=== PATIENT | male | born 1995 | race Caucasian/White ===

== ENCOUNTER 2024-11-11 08:30 | Outpatient (CLI) | payer BC, SELFPAY | END 2024-11-11 08:31 | disposition home or self-care (01) | LOC: AMB 11-12 09:43 | PROVIDERS: PCP Family Medicine; Visit Provider Emergency Medicine | DX: M54.9 Dorsalgia, unspecified (principal); M54.2 Cervicalgia | CPT/HCPCS: A0425; A0429 ==

== ENCOUNTER 2024-11-11 09:15 | Emergency (ER) | payer BC, SELFPAY ==
--- OUTSIDE RECORDS SUMMARY | 2024-11-11 09:08 | XMS_ITS | Encounter Summary ---
Author Organization [facility] Address [address] [place] [address] Care Team Providers Care Network Systems Analyst Name Role Phone AugustineLucy APRN, C.N.P. Primary Care Provide r Reason for Visit * Reason Onset Date Comments Appt Request 09/17/2024 Encounter Details Date Type Department Care Team (Late st Contact Info) Description 09/17/2024 Clinical Communication Department of Family Medicine in [place], [place] [address] [place] [address] Karen Alvarez APRN, C.N.P., M.S.N. [address] [place] [id number] Appt Request Social History Tobacco Use Types Packs/Day Years Used Date Smoking Tobacco: Former Cigarettes Q uit: 06/24/2020 Passive Smoke Exposure: Past Smokeless Tobacco: Never Alcohol Use Standard Drinks/Week Comments Not Currently 0 (1 standard drink = 0.6 oz pur e alcohol) last used 03/08 [facility] Utilities Answer Date Recorded In the past 12 months has e electric, gas, oil, or water company threatened to shut off services in your home? No 06/08/2024 Humiliation, Afraid, Rape, and Kick questionnair e Answer Date Recorded Within the last year, have y ou been afraid of your partner or ex-partner? No 03/03/2023 Within the last year, have y ou been humiliated or emotionally abused in other ways by your partner or ex-partner? No Within the last year, have y ou been kicked, hit, slapped, or otherwise physically hurt by your partner or ex-partner? No 03/03/2023 Within the last year, have y ou been raped or forced to have any kind of sexual activity by your partner or ex-partner? No 03/03/2023 Social Connection and Isolat ion Panel [NHANES] Answer Date Recorded In a typical week, how many times do you talk on the phone with family, friends, or neighbors? More than three times a week 12/05/2022 How often do you get togethe r with friends or relatives? Once a week 12/05/2022 How often do you attend chur or latter day services? Never 12/05/2022 Do you belong to any clubs o r organizations such as restoration groups, unions, fraternal or athletic groups, or school groups? No 12/05/2022 How often do you attend meet ings of the clubs or organizations you belong to? Never 12/05/2022 Are you , , di vorced, , never , or living with a partner? Never 12/05/2022 AUDIT-C Answer Date Recorded Q1: How often do you have a drink containing alc ohol? 2-3 times a week 12/05/2022 Q2: How many drinks containi ng alcohol do you have on a typical day when you are drinking? 1 or 2 12/05/2022 Q3: How often do you have si x or more drinks on one occasion? Monthly 12/05/2022 Overall Financial Resource Strain (CARDIA) Answe r Date Recorded How hard is it for you to pa y for the very basics like food, housing, medical care, and heating? Very hard 03/03/2023 PHQ-2 Answer Date Recorded PHQ-2 Score 6 09/20/2024 [facility] - Occupational Stress Questionnaire Answer Date Recorded Do you feel stress - tense, restless, nervous, or anxious, or unable to sleep at night because your mind is troubled all the time - these days? Very much 12/05/2022 Exercise Vital Sign Answer Date Recorde d On average, how many days pe r week do you engage in moderate to strenuous exercise (like a brisk walk)? 1 day 06/08/2024 On average, how many minutes do you engage in exercise at this level? 30 min 06/08/2024 Hunger Vital Sign Answer Date Recorded Within the past 12 months, y ou worried that your food would run out before you got the money to buy more. Never true 06/08/20 24 Within the past 12 months, t he food you bought just didn't last and you didn't have money to get more. Never true 06/08/2024 PRAPARE - Transportation Answer Date Re corded In the past 12 months, has l ack of transportation kept you from medical appointments or from getting medications? Yes 05/23 In the past 12 months, has l ack of transportation kept you from meetings, work, or from getting things needed for daily living? Yes 06/08/2024 Depression Answer Date Recor ded PHQ-9 Total Score (max 27) 27 09/20 Nutrition Answer Date Recorded On average, how many serving s of fruits and vegetables do you eat per day (serving size is equal to 1 cup or approximately the size of a tennis ball)? 0-2 06/08/2024 Dental Answer Date Recorded Dental: Regular Dentist No 11/10/19 21 Employment Answer Date Recorded Employment status Unemployed/not in th e paid workforce and NOT seeking employment 06/08/2024 Housing Stability Answer Date Recorded What is your living situation today? I have a [facility] place to live 06/08/2024 Education Answer Date Recorded What is the highest level of school you have completed or the highest degree you have received? 12th grade 03/30/2020 Sex and Gender Information Value Date Recorded Sex Assigned at Male 07/01/2021 9:57 AM CDT Legal Sex Male 10:06 PM NIGHT SHIFT Gender Identity Male 06/03/2020 8:27 AM CDT Sexual Orientation Lesbian or Singh 06/03/2020 8: 27 AM CDT documented as of this encounter Plan of Treatment Upcoming Encounters Date Type Department Care Team (Late st Contact Info) Description 11/19/2024 8:00 AM NIGHT SHIFT Telemedicine Department of Neurology in [place], [place] [address] [place] [address] Albino Vargas M.B., Ch.B. [address] [place] [address] Discharge Disposition: Home or Self Care documented as of this encounter Visit Diagnoses Not on filedocumented in this encounter Additional Health Concerns Assessment Noted Time PHQ-9 Depression Total Score: 27 024 7:17 PM NIGHT SHIFT documented as of this encounter Care Teams Network Systems Analyst Relationship Specialty Start Date End Date Lucy Augustine APRN, C.N.P. [address] [place] [phone] PCP - General Family Medicine 03/14/22 documented as of this encounter
--- OUTSIDE RECORDS SUMMARY | 2024-11-11 09:08 | XMS_ITS | Clinical Summary ---
Author Organization [facility] Address [facility] [place] [address] Care Team Providers Care Wafer Polishing Worker Name Role Phone Vannessa Alas DO Primary Care Provider [phone] Remedios Thomas MD Unavail able Allergies Active Allergy Reactions Criticality Noted Date Comments Baclofen Rash 07/02/2021 Medications divalproex (DEPAKOTE ER) 500 mg Extended-Releas e tablet Take 1,000 mg by mouth at bedtime. 4 Active lamoTRIgine (LAMICTAL XR) 200 mg extended release tablet Take 400 mg by mouth once daily. 3 Active hydrOXYzine HCL (ATARAX) 50 mg tabletIndicatio ns:Severe major depressive disorder (HC),Generalize d anxiety disorder Take 1 Tablet (50 mg) by mouth 3 times daily if needed (anxiety). 90 Tablet 5 Active desvenlafaxine succinate (PRISTIQ) 50 mg Extended-Releas e tabletIndicatio ns:Severe major depressive disorder (HC) Take 1 Tablet (50 mg) by mouth once daily. 30 Tablet 5 Active naltrexone (REVIA) 50 mg tabletIndicatio ns:Alcohol use disorder 25 mg (1/2 pill) twice a day 30 Tablet 5 Active FLUoxetine (PROZAC) 40 mg capsuleIndicati ons:Severe major depressive disorder (HC),Panic disorder,Genera lized anxiety disorder Take 1 Capsule (40 mg) by mouth once daily. 30 Capsule 5 Active diazePAM (VALIUM) 10 mg tabletIndicatio ns:Severe major depressive disorder (HC),Panic disorder,Recurr ent insomnia,Genera lized anxiety disorder Take 1 Tablet (10 mg) by mouth two times daily. 60 Tablet 5 Active citalopram (CELEXA) 40 mg tablet Take 40 mg by mouth. 3 10/19/19 25 Discontinu ed(*Medica tion adjustment ) hydrOXYzine HCL (ATARAX) 50 mg tablet Take 50 mg by mouth every 6 hours if needed. 3 10/19/19 25 Discontinu ed(Reorder (E-cancel not sent)) diazePAM (VALIUM) 5 mg tablet Take 5 mg by mouth once daily if needed. 4 10/19/19 25 Discontinu ed(Reorder (E-cancel not sent)) desvenlafaxine succinate (PRISTIQ) 100 mg extended release tablet Take 100 mg by mouth once daily in the morning. 4 10/19/19 25 Discontinu ed(*Medica tion adjustment ) valACYclovir (VALTREX) 1 gram tablet Take 1 g by mouth one time if needed (genital herpes). 4 10/19/19 25 Discontinu ed(*Patien t states no longer taking) propranoloL (INDERAL) 20 mg tablet Take 20 mg by mouth two times daily. BID PRN anxiety 4 10/19/19 25 Discontinu ed(*Patien t states no longer taking) diazePAM (VALIUM) 5 mg tabletIndicatio ns:Severe major depressive disorder (HC),Generalize d anxiety disorder,Panic attacks Take 1 Tablet (5 mg) by mouth once daily if needed (acute anxiety). 30 Tablet 5 10/29/19 25 Discontinu ed(Reorder (E-cancel not sent)) desvenlafaxine succinate (PRISTIQ) 25 mg extended release tabletIndicatio ns:Severe major depressive disorder (HC) Take 1 Tablet (25 mg) by mouth once daily. 30 Tablet 5 11/02/19 25 Discontinu ed(*Medica tion adjustment ) citalopram (CeleXA) 20 mg tabletIndicatio ns:Severe major depressive disorder (HC) Take 1 Tablet (20 mg) by mouth once daily. 30 Tablet 5 11/02/19 25 Discontinu ed(*Med complete/R egimen complete/L evel of care change) citalopram (CeleXA) 10 mg tabletIndicatio ns:Severe major depressive disorder (HC) Take 1 Tablet (10 mg) by mouth once daily. 30 Tablet 5 11/02/19 25 Discontinu ed(*Med complete/R egimen complete/L evel of care change) diazePAM (VALIUM) 5 mg tabletIndicatio ns:Severe major depressive disorder (HC),Generalize d anxiety disorder,Panic attacks Take 1 Tablet (5 mg) by mouth two times daily. As needed for acute anxiety, panic attacks 60 Tablet 1 5 11/02/19 25 Discontinu ed(*Medica tion adjustment ) Active Problems Problem Noted Date Diagnosed Date Alcohol use disorder, moderate, in early remissi on 10/29/2024 Panic attacks 10/29/2024 Recurrent insomnia 10/19/2024 Seizure 10/04/2024 Severe episode of recurrent major depressive disorder, without psychotic features 10/04/2024 Inability to cope 02/06/2023 Nicotine dependence 12/02/2022 Alcohol use disorder 07/18/2022 Primary hypertension 07/18/2022 Problem related to unspecified psychosocial circ umstances 09/12/2021 Hypertrophy of bone 08/03/2021 Opioid dependence in remission 08/03/2021 Panic disorder 02/26/2021 Dyssomnia 10/02/2020 Muscle spasm of back 06/15/2020 Limbic encephalitis 05/18/2020 Generalized anxiety disorder 01/02/2016 Severe major depressive disorder 01/02/2016 Resolved Problems Problem Noted Date Diagnosed Date Resolved Date Alcohol dependence in remission 01/17/2023 10/04/2024 Nondependent opioid abuse 08/03/2021 Encephalitis, myelitis, and encephalomyelitis 05/18/2010/04/2024 Encounters Date Type Department Care Team Description 11/10/2024 12:55 PM GUITAR MAKER HAND Telemedicine [facility] [place] [address] Nataliya Tineo NP Telehealth (Back and teeth pain/No vitals taken -virtual visit./) 11/10/2024 Travel 11/10/2024 Nurse Triage [facility] [address] [place] [address] Vannessa Alas, DO Back Injury 11/09/2024 Travel 11/09/2024 Telephone [facility] [address] [place] [address] Heather Moura, RN [facility] 11/08/2024 12:40 PM [employer]AR MA[employer] HAND Telemedicine [facility] [address] [place] [address] Avery Tuttle NP Back Pain 11/08/2024 Nurse Triage [facility] [address] [place] [address] Vannessa Alas, DO Back Injury 11/08/2024 Travel 11/08/2024 Telephone [facility] [address] [place] [address] Elvira Hernandez [facility] Care Coordination 11/08/2024 Telephone [facility] [address] [place] [address] Remedios Thomas MD Medication Management 11/07/2024 Travel 11/02/2024 1:15 PM GUITAR MAKER HAND Telemedicine [facility] [address] [place] [address] Remedios Thomas MD Telehealth ([place]); Medication Management 11/01/2024 Travel 10/29/2024 10:30 AM GUITAR MAKER HAND Telemedicine [facility] [address] [place] [address] Remedios Thomas MD Telehealth ([place]); Medication Management 10/28/2024 Travel 10/21/2024 Telephone [facility] [address] [place] [address] Remedios Thomas MD Referral (Mental Health ) 10/19/2024 8:30 AM GUITAR MAKER HAND Telemedicine [facility] [address] [place] [address] Remedios Thomas MD Mental Health Intake; Telehealth 10/04/2024 1:10 PM GUITAR MAKER HAND Office Visit [facility] [address] [place] [address] Vannessa Alas, Establish Care (recently moved here, would like referral for new psychiatrist) 10/04/2024 Travel 10/01/2024 Travel 09/25/2024 Travel from Last 3 Months Immunizations Name Administration Dates Next Due DTP 01/20/2002, 8,06/18/1997,05/03,03/01/1997 DTP-HIB 06/18/1997 HIB PRP-T (ActHIB,Hiberix) 01/26/1998,,05/03/1997,03/01 HPV 9 (Gardasil 9) 08/02/2022 Hep B, Adolescent/high Risk Infant 05/03/1997,,1996 Hepatitis A (Peds) 07/04/2001,04/09/2000 Hepatitis A (Peds),Unspecified 07/04/2001,1999 Hepatitis B (Adult) 04/09/2000,05/03/1997,1996 Hepatitis B (Peds) 04/09/2000,05/03/1997, 997 Hepatitis B, Unspecified 05/03/1997,03/01/1997 Hib Conjugate, Unspecified 01/26/1998,,05/03/1997,03/01 Inactivated Polio Vaccine 07/04/2001,01/26/1998 Influenza Virus, Unspecified 08/02/2022,08/29/20 20,07/16/2012 Influenza, IIV4 12/02/2022,,06/02/2019,07/16 MMR 07/04/2001,01/26/1998 Meningococcal Vaccine (Menactra) 05/15/2009 Oral Polio Vaccine 01/26/1998 Pneumococcal Conj 20-valent (Prevnar 20) 08/02/2022 Polio Virus, Unspecified 07/04/2001,03/1998,05/03/1997,03/01 Smallpox-Monkeypox (Jynneos) Live, PF 05/12/2024 Tdap 03/04/2022,05/15/2009 Tuberculin (PPD) 10/14/2018,10/07/2018 Tuberculin Skin Test, Unspecified 10/14/2018, Varicella Vaccine 05/15/2009,01/26/1998 Social History Tobacco Use Types Packs/Day Years Used Date Smoking Tobacco: Never Smokeless Tobacco: Never Tobacco Cessation:Counseling Given: Not Answered Alcohol Use Standard Drinks/Week Comments Not Currently 2 (1 standard drink = 0.6 oz pur e alcohol) PHQ-2 Answer Date Recorded PHQ-2 TOTAL SCORE 6 11/01/2024 Social Connections Answer Date Recorded Do you often feel lonely or isolated from those around you? 4 09/25/2024 Financial Resource Strain Answer Date R ecorded Difficulty of Paying Living Expenses 1 09/25/2024 Difficulty of Paying Living Expenses 2 09/25/2024 Food Insecurity Answer Date Recorded Do you worry your food will run out before you are able to buy more? 2 09/25/2024 Transportation Needs Answer Date Record ed Does lack of transportation keep you from medica l appointments? 2 09/25/2024 Does lack of transportation keep you from work, meetings or getting things that you need? 2 09/25/2024 Housing Stability Answer Date Recorded What is your housing situation today? 1 09/25/2024 Utilities Answer Date Recorded Do you have trouble paying f or utilities (for example, heat, electricity, water, phone)? 1 09/25/2024 Sex and Gender Information Value Date Recorded Sex Assigned at Not on file Legal Sex Male 12:29 PM GUITAR MAKER HAND Gender Identity Not on file Sexual Orientation Not on file Obstetrics History Last Filed Vital Signs Vital Sign Reading Time Taken Comments Blood Pressure 119/76 10/04/2024 1:19 PM GUITAR MAKER HAND Pulse 93 10/04/2024 1:19 PM GUITAR MAKER HAND Temperature 36.5 C (97.7 F) 06/29/2023 10:38 AM CDT Respiratory Rate 20 05/14/2023 9:38 AM CDT Oxygen Saturation 95% 06/29/2023 10:38 AM CDT Inhaled Oxygen Concentration - - Weight 100.2 kg (221 lb) 10/04/2024 1:19 PM GUITAR MAKER HAND Height 177.8 cm (5' 10) 05/14/2023 9:38 AM CDT Body Mass Index 31.71 05/14/2023 9:38 AM CDT Plan of Treatment Upcoming Encounters Date Type Department Care Team (Late st Contact Info) Description 11/11/2024 2:00 PM GUITAR MAKER HAND Office Visit [facility] [address] [place] [address] Vannessa Alas DO [address] [place] [address] 11/16/2024 9:30 AM GUITAR MAKER HAND Telemedicine [facility] [address] [place], [place] [address] Remedios Thomas MD [address] [address] 11/19/2024 8:00 AM GUITAR MAKER HAND Appointment [facility] [address] [place] [address] Health Maintenance Due Date Last Done Comments BMI (ht and wt on same day) for age 18+ 05/14/2024 05/14/2023, 09/23/2019 COVID-19 vaccine series ( season) 2024 07/26/2021, 10/26/2020, 10/05/2020 Influenza for age 9-49 05/23/2024 , 08/02/2022, 08/02/2022, Additional history exists Depression screening for age 12+ 11/02/2025 11/02/2024, 11/01/2024, 10/29/2024, Additional history exists Tetanus booster 03/04/2032 03/04/2022, 05/15/2009 HIV for age 15-65 Completed 08/31/2015, 08/31/2015 Hepatitis C screening for ag e 18-79 Completed 08/31/2015 Tdap Completed 03/04/2022, 05/15/2009 Pneumococcal series for age 6-49 Completed 08/02/20 22 Procedures Procedure Name Priority Date/Time Associated Diagnosis Comments ANTI HIV 1/2 STAT 08/31/2015 9:25 PM GUITAR MAKER HAND ANTI HCV STAT 08/31/2015 9:25 PM GUITAR MAKER HAND from Last 3 Months or Most Recently Relevant to Health Maintenance Results * ANTI HCV (08/31/2015 9:25 PM GUITAR MAKER HAND) HEPATITIS C ANTIBODY Non-Reacti ve Non-Reacti ve 09/01/2015 12:40 PM GUITAR MAKER HAND [facility] Blood specimen (specimen) BLOOD SPECIMEN / Unknown Venipuncture / Unknown 08/31/2015 9:25 PM GUITAR MAKER HAND 08/31/2015 9:29 PM GUITAR MAKER HAND [facility] - 09/01/2015 12:40 PM GUITAR MAKER HAND Antibodies to HCV not detected; does not exclude the possibility of exposure to HCV. [facility] Final Resu lt [facility] [address] [place] [address], * ANTI HIV 1/2 (08/31/2015 9:25 PM GUITAR MAKER HAND) HIV-1/HIV-2 ANTIBODY Non-Reacti ve Non-Reacti ve 09/01/2015 12:38 PM GUITAR MAKER HAND [facility] Blood specimen (specimen) BLOOD SPECIMEN / Unknown Venipuncture / Unknown 08/31/2015 9:25 PM GUITAR MAKER HAND 08/31/2015 9:29 PM GUITAR MAKER HAND Narrative [facility] - 09/01/2015 12:38 PM GUITAR MAKER HAND HIV-1 p24 and HIV-1/HIV-2 Ab not detected [facility] [employer] Final Resu lt [facility] [address] [place] [address], from Last 3 Months or Most Recently Relevant to Health Maintenance Insurance [employer] [facility] [employer] Care Teams Wafer Polishing Worker Relationship Specialty Start Date End Date Vannessa Alas DO [address] [place] [address] PCP - General Family Practice 10/04/24 Remedios Thomas MD [address] [facility] [address] [place] [address] Psychiatry 10/19/24
--- OUTSIDE RECORDS SUMMARY | 2024-11-11 09:08 | XMS_ITS | Clinical Summary ---
Author Organization [facility] Address [address] [place] [address] Care Team Providers Care Admissions Representative Name Role Phone Lucy Augustine APRN C.N.P. Primary Care Provide r Source Comments Patient records contain information from all sites at [facility]. For routine questions regarding patient records, call [phone] during business hours, M-F 8:00 AM - 5:00 PM Central Time. Record requests for emergency care only can be directed to [phone] at any time.[facility] Allergies Active Allergy Reactions Criticality Noted Date Comments Baclofen Rash 07/02/2021 Medications * This document contains information received from the source organization and may not represent a complete record from that organization. hydrOXYzine (ATARAX) 50 mg tablet Take 1 tablet (50 mg total) by mouth every 6 (six) hours as needed for anxiety. 30 tablet 1 05/21/2023 Active acetaminophen (TYLENOL) 500 mg tablet Take 1 tablet (500 mg total) by mouth every 6 (six) hours as needed for pain. 30 tablet 08/05/2023 Active citalopram (CeleXA) 40 mg tablet Take 1 tablet (40 mg total) by mouth daily with morning meal. 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 30 tablet 09/20/2024 Active divalproex (Depakote) 500 mg EC tablet Take 2 tablets (1,000 mg total) by mouth at bedtime. 60 tablet 09/20/2024 Active gabapentin (Neurontin) 300 mg capsule Take 1 capsule (300 mg total) by mouth 3 (three) times a day. 90 capsule 09/20/2024 Active lamoTRIgine ER (LaMICtaL XR) 200 mg 24 hr tablet Take 2 tablets (400 mg total) by mouth daily. 60 tablet 09/20/2024 Active propranoloL (InderaL) 20 mg tablet Take 1 tablet (20 mg total) by mouth 2 (two) times a day as needed (Anxiety). 60 tablet 2 09/20/2024 Active diazePAM (Valium) 5 mg tablet Take 1 tablet (5 mg total) by mouth daily as needed for anxiety. 30 tablet 09/20/2024 Active Active Problems Problem Noted Date Diagnosed Date Encephalitis And Encephalomyelitis Unspecified 1 Patient's Other Noncomplianc e With Medication Regimen For Other Reason 06/10/2024 Overview (06/10/2024): Extreme concerns related to Depakote compliance Gain Weight 11/12/2023 Opioid Mild Use Disorder (Abuse) Uncomplicated 0 10/16/2023 Depression Major Recurrent Moderate 06/04/2023 Coping Ineffective 02/06/2023 Moderate Or Severe Use Disor palmer (Dependence) Alcohol Remission 01/17/2023 Nicotine Dependence Cigarettes With Withdrawal 0 01/17/2023 Nicotine Dependence Other Tobacco Product With W ithdrawal 12/02/2022 Hypertension Essential Primary 07/18/2022 Opioid Use Unspecified In Remission 08/03/2021 Seizure 03/21/2021 Panic Disorder Episodic Paroxysmal Anxiety 02/26 Disturbance Sleep 10/02/2020 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 Arrhythmia Sinus 05/16/2020 Depression Major Recurrent S evere Without Psychotic Features 01/02/2016 Anxiety Generalized Disorder 01/02/2016 Resolved Problems Problem Noted Date Diagnosed Date Resolved Date Suicide Ideation 04/29/2023 05/07/2023 Suicide Ideation 12/03/2022 12/07/2022 Psychosocial Circumstance 09/12/2021 Spur Bone 08/03/2021 09/21/2024 Other Pulmonary Embolism Wit hout Acute Cor Pulmonale 06/23/2020 04/02/2021 Esophageal Varices Without Bleeding 06/23/2020 04/02/2021 Varices Gastric 06/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 Date Type Department Care Team Description 09/20/2024 3:30 PM [facility] Telemedicine Department of Family Medicine in [place], [place] [address] [place] [address] Meri Burgess APRN, C.N.P. 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 Appt Request 09/10/2024 Refill Department of Neurology in [address] [address] Albino Vargas M.B., Ch.B. Med Refill 08/12/2024 11:30 AM [facility] Office Visit Department of Family Medicine in [place], [place] [address] [place] [phone] Lucy Augustine APRN, C.N.P. Screening For Venereal Disease (Primary Dx); Herpes Simplex Genital Recurrent from Last 3 Months Immunizations Immunization Administration Dates Next Due 9vHPV 08/02/2022 DTP 01/20/2002, 8,06/18/1997,1996,03/01/1997 DTP / Hib 06/18/1997 HepA Pediatric/Adolescent 07/04/2001,04/09/2000 HepB (discontinued) adolesce nt/high risk infant 05/03/1997,03/01/1997,1996 HepB Adult 04/09/2000,05/03/1997,03/01/1997 HepB, Unspecified 04/09/2000,05/03/1997,03/01/19 97 Hib (PRP-T) (ACTHIB, HIBERIX) 01/26/1998 ,06/18/1997,05/03/1997,1996 Hib, Unspecified 01/26/1998, 7,05/03/1997,1996 IPV 07/04/2001,01/26/1998 Influenza, Seasonal, Injectable 07/16/2012,09/10 Influenza, Unspecified 08/02/2022,08/29/2020, MCV4 (Menactra)(Discontinued) 05/15/2009 MMR 07/04/2001,01/26/1998 OPV 01/26/1998 PCV20 08/02/2022 PPD Test 10/14/2018,10/07/2018 Polio, Unspecified 07/04/2001, 8,05/03/1997,1996 SARS-COV-2 (COVID-19) - PFIZ ER (Discontinued)(12 years or older) 07/26/2021,10/26/2020,10/05/2020 Tdap 03/04/2022,05/15/2009 Tuberculin Skin Test, Unspecified 10/14/2018, SHERLY 05/15/2009,01/26/1998 influenza vaccine quad (FLUZONE/FLUARIX) (6 months and older)(PF) 12/02/2022,08/02/2022,06/02/2019 Family History Medical History Relation Name Comments necrotizing fasciitis Maternal Grandmother Hypertension Mother Meaghan foot spur Mother Meaghan Relation Name Status Comments Father Alive Maternal Grandmother Mother Meaghan Alive Social History Tobacco Use Types Packs/Day Years Used Date Smoking Tobacco: Former Cigarettes Q uit: 06/24/2020 Passive Smoke Exposure: Past Smokeless Tobacco: Never Tobacco Cessation:Counseling Given: Not Answered Alcohol Use Standard Drinks/Week Comments Not Currently 0 (1 standard drink = 0.6 oz pur e alcohol) last used 03/08 [facility] Utilities Answer Date Recorded In the [...] How often do you attend chur or church services? Never 12/05/2022 Do you belong to any clubs o r organizations such as lutheran groups, unions, fraternal or athletic groups, or [...] Answer Date Recorded PHQ-2 Score 6 09/20/2024 [facility] Questionnaire Answer Date Recorded [...] your living situation today? I have a [facility] place to live 06/08/2024 Education Answer Date Recorded What is the highest level of school you have completed or the highest degree you have received? 12th grade 03/30/2020 Sex and Gender Information Value Date Recorded Sex Assigned at Male 07/01/2021 9:57 AM CDT Legal Sex Male 10:06 PM [facility] Gender Identity Male 06/03/2020 8:27 AM CDT Sexual Orientation Lesbian or Singh 06/03/2020 8: 27 AM CDT Last Filed Vital Signs Vital Sign Reading Time Taken Comments Blood Pressure 122/76 08/12/2024 11:18 AM [facility] Pulse 75 08/12/2024 11:18 AM [facility] Temperature 36 C (96.8 F) 08/12/2024 11:18 AM [facility] Respiratory Rate 29 04/10/2024 12:15 AM CDT Oxygen Saturation 96% 08/12/2024 11:18 AM [facility] Inhaled Oxygen Concentration - - Weight 110 kg (241 lb 11.2 oz) 08/12/2024 11:18 AM [facility] Height 177.8 cm (5' 10) 04/09/2024 9:18 PM CDT Body Mass Index 34.68 04/09/2024 9:18 PM CDT Plan of Treatment Upcoming Encounters Date Type Department Care Team (Late st Contact Info) Description 11/19/2024 8:00 AM [facility] Telemedicine Department of Neurology in [address] [phone] Albino Vargas M.B., Ch.B. [address] [place] [address] Discharge Disposition: Home or Self Care Health Maintenance Due Date Last Done Comments Visit: Chronic Disease, age 18+ 1996 HPV Vaccines (2 - Male 3-dos e series) 08/30/2022 08/02/2022 COVID-19 Vaccine ( - 2023-2 5 season) 2024 07/26/2021, 10/26/2020, 10/05/2020 Influenza Vaccine (#1) 2024 3, 08/02/2022, 08/02/2022, Additional history exists Depression Monitoring (PHQ-9 for quality tracking) 09/22/2024 Depression Monitoring (PHQ-9) 01/19/2025 09/20/2024 Office Visit for Blood Press ure Check / Re-check 08/12/2025 08/12/2024 Tobacco Cessation counseling 09/20/2025 09/20/2024, 02/06/2023 DTaP,Tdap,and Td Vaccines (8 - Td or Tdap) 03/04/2032 03/04/2022, 05/15/2009, 01/20/2002, Additional history exists Hepatitis B Vaccines Completed 04/09/2000, 04/09/2000, 05/03/1997, Additional history exists Hepatitis A Vaccines Completed 07/04/2001, 04/09/20 IPV Vaccines Completed 07/04/2001, 06/22, 01/26/1998, Additional history exists Varicella Vaccines Completed 05/15/2009, 01/26/1998 Pneumococcal vaccine (0-49 years) Completed 022 Glucose Test for Med Monitoring Discontinued 05/05/2024, 04/09/2024, 07/31/2023, Additional history exists HIV Screening Completed 08/12/2024, 11/20, 05/19/2020 Procedures Procedure Name Priority Date/Time Associated Diagnosis Comments HIV-1/-2 AG AND AB SCREEN, PLASMA Routine 08/12/2024 11:37 AM [facility] Screening For Venereal Disease RPR SCREEN W/ REFLEX TO TITER, S Routine 08/12/2024 11:37 AM [facility] Screening For Venereal Disease HCV AB SCRN W/REFLEX TO HCV PCR, S Routine 08/12/2024 11:37 AM [facility] Screening For Venereal Disease BASIC METABOLIC PANEL, S/P STAT 04/09/2024 10:31 PM CDT from Last 3 Months or Most Recently Relevant to Health Maintenance Results * RPR Screen w/ Reflex to Titer, Serum (08/12/2024 11:37 AM [facility]) RPR Screen w/ Reflex to Titer,S Negative Negative 08/13/2024 9:50 AM [facility] Comment: Lipemic Non-treponemal antibodies not detected. For additional information on interpretation of the syphilis reverse algorithm and results, see: [email or web address] Blood (Blood, Venous) 08/12/2024 11:37 AM [facility] 08/13/2024 7:16 AM [facility] Lucy Augustine APRN C.N.P. LAB MICROBIOLOGY - BL OOD ORDERABLES Final Result [facility] [address] [place] [address] [facility] [address] [place] [address] * HIV-1/-2 Ag and Ab Screen, Plasma (08/12/2024 11:37 AM [facility]) [facility] HIV Ag/Ab Screen, P Negative Negative 08/13/2024 10:38 AM [facility] Comment: Negative result does not rule out HIV infection. If exposure to HIV infection occurred <14 days ago, contact the laboratory to request addition of HIV-1/HIV-2 RNA detection, Plasma (HIP12). HIV-1 p24 Ag Screen, P Negative Negative 08/13/2024 10:38 AM [facility] Comment: Negative result does not rule out HIV infection. If exposure to HIV infection occurred <14 days ago, contact the laboratory to request addition of HIV-1/HIV-2 RNA detection, Plasma (HIP12). HIV-1 Ab Screen, P Negative Negative 08/13/2024 10:38 AM [facility] Comment: Negative result does not rule out HIV infection. If exposure to HIV infection occurred <14 days ago, contact the laboratory to request addition of HIV-1/HIV-2 RNA detection, Plasma (HIP12). HIV-2 Ab Screen, P Negative Negative 08/13/2024 10:38 AM [facility] Comment: Negative result does not rule out HIV infection. If exposure to HIV infection occurred <14 days ago, contact the laboratory to request addition of HIV-1/HIV-2 RNA detection, Plasma (HIP12). Blood (Blood, Venous) 08/12/2024 11:37 AM [facility] 08/12/2024 6:36 PM [facility] us Lucy Augustine APRN, C.N.P. LAB MICROBIOLOGY - BL OOD ORDERABLES Final Result Performing Organization Address [facility]/ZIP Co de Phone Number [facility] [address] [place] [address], [facility] in [address] [address] * HCV Ab Scrn w/Reflex to HCV PCR, Serum (08/12/2024 11:37 AM [facility]) HCV Ab Screen, S Negative Negative 08/12/2024 5:04 PM [facility] Blood (Blood, Venous) 08/12/2024 11:37 AM [facility] 08/12/2024 4:32 PM [facility] Narrative [facility] - 08/12/2024 5:04 PM [facility] Specimen Information: Specimen ID: [id number] Specimen Type: Blood Specimen Collection Start Date: 08/12/2024 11:37 AM Specimen Received Date: 08/12/2024 4:32 PM Specimen ID: [id number] Specimen Type: Blood Specimen Collection Start Date: 08/12/2024 11:37 AM Specimen Received Date: 08/12/2024 4:29 PM us Lucy Augustine APRN, C.N.P. LAB MICROBIOLOGY - BL OOD ORDERABLES Final Result [facility] [address] [place] [address], [place] [facility] in [place] [address] [place] [phone] * Basic Metabolic Panel (04/09/2024 10:31 PM CDT) Potassium, P 4.2 3.6 - 5.2 mmol/L 04/09/2024 11:00 PM CDT [facility] Sodium, P 137 135 - 145 mmol/L 04/09/2024 11:00 PM CDT [facility] Chloride, P 100 98 - 107 mmol/L 04/09/2024 11:00 PM CDT [facility] Bicarbonate, P 25 22 - 29 mmol/L 04/09/2024 11:00 PM CDT [facility] Anion Gap, P 12 7 - 15 04/09/2024 11:00 PM CDT [facility] BUN (Blood Urea Nitrogen), P 9 8 - 24 mg/dL 04/09/2024 11:00 PM CDT [facility] Creatinine 0.84 0.74 - 1.35 mg/dL 04/09/2024 11:00 PM CDT [facility] Estimated GFR (eGFR) >90 >=60 mL/min/BSA 04/09/2024 11:00 PM CDT [facility] Comment: Estimated GFR calculated using the 2020 CKD_EPI creatinine equation. Calcium, Total, P 9.8 8.6 - 10.0 mg/dL 04/09/2024 11:00 PM CDT [facility] Glucose, P 91 70 - 140 mg/dL 04/09/2024 11:00 PM CDT [facility] Blood (Blood, Venous) 04/09/2024 10:31 PM CDT 04/09/2024 10:41 PM CDT Chance Sun M.D. LAB BLOOD ADD-ON Final Res ult [facility] [place] [address], [facility] [place] [address] from Last 3 Months or Most Recently Relevant to Health Maintenance Insurance [facility] [place] [id number] Advance Directives For more information, please contact: [phone] * Full Code (Latest Code Status on File) Date Activated Date Inactivated Comments 04/29/2023 7:03 PM 05/07/2023 11:06 AM Question Answer Comments Full Code: Not Discussed Due to: Not medically appropriate * Full Code Date Activated Date Inactivated Comments 12/02/2022 3:10 PM 12/11/2022 8:32 PM Question Answer Comments Full Code: Not Discussed Due to: Not medically appropriate * Full Code Date Activated Date Inactivated Comments 06/15/2020 7:44 PM 06/16/2020 8:10 PM Question Answer Comments Full Code: Discussed * Full Code Date Activated Date Inactivated Comments 05/15/2020 4:10 PM 05/25/2020 4:01 PM Question Answer Comments Full Code: Not Discussed Due to: Patient does not have the [facility] Care Teams Admissions Representative Relationship Specialty Start Date End Date Lucy Augustine APRN, C.N.P. [address] [facility] [place] [address] PCP - General Family Medicine 03/14/22
--- OUTSIDE RECORDS SUMMARY | 2024-11-11 09:08 | XMS_ITS | Clinical Summary ---
Author Organization [facility] Address [address] [place] [address] Care Team Providers Care Teacher Visually Impaired Name Role Phone Lucy Augustine MEGHAN Primary Care Provider [phone] Allergies No known active allergies Social History Tobacco Use Types Packs/Day Years Used Date Smoking Tobacco: Never Assessed Sex and Gender Information Value Date Recorded Sex Assigned at Not on file Legal Sex Male 1:23 PM CDT Gender Identity Not on file Sexual Orientation Not on file Last Filed Vital Signs Vital Sign Reading Time Taken Comments Blood Pressure 120/76 05/05/2024 4:30 PM CDT Pulse 71 05/05/2024 4:30 PM CDT Temperature 36.7 C (98 F) 05/05/2024 1:54 PM CDT Respiratory Rate 12 05/05/2024 4:24 PM CDT Oxygen Saturation 99% 05/05/2024 4:24 PM CDT Inhaled Oxygen Concentration - - Weight 86.2 kg (190 lb) 05/05/2024 1:54 PM CDT Height 177.8 cm (5' 10) 05/05/2024 1:54 PM CDT Body Mass Index 27.26 05/05/2024 1:54 PM CDT Plan of Treatment Health Maintenance Due Date Last Done Comments ADVANCE CARE PLANNING 1996 ANNUAL REVIEW OF HM ORDERS 1996 YEARLY PREVENTIVE VISIT 12/17/1999 HPV IMMUNIZATION (2 - Male 3-dose series) 08/30/2022 08/02/2022 COVID-19 Vaccine ( season) 2024 07/26/2021, 10/26/2020, 10/05/2020 INFLUENZA VACCINE (#1) 2024 3, 08/02/2022, 08/29/2020, Additional history exists PHQ-2 (once per calendar year) 2024 DTAP/TDAP/TD IMMUNIZATION (8 - Td or Tdap) 03/04/2032 03/04/2022, 05/15/2009, 01/20/2002, Additional history exists ZOSTER IMMUNIZATION (1 of 2) 2046 HEPATITIS B IMMUNIZATION Completed 000, 05/03/1997, 03/01/1997, Additional history exists MENINGITIS IMMUNIZATION Aged Out 05/15/2009 No l onger eligible based on patient's age to complete this topic HEPATITIS C SCREENING Completed 08/31/2015 Pneumococcal Vaccine: Pediatrics (0 to 5 Years) and At-Risk Patients (6 to 49 Years) Aged Out 08/02/2022 No longer eligible based on patient's age to complete this topic HIV SCREENING Completed 12/02/2022, 08/31/2015 [facility] [employer] [facility] [employer] Care Teams Teacher Visually Impaired Relationship Specialty Start Date End Date Lucy Augustine NP [address] [place] [address] PCP - General 05/05/24
[2024-11-11 09:09] VITALS: BP 118/76; PULSE 62; RESP 16; TEMP 37.2; O2SAT 98; BMI 30.1
--- NOTE | 2024-11-11 09:34 | CRLHL7_ITS ---
For Patients: As a result of the Cures Act, medical imaging exams and procedure reports are released immediately into your electronic medical record. You may view this report before your referring provider. If you have questions, please contact your health care provider. INDICATION: PATIENT FELL BACKWARDS DOWN 8 STAIRS 2 DAYS AGO COMPARISON: None TECHNIQUE: CT of the cervical spine without contrast FINDINGS: No acute fracture or malalignment. Mild straightening of the normal cervical lordosis, likely positional. No listhesis. Vertebral body heights and intervertebral disc spaces are maintained. No spondylitic changes of the cervical spine. No spinal canal or neuroforaminal stenosis. No suspicious osseous lesions. The soft tissues are unremarkable. IMPRESSION: Unremarkable cervical spine CT with no fracture or malalignment. Please note that all CT scans at this facility use dose modulation, iterative reconstruction, and/or weight-based dosing when appropriate to reduce radiation dose to as low as reasonably achievable. Dictated by Zander Jon MD @ 11/11/2024 10:23:59 AM (Electronically Signed)
--- NOTE | 2024-11-11 09:34 | CRLHL7_ITS ---
For Patients: As a result of the Cures Act, medical imaging exams and procedure reports are released immediately into your electronic medical record. You may view this report before your referring provider. If you have questions, please contact your health care provider. INDICATION: PATIENT FELL BACKWARDS DOWN 8 STAIRS 2 DAYS AGO COMPARISON: None TECHNIQUE: CT of the cervical spine without contrast FINDINGS: There are 5 lumbar vertebral bodies. No acute fracture or malalignment. Normal lumbar lordosis is maintained. No listhesis. Vertebral body heights and intervertebral disc spaces are maintained. No spondylitic changes of the lumbar spine. No spinal canal or neuroforaminal stenosis. No suspicious osseous lesions. The soft tissues are unremarkable. IMPRESSION: Unremarkable lumbar spine CT with no fracture or malalignment. Please note that all CT scans at this facility use dose modulation, iterative reconstruction, and/or weight-based dosing when appropriate to reduce radiation dose to as low as reasonably achievable. Dictated by Zander Jon MD @ 11/11/2024 10:28:20 AM (Electronically Signed)
[2024-11-11] MEDS: KETOROLAC 30 MG/ML inj IM (09:40)
[2024-11-11] MEDS: OXYCODONE 5 MG TABLET PO (10:54)
--- OUTSIDE RECORDS SUMMARY | 2024-11-11 11:05 | XMS_ITS | Data Portability ---
Author Organization [place] - Lupe méndez, autoContract Address [address] [place] [address] Assessment Encounter Date Assessment Date Assessment LastModified by Organization Details LastModified Time 05/12/2024 05/12/2024 Rapid HIV negative in clinic today. No signs or symptoms of acute HIV infection in clinic today. No signs or symptoms of acute STI infection in clinic today. No signs or symptoms of acute MPX infection in clinic today. PrEP was discussed in detail today including potential SE's, importance of adherence. We discussed how 2:1:1 PrEP works and the differences between TVD and F/TAF and CAB-LA. We discussed that PrEP does not protect against any STI's. It takes about 7 days to be protective with rectal exposure and 21 days with vaginal/front exposure. Follow up visits will be every 3 months. Not available 05/12/2024 12:02:03 Plan of Treatment Reminders Order Date Submit Date Provider Last Modified By Organization Details Last Modified Time Details Appointments None recorded. Lab HIV (1+2) Ab, rapid, unspecified specimen 2023 024 CONSTANTINO Wan, [address], [place], [address], 4 13:35:50 HIV 1+2 Ab + HIV1 p24 Ag, quantitativ e immunoassay , serum 2023 024 [facility], [address] [facility], [place], [address], 4 07:27:58 CMP, serum or plasma 2023 024 [facility], [address], [place], [address], 4 07:27:57 lipid panel, serum 2023 [employer] [facility], [address], [place], [address], 4 07:27:57 hepatitis (A+B+C) panel, serum 2023 [facility] [facility], [address], [place], [address], 4 07:27:58 HIV-1 RNA genotype, PCR, serum or plasma 2023 [employer] [facility], [address], [place], [address], 4 17:14:38 valproic acid, total, serum 2023 [employer] [facility], [address], [place], [address], 4 07:27:58 CT + NG RNA, PCR, unspecified specimen 2023 024 [employer] [facility], [address], [place], [address], 4 07:27:59 CT + NG RNA, PCR, unspecified specimen 2023 024 [facility] [facility], [address], [place], [address], 4 07:28:00 CT + NG RNA, rectal 2023 024 [employer] [facility], [address], [place], [address], 4 07:27:59 unlisted lab - prep RPR(DX) w/refl titer and T.pallidum Ab, ia 2023 JUNCTION [facility], [address] [facility] [place], [address], 4 07:28:00 Referral None recorded. Procedures None recorded. Surgeries None recorded. Imaging None recorded. Medication Orders Descovy 200 mg-25 mg tablet 2023 [facility]) #[id number], [address] [facility] [address], [place], [id number], 11:54:50 Patient TargetsNo targets recorded. Patient Instructions Encounter Date Encounter Id Patient Instructions Last Modified By Organization Details Last Modified Time 05/12/2024 [id number] Pt offered condoms and educated on the importance of safe sex practices. Pt declined HIV 1 RNA Quant, no concerns of HIV with recent sexual partner. Not available 05/12/2024 12:01:50 Reason for Referral None Reported. Results Created Date Observation Date Name Description Value Unit Range Abnormal Flag Note LastModifiedBy Organization Detail LastModifiedTime 05/12/2005/13/2024 LIPID PANEL , STAND ANIKET cholesterol, total 156 mg/dL <200 normal Not Available [facility] [place] [facility] [address] [place], [address], 05/13/2024 07:27:56 05/12/2005/13/2024 LIPID PANEL , STAND ANIKET HDL cholesterol 44 mg/dL > or = 40 normal Not Available [facility] [place] [facility] [address] [facility] [place], [address], 05/13/2024 07:27:56 05/12/2005/13/2024 LIPID PANEL , STAND ANKIET triglyceride s 79 mg/dL <150 normal Not Available [facility] [place] [facility] [address] [facility] [place], [address], 05/13/2024 07:27:56 05/12/20 24 05/13/2024 LIPID PANEL , STAND ANIKET LDL-choleste rol 95 mg/dL _(giovanni c) normal Refer ence range : <100 Azam able range <100 mg/dL for prima ry preve ntion ; <70 mg/dL for patie nts with CHD or diabe tic patie nts with > or = 2 CHD risk facto rs. LDL-C is now calcu lated using the Gricelda n-Hop kins calcu latio n, which is a valid ated novel metho d provi ding janes r accur acy than the Fried corrine equat ion in the estim ation of LDL-C . Gricelda madrigal SS et al. BOBBY. 2013; 310(1 9): 2061- 2068 (http ://ed ucati on.Qu estUpheaval Arts. com/f aq/FA Q164) Not Available [facility] [place] [facility] [address] [facility], [place], [address], 05/13/2024 07:27:56 05/12/20 24 05/13/2024 LIPID PANEL , STAND ANIKET chol/HDLC ratio 3.5 (calc ) <5.0 normal Not Available [facility] [place] [facility] [address] [facility] [place], [address], 05/13/2024 07:27:56 05/12/20 24 05/13/2024 LIPID PANEL , STAND ANIKET non HDL cholesterol 112 mg/dL _(giovanni c) <130 normal For patie nts with diabe martha plus 1 major ASCVD risk facto r, treat ing to a non-H DL-C goal of <100 mg/dL (LDL- C of <70 mg/dL ) is araseli calleo n. Not Available [facility] [place] [facility] [address] [facility] [place], [address], 05/13/2024 07:27:56 05/12/20 24 05/13/2024 COMPR EHENS RUBY METAB OLIC PANEL glucose 82 mg/dL 65-99 normal Fasti ng refer ence inter larry Not Available [facility] [address] [place], [address], 05/13/2024 07:27:57 05/12/20 24 05/13/2024 COMPR EHENS RUBY METAB OLIC PANEL urea nitrogen (BUN) 4 mg/dL 7-25 low Not Available [facility] [address] [place], [address], 05/13/2024 07:27:57 05/12/20 24 05/13/2024 COMPR EHENS RUBY METAB OLIC PANEL creatinine 0.99 mg/dL 0.60-1 .24 normal Not Available [facility] [address] [place], [address], 05/13/2024 07:27:57 05/12/20 24 05/13/2024 COMPR EHENS RUBY METAB OLIC PANEL eGFR 107 mL/mi n/1.7 3m2 > or = 60 normal Not Available [facility] [address] [place], [address], 05/13/2024 07:27:57 05/12/20 24 05/13/2024 COMPR EHENS RUBY METAB OLIC PANEL BUN/creatini ne ratio 4 (calc ) 6-22 low Not Available [facility] [address] [place], [address], 05/13/2024 07:27:57 05/12/20 24 05/13/2024 COMPR EHENS RUBY METAB OLIC PANEL sodium 144 mmol/ L 135-14 6 normal Not Available [facility] [address] [place], [address], 05/13/2024 07:27:57 05/12/20 24 05/13/2024 COMPR EHENS RUBY METAB OLIC PANEL potassium 4.1 mmol/ L 3.5-5. 3 normal Not Available [facility] [address] [facility] [place], [address], 05/13/2024 07:27:57 05/12/20 24 05/13/2024 COMPR EHENS RUBY METAB OLIC PANEL chloride 105 mmol/ L 98-110 normal Not Available [facility] [address] [place], [address], 05/13/2024 07:27:57 05/12/20 24 05/13/2024 COMPR EHENS RUBY METAB OLIC PANEL carbon dioxide 24 mmol/ L 20-32 normal Not Available [facility] [address] [place], [address], 05/13/2024 07:27:57 05/12/20 24 05/13/2024 COMPR EHENS RUBY METAB OLIC PANEL calcium 9.7 mg/dL 8.6-10 .3 normal Not Available [facility] [address] [place], [address], 05/13/2024 07:27:57 05/12/20 24 05/13/2024 COMPR EHENS RUBY METAB OLIC PANEL protein, total 6.7 g/dL 6.1-8. 1 normal Not Available [facility] [address] [place] [address], [address], 05/13/2024 07:27:57 05/12/20 24 05/13/2024 COMPR EHENS RUBY METAB OLIC PANEL albumin 4.4 g/dL 3.6-5. 1 normal Not Available [facility] [address] [place], [address], 05/13/2024 07:27:57 05/12/20 24 05/13/2024 COMPR EHENS RUBY METAB OLIC PANEL globulin 2.3 g/dL_ (calc ) 1.9-3. 7 normal Not Available [facility] [address] [facility] [place], [address], 05/13/2024 07:27:57 05/12/2005/13/2024 COMPR EHENS RUBY METAB OLIC PANEL albumin/glob ulin ratio 1.9 (calc ) 1.0-2. 5 normal Not Available [facility] [address] [place], [address], 05/13/2024 07:27:57 05/12/20 24 05/13/2024 COMPR EHENS RUBY METAB OLIC PANEL bilirubin, total 0.5 mg/dL 0.2-1. 2 normal Not Available [facility] [address] [place], [address], 05/13/2024 07:27:57 05/12/20 24 05/13/2024 COMPR EHENS RUBY METAB OLIC PANEL alkaline phosphatase 70 U/L 36-130 normal Not Available [facility] [address] [place], [address], 05/13/2024 07:27:57 05/12/20 24 05/13/2024 COMPR EHENS RUBY METAB OLIC PANEL AST 22 U/L 10-40 normal Not Available [facility] [address] [place], [address], 05/13/2024 07:27:57 05/12/20 24 05/13/2024 COMPR EHENS RUBY METAB OLIC PANEL ALT 16 U/L 9-46 normal Not Available [facility] [address] [place], [address], 05/13/2024 07:27:57 05/12/20 24 05/13/2024 HEPAT ITIS PANEL , GENER AL hepatitis A Ab, total REACTI VE non-re active abnormal For addit ional infor bobbi andrews e refer to http: //sofia madrigal.que stdia gnost ics.c om/fa q/FAQ 202 (This link is being provi ded for infor matio nal/ educa magaly l purpo ses only. ) Not Available [facility] [address] [place], [address], 05/13/2024 16:06:27 05/12/20 24 05/13/2024 HEPAT ITIS PANEL , GENER AL hepatitis B surface antibody ql NON-RE ACTIVE non-re active normal Not Available [facility] [place] [facility] [address] [place], [address], 05/13/2024 16:06:27 05/12/20 24 05/13/2024 HEPAT ITIS PANEL , GENER AL hepatitis B surface antigen NON-RE ACTIVE non-re active normal For addit ional infor bobbi andrews e refer to http: //edu catjennifer n.que stdia gnost ics.c om/fa q/FAQ (This link is being provi ded for infor matio nal/ educa magaly l purpo ses only. ) Not Available [facility] [place] [facility] [address] [place], [address], 05/13/2024 16:06:27 05/12/20 24 05/13/2024 HEPAT ITIS PANEL , GENER AL hepatitis B core Ab total NON-RE ACTIVE non-re active normal For addit ional infor bobbi andrews e refer to http: //edu catio n.que stdia gnost ics.c om/fa q/FAQ 202 (This link is being provi ded for infor matio nal/ educa magaly l purpo ses only. ) Not Available [facility] [place] [facility] [address] [place], [address], 05/13/2024 16:06:27 05/12/20 24 05/13/2024 HEPAT ITIS PANEL , GENER AL hepatitis C antibody NON-RE ACTIVE non-re active normal HCV antib jeffrey was non-r eacti ve. There is no labor atory evide nce of HCV infec tion. In most cases , no furth er actio n is requi red. Howev er, if recen t HCV expos ure is suspe cted, a test for HCV RNA (test code 78848 ) is sugge sted. For addit ional infor matio n pleas e refer to http: //[facility] nSabraque stdia gnost ics.c om/fa q/FAQ 22v1 (This link is being provi ded for infor matio nal/ educa magaly l purpo ses only. ) Not Available [facility] [place] [facility] [address] [facility], [place], [address], 05/13/2024 16:06:27 05/12/20 24 05/13/2024 HIV 1/2 ANTIG EN/AN TIBOD Y,FOU RTH GENER ATION W/RFL HIV Ag/Ab, 4TH gen NON-RE ACTIVE non-re active normal HIV-1 antig en and HIV-1 /HIV- 2 antib odies were not detec tami. There is no labor atory evide nce of HIV infec tion. PLEAS E NOTE: This infor matio n has been discl osed to you from recor ds whose confi denti ality may be prote cted by state law. If your state requi res such prote ction , then the state law prohi bits you from makin g any furth er discl osure of the infor matio n witho ut the speci fic writt en conse nt of the perso n to whom it perta ins, or as other monge permi tted by law. A gener al autho rizat ion for the relea se of medic al or other infor matio n is NOT suffi cient for this purpo se. For addit ional infor matio n pleas e refer to http: //[facility] nbekah stdia gnost ics.c om/fa q/FAQ 106 (This link is being provi ded for infor matio nal/ educa magaly l purpo ses only. ) The perfo rmanc e of this assay has not been clini shawn valid ated in patie nts less than 2 years old. Not Available [facility] [place] [facility] [address] [facility] [place], [address], 05/13/2024 16:06:27 05/12/2005/13/2024 VALPR OIC ACID valproic acid 63.7 mg/L 50.0-1 00.0 normal Not Available [facility] [place] [facility] [address] [place], [address], 05/13/2024 13:51:00 05/12/20 24 05/16/2024 CHLAM YDIA/ N. GONOR RHOEA E RNA, TMA, RECTA L chlamydia trachomatis RNA, tma, rectal NOT DETECT ED normal Not Available [facility] [place] [facility] [address] [facility], [place], [address], 05/16/2024 01:17:26 05/12/20 24 05/16/2024 CHLAM YDIA/ N. GONOR RHOEA E RNA, TMA, RECTA L neisseria gonorrhoeae RNA, tma, rectal NOT DETECT ED normal REFER ENCE RANGE : NOT DETEC TAMI Metho dolog y: Trans cript ion Media tami Ampli ficat ion (TMA) to detec t RNA. The ramana tical perfo rmanc e tr cteri stics of this assay have been deter mined by [facility]. The modif icati ons have not been clear ed or appro isreal by the FDA. This assay has been valid ated pursu ant to the CLIA regul ation s and is used for clini giovanni purpo ses. Not Available [facility] [place] [facility] [address] [facility] [place], [address], 05/16/2024 01:17:26 05/12/20 24 05/16/2024 CHLAM YDIA/ N. GONOR RHOEA E RNA, TMA, THROA T chlamydia trachomatis RNA, tma, throat NOT DETECT ED normal Not Available [facility] [place] [facility] [address] [facility] [place], [address], 05/16/2024 01:31:54 05/12/20 24 05/16/2024 CHLAM YDIA/ N. GONOR RHOEA E RNA, TMA, THROA T neisseria gonorrhoeae RNA, tma, throat NOT DETECT ED normal REFER ENCE RANGE : NOT DETEC TAMI Metho dolog y: Trans cript ion Media tami Ampli ficat ion (TMA) to detec t RNA. The ramana tical perfo rmanc e tr cteri stics of this assay have been deter mined by [employer] [facility]. The modif icati ons have not been clear ed or appro isreal by the FDA. This assay has been valid ated pursu ant to the CLIA regul ation s and is used for clini giovanni purpo ses. For addit ional infor bobbi andrews e refer to https ://ed ucati on.qu estMWHSs. com/f aq/FA Q154 (This link is being provi ded for infor sherwin nal/e ducat ional purpo ses only. ) Not Available [facility] [place] [facility] [address] [place], [address], 05/16/2024 01:31:54 05/12/20 24 05/13/2024 CHLAM YDIA/ N. GONOR RHOEA E RNA, TMA, UROGE NITAL chlamydia trachomatis RNA, tma, urogenital NOT DETECT ED not detect ed normal Not Available [facility] [place] [facility] [address] [place], [address], 05/13/2024 22:30:34 05/12/20 24 05/13/2024 CHLAM YDIA/ N. GONOR RHOEA E RNA, TMA, UROGE NITAL neisseria gonorrhoeae RNA, tma, urogenital NOT DETECT ED not detect ed normal Not Available [facility] [place] [facility] [address] [place], [address], 05/13/2024 22:30:34 05/12/20 24 05/13/2024 CHLAM YDIA/ N. GONOR RHOEA E RNA, TMA, UROGE NITAL comment The ramana tical perfo rmanc e tr cteri stics of this assay , when used to test SureP ath(T M) speci mens have been deter mined by [facility]. The modif icati ons have not been clear ed or appro isreal by the FDA. This assay has been valid ated pursu ant to the CLIA regul ation s and is used for clini giovanni purpo ses. For addit ional infor bobbi andrews e refer to https ://ed ucati on.qu estdi LIFEmees. com/f aq/FA Q154 (This link is being provi ded for infor sherwin madrigal/ educa magaly l purpo ses only. ) Not Available [facility] [place] [facility] [address] [place], [address], 05/13/2024 22:30:34 05/12/20 24 05/13/2024 PREP RPR(D X) W/REF L TITER AND T.PAL LIDUM AB, IA prep RPR (DX) w/rfl titer and confirmatory test NON-RE ACTIVE non-re active normal No labor atory evide nce of syphi lis. If recen t expos ure is suspe cted, submi t a new sampl e in 2-4 weeks . Not Available [facility] [place] [facility] [address] [facility], [place], [address], 05/13/2024 13:51:03 05/12/20 24 05/15/2024 HIV 1 RNA, QL REAL TIME PCR HIV 1 RNA, ql real time PCR Not Detect ed not detect ed HIV-1 RNA is not detec tami. No labor atory evide nce of HIV infec tion. The HIV-1 RNA, Quali tativ e Real- Time PCR assay is recom carlie d for use as part of a multi -test HIV-1 /HIV- 2 scree lety and diagn ostic algor ithm. This assay can also be used to resol ve indet ermin ate HIV-1 antib jeffrey assay resul ts, and to test for HIV-1 infec tion in patie nts less than 2 years old. When a 4th gener ation HIV multi -test scree lety and diagn ostic algor ithm is used: If the test resul ts inclu de a repea tedly react ruby HIV-1 /2 Antig en/An tibod y (4th gener ation ) scree n, follo wed by negat ruby confi rmato ry tests for HIV-1 and 2 antib odies and HIV-1 RNA by PCR, the most likel y inter preta tion is a non-s pecif ic (bio logic al false posit ruby) react ion in the 4th gener ation scree lety assay . There is no curre nt labor atory evide nce of HIV infec tion. Repea t testi ng on a secon d speci men is not gener ally indic ated, but may be appro priat e if there are known risk facto rs for recen t HIV expos ure. Not Available [facility] [place] [facility] [address] [facility], [place], [address], 05/15/2024 17:14:38 05/12/20 24 05/12/2024 HIV (1+2) Ab, rapid , unspe cifie d speci men Rapid HIV negati ve Not Available [facility] [address], [place], [address], 05/12/2024 11:52:11 Result Notes None recorded. Problems Name Problem SNOMED Code Status Onset Date Resolution Date Notes Provider Name and Address Organization Details Recorded Time Seizure disorder 653690607 Active 024 Wale Dumas CNP [address] [place], [address], [place] [facility] 4 11:49:12 Depressive disorder 24044646 Active 024 Wale Dumas CNP [address], [place], [address], [place] [facility] 11:49:22 Anxiety disorder 997334451 Active 024 Wale Dumas CNP [address], [place], [address] [place] [address] - [facility] 4 11:49:30 Problem Notes None recorded. Medical Equipment None Reported. Allergies Allergen ID Allergen Name Allergen Category Reaction Reaction Severity Criticality Documentation Date Start Date Code Code System Note Provider Name and Address Organization Details Recorded Time 2243 baclofen medicatio n rash Not available Not available 05/12/2024 1292 RxNorm Not Available Not Available Not Available Medications Name Sig Start Date Stop Date Status Note LastModified by Organization Details LastModified Time lamotrigine 200 mg tablet Take 1 tablet every day by oral route. active Not Available Not Available No t Available hydroxyzine HCl 50 mg tablet Take 1 tablet every 6 hours by oral route as needed. active Not Available Not Available No t Available divalproex 500 mg tablet,delaye d release active Not Available Not Available No t Available propranolol 10 mg tablet Take 2 tablets twice a day by oral route. active Not Available Not Available No t Available propranolol 20 mg tablet active Not Available Not Available Not Available Celexa 40 mg tablet Take 1 tablet every day by oral route. active Not Available Not Available No t Available Depakote 250 mg tablet,delaye d release Take 4 tablets every day by oral route. active Not Available Not Available No t Available hydroxyzine pamoate 25 mg capsule active Not Available Not Available Not Available Descovy 200 mg-25 mg tablet Take 1 tablet every day by oral route. active Not Available Not Available No t Available Vitals Date Recorded Body weight Body mass index (BMI) Body height Body temperature Oxygen saturation Oxygen saturation in Arterial blood by Pulse oximetry Respiratory rate Heart rate Systolic blood pressure Diastolic blood pressure Provider Name and Address Organization Details Last Updated DateTime 4 [address]12.2 7 g 27.3 kg/m2 177.8 cm 98 [degF] 97 % 97 % 16 /min 90 /min 115 mm[Hg] 84 mm[Hg] Wale Dumas CNP [address], [place], [address] [place], [place] - [facility] 4 11:46:05 Social History Question Answer Notes LastModified by Organizat ion Details LastModified Time Tobacco Smoking Status Current Every Day Smoker Wale Dumas CNP [address], [place], [address], [place] - [facility] 05/12/2024 11:51:31 What Is Your Level Of Alcohol Consumption? Heavy Information not available 05/12/2024 What Is Your Level Of Caffeine Consumption? Moderate Information not available 05/12/2024 Have You Been To An Area Known To Be High Risk For COVID-19? No Information not available 05/12/2024 Are You Currently Employed? No Information not available 05/12/2024 What Type Of Diet Are You Following? REGULAR Information not available 05/12/2024 Which Illicit Or Recreational Drugs Have You Used? THC Information not available 05/12/2024 Are There Any Guns Present In Your Home? No Information not available 05/12/2024 Have You Had Direct Contact, Or Contact During Intimacy, With Monkeypox Rash, Scabs, Or Body Fluids From A Person With Monkeypox? No Information not available 05/12/2024 Have You Had Contact With Respiratory Secretions From A Person With Monkeypox? No Information not available 05/12/2024 Do You Use Protection During Sex? Usually Information not available 05/12/2024 What Is Your Relationship Status? Single Information not available 05/12/2024 Are You Sexually Active? Yes Information not available 05/12/2024 Do You Participate In Social Media? Yes Information not available 05/12/2024 Do You Feel Stressed (tense, Restless, Nervous, Or Anxious, Or Unable To Sleep At Night)? [id number] Information not available 05/12/2024 Do You Use Any Illicit Or Recreational Drugs? Yes Information not available 05/12/2024 Do You Have Any Dietary Restrictions? No Information not available 05/12/2024 Do You Or Have You Ever Used Any Other Forms Of Tobacco Or Nicotine? No Information not available 05/12/2024 Sex: Male Functional Status Question Answer Note LastModified by Organizat ion Details LastModified Time Do you have transportation difficulties? No Information not available 05/12/2024 Are you able to care for yourself? Yes Information n ot available 05/12/2024 What is your exercise level? Occasional Information not available 05/12/2024 Mental Status None recorded. Family History Nothing Reported. Medical History Condition Response Any Previous STIs Y Immunizations Vaccine Type Date Status Note Provider Nam e and Address Organization Details Recorded Time Vaccinia, smallpox Mpox vaccine live, PF, SQ or ID injection 05/12/2024 completed Wale Dumas CNP [address] [place], [address], [facility] 05/12/2024 12:12:43 Past Encounters Encounter ID Performer Location Encounter Start Date Encounter Closed Date Diagnosis/Indication Diagnosis SNOMED-CT Code Diagnosis ICD10 Code Diagnosis Note [id number] [address]ON[address] [place] [address] 05/12/2024 11:37:11 05/12/2024 16:52:53 Pre-exposure prophylaxis 3794557550 Z29.81 High risk homosexual behavior 1563361185 17710 Z72.52 Therapeuti c drug monitoring assay 07384329 Z51.81 Health Concerns Section Related Observation LastModified by Organization Detai ls LastModified Time None Recorded Concern Status LastModified by Organization Details LastModified Time None Recorded Advance Directives Directive None Recorded Payers Encounter Date Sequence Insurance Name Policy Number Policy Lovett Covered Member ID Lovett Member ID Guarantor Name 05/12/2024 1 [id number]-AL [id number] Raheem Villela [id number] Raheem Villela Notes Date Note Type Note Provider Name and Address Organization Details Recorded Time 05/12/2024 text/html 28 year old male comes to [facility] from [place] to intiate PrEP treatment. Risk factors include: alcohol and THC use, insertive sexual encounters with MSM without a condom, anonymous sexual partners, sex under the influence, oral sex without a condom. Pt reports 5 sexual partners in the last six months. Last unprotected sexual encounter was: one month ago Pt denies any current STI symptoms. Wale Dumas CNP [address] [place], [address], [facility] 05/12/2024 12:12:58
--- OUTSIDE RECORDS SUMMARY | 2024-11-11 11:05 | XMS_ITS | Clinical Summary ---
Author Organization [place] Address [address] [place] [address] Care Team Providers Care Glazing Superintendent Name Role Phone Lucy Augustine MEGHAN Primary Care Provider [phone] Allergies No known active allergies Social History [...] topic HIV SCREENING Completed 12/02/2022, 08/31/2015 [facility] [employer] Care Teams Glazing Superintendent Relationship Specialty Start Date End Date Lucy Augustine NP [address] [place] [address] PCP - General 05/05/24
--- OUTSIDE RECORDS SUMMARY | 2024-11-11 11:05 | XMS_ITS | Referral Summary ---
Author Organization [facility] Address [address] [place] [address] Care Team Providers Care Maple Products Maker Name Role Phone Rodney Pearson MD Primary Care Provider [phone] Allergies Active Allergy Reactions Criticality Noted Date Comments Baclofen Rash 07/02/2021 Medications hydroCHLOROthia zide (HYDRODIURIL) 25 mg oral tablet Take 1 tablet (25 mg) by mouth once daily. 30 tablet 1 07/12/2022 Active hydrOXYzine HCl (ATARAX) 25 mg oral tablet Take 2 tablets (50 mg) by mouth three times a day as needed for sleep (anxiety). 30 tablet 07/24/2022 Active busPIRone (BUSPAR) 5 mg oral tabletIndicatio ns:FOREIGN (generalized anxiety disorder) Take 1 tablet (5 mg) by mouth twice a day. 60 tablet 1 07/25/2022 Active ibuprofen (ADVIL;MOTRIN) 200 mg oral tablet Take 200 mg by mouth. Active guaiFENesin (MUCINEX) 600 mg oral extended release tablet 12 HR Take 1 tablet (600 mg) by mouth twice a day. 30 tablet 08/02/2022 Active fluticasone (FLONASE) 50 mcg/actuation nasal spray Instill 2 sprays into EACH nare ONCE DAILY. 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 01/02/2016 Immunizations Name Administration Dates Next Due DTP 01/20/2002,,06/18/1997,05/03,03/01/1997 DTaP (Infanrix) 01/20/2002, 8,06/18/1997,05/03,03/01/1997 HIB 01/26/1998, 7,05/03/1997,03/01 HPV9 08/02/2022 Hep A Pediatric 07/04/2001,04/09/2000 Hep B Pediatric 04/09/2000,05/03/1997,03/01/1997 Influenza recombinant (FluBl ok Quadrivalent PF) 08/02/2022,06/02/2019,07/16/2012 MMR 07/04/2001,01/26/1998 Meningococcal MCV4P 05/15/2009 Pfizer 12+ Yrs Monovalent CO VID Vaccine (purple cap) 07/26/2021,10/26/2020,10/05/2020 Pneumococcal PCV20 08/02/2022 Polio IPV 05/03/1997,03/01/1997 Tdap 03/04/2022,05/15/2009 Varicella 05/15/2009 Social History Tobacco Use Types Packs/Day Years Used Date Smoking Tobacco: Every Day Cigarettes Smokeless Tobacco: Never Tobacco Cessation:Ready to Q uit: Not Asked; Counseling Given: Not Answered Sex and Gender Information Value Date Recorded Sex Assigned at Not on file Legal Sex Male 10:53 AM CDT Gender Identity Not on file Sexual Orientation Not on file Last Filed Vital Signs Vital Sign Reading Time Taken Comments Blood Pressure 132/88 08/02/2022 9:52 AM SALESPERSON PARTS Pulse 88 08/02/2022 9:40 AM SALESPERSON PARTS Temperature 36.4 C (97.5 F) 08/02/2022 9:40 AM SALESPERSON PARTS Respiratory Rate - - Oxygen Saturation 99% 08/02/2022 9:40 AM SALESPERSON PARTS Inhaled Oxygen Concentration - - Weight 88.5 kg (195 lb) 08/02/2022 9:40 AM SALESPERSON PARTS Height 177.8 cm (5' 10) 08/02/2022 9:40 AM SALESPERSON PARTS Body Mass Index 27.98 08/02/2022 9:40 AM SALESPERSON PARTS Plan of Treatment Not on file Care Teams Maple Products Maker Relationship Specialty Start Date End Date Rodney Pearson MD [address] [facility] [address] [place] [address] PCP - General Family Medicine - 07/25/22
--- OUTSIDE RECORDS SUMMARY | 2024-11-11 11:05 | XMS_ITS | Clinical Summary ---
Author Organization [facility] Address [facility] [place] [address] Care Team Providers Care Gizzard Peeler Name Role Phone Vannessa Alas DO Primary Care Provider [phone] Remedios Thomas MD Unavail able Allergies Active [...] Department Care Team Description 11/10/2024 12:55 PM COMMUNICATIONS CONSULTANT Telemedicine [facility] [place] [address] Nataliya Tineo NP Telehealth (Back and teeth pain/No vitals taken -virtual visit./) 11/10/2024 Travel 11/10/2024 Nurse Triage [facility] [address] [place] [address] Vannessa Alas, DO Back Injury 11/09/2024 Travel 11/09/2024 Telephone [facility] [address] [place] [address] Heather Moura, RN [facility] 11/08/2024 12:40 PM COMMUNICATIONS CONSULTANT Telemedicine [facility] [address] [place] [address] Avery Tuttle NP Back Pain 11/08/2024 Nurse Triage [facility] [address] [place] [address] Vannessa Alas, DO Back Injury 11/08/2024 Travel 11/08/2024 Telephone Formerly Named [facility] [address] [place] [address] [facility] Care Coordination 11/08/2024 Telephone Formerly Named [facility] [address] [place] [address] Remedios Thomas MD Medication Management 11/07/2024 Travel 11/02/2024 1:15 PM COMMUNICATIONS CONSULTANT Telemedicine Formerly Named [facility] [address] [place] [address] Remedios Thomas MD Telehealth (SD); Medication Management 11/01/2024 Travel 10/29/2024 10:30 AM COMMUNICATIONS CONSULTANT Telemedicine Formerly Named [facility] [address] [place] [address] Remedios Thomas MD Telehealth (SD); Medication Management 10/28/2024 Travel 10/21/2024 Telephone Former[facility] [address] [place] [address] Remedios Thomas MD Referral (Mental Health ) 10/19/2024 8:30 AM COMMUNICATIONS CONSULTANT Telemedicine [facility] [address] [place] [address] Remedios Thomas MD Mental Health Intake; Telehealth 10/04/2024 1:10 PM COMMUNICATIONS CONSULTANT Office Visit [facility] [address] [place] [address] Vannessa Alas, Establish Care (recently moved here, [...] on file Legal Sex Male 12:29 PM COMMUNICATIONS CONSULTANT Gender Identity Not on file Sexual Orientation Not on file Obstetrics History Last Filed Vital Signs Vital Sign Reading Time Taken Comments Blood Pressure 119/76 10/04/2024 1:19 PM COMMUNICATIONS CONSULTANT Pulse 93 10/04/2024 1:19 PM COMMUNICATIONS CONSULTANT Temperature 36.5 C (97.7 F) 06/29/2023 10:38 AM CDT Respiratory Rate 20 05/14/2023 9:38 AM CDT Oxygen Saturation 95% 06/29/2023 10:38 AM CDT Inhaled Oxygen Concentration - - Weight 100.2 kg (221 lb) 10/04/2024 1:19 PM COMMUNICATIONS CONSULTANT Height 177.8 cm (5' 10) 05/14/2023 9:38 AM CDT Body Mass Index 31.71 05/14/2023 9:38 AM CDT Plan of Treatment Upcoming Encounters Date Type Department Care Team (Late st Contact Info) Description 11/11/2024 2:00 PM COMMUNICATIONS CONSULTANT Office Visit [facility] [address] [place] [address] Vannessa Alsa DO [address] [place] [address] 11/16/2024 9:30 AM COMMUNICATIONS CONSULTANT Telemedicine [facility] [address] [place], [place] [address] Remedios Thomas MD [address] [address] 11/19/2024 8:00 AM COMMUNICATIONS CONSULTANT Appointment [facility] [address] [place] [address] Health Maintenance Due Date Last Done Comments [...] ANTI HIV 1/2 STAT 08/31/2015 9:25 PM COMMUNICATIONS CONSULTANT ANTI HCV STAT 08/31/2015 9:25 PM COMMUNICATIONS CONSULTANT from Last 3 Months or Most Recently Relevant to Health Maintenance Results * ANTI HCV (08/31/2015 9:25 PM COMMUNICATIONS CONSULTANT) HEPATITIS C ANTIBODY Non-Reacti ve Non-Reacti ve 09/01/2015 12:40 PM COMMUNICATIONS CONSULTANT [facility] Blood specimen (specimen) BLOOD SPECIMEN / Unknown Venipuncture / Unknown 08/31/2015 9:25 PM COMMUNICATIONS CONSULTANT 08/31/2015 9:[address] [facility] - 09/01/2015 12:40 PM COMMUNICATIONS CONSULTANT Antibodies to HCV not detected; does not exclude the possibility of exposure to HCV. us Stanley GRIGGS SEND OUTS Final Resu lt [facility] [address] [place] [address], * ANTI HIV 1/2 (08/31/2015 9:25 PM COMMUNICATIONS CONSULTANT) HIV-1/HIV-2 ANTIBODY Non-Reacti ve Non-Reacti ve 09/01/2015 12:38 PM COMMUNICATIONS CONSULTANT [facility] Blood specimen (specimen) BLOOD SPECIMEN / Unknown Venipuncture / Unknown 08/31/2015 9:25 PM COMMUNICATIONS CONSULTANT 08/31/2015 9:29 PM COMMUNICATIONS CONSULTANT Narrative [facility] - 09/01/2015 12:38 PM COMMUNICATIONS CONSULTANT HIV-1 p24 and HIV-1/HIV-2 Ab not detected us Stanley GRIGGS SEND OUTS Final Resu lt [facility] [address] [place] [address], from Last 3 Months or Most Recently Relevant to Health Maintenance [facility] [employer] Care Teams Gizzard Peeler Relationship Specialty Start Date End Date Vannessa Alas DO [address] [place] [address] PCP - General Family Practice 10/04/24 Remedios Thomas MD [address] [facility] [address] [place] [address] Psychiatry 10/19/24
--- OUTSIDE RECORDS SUMMARY | 2024-11-11 11:05 | XMS_ITS | Clinical Summary ---
Author Organization [facility] Address [address] [place] [address] Care Team Providers Care Msws Name Role Phone Lucy Augustine APRN C.N.P. Primary Care Provide r Source Comments Patient records contain information from all sites at [facility]. For routine questions regarding patient records, call [phone] during business hours, M-F 8:00 AM - 5:00 PM Central Time. Record requests for emergency care only can be directed to [phone] at any time.[facility] Allergies Active Allergy Reactions Criticality Noted Date [...] (06/23/2020): Added automatically from request for surgery [id number] Encephalitis And Encephalomy elitis Unspecified 05/18/2020 10/20/2023 Rhabdomyolysis 05/16/2020 06/01/2020 Encephalopathy Toxic 05/15/2020 020 Encounters * This document contains information received from the source organization and may not represent a complete record from that organization. Date Type Department Care Team Description 09/20/2024 3:30 PM COUNSELING CENTER MANAGER Telemedicine Department of Family Medicine in [place], [place] [address] [place] [address] Meri Burgess APRN, C.N.P. 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 Appt Request 09/10/2024 Refill Department of Neurology in [address] [address] Albnio Vargas M.B., Ch.B. Med Refill 08/12/2024 11:30 AM COUNSELING CENTER MANAGER Office Visit Department of Family Medicine in [place], [place] [address] [place] [phone] Lucy Augustine APRN, C.N.P. Screening For Venereal [...] Grandmother Hypertension Mother Meaghan foot spur Mother Emaghan Relation Name Status Comments Father Alive Maternal Grandmother Mother Meaghan Alive Social History Tobacco Use Types Packs/Day Years Used Date Smoking Tobacco: Former Cigarettes Q uit: 06/24/2020 Passive Smoke Exposure: Past Smokeless Tobacco: Never Tobacco Cessation:Counseling Given: Not Answered Alcohol Use Standard Drinks/Week Comments Not Currently 0 (1 standard drink = 0.6 oz pur e alcohol) last used 03/08 [facility] Utilities Answer Date Recorded In the past [...] How often do you attend chur or tenriism services? Never 12/05/2022 Do you belong to any clubs o r organizations such as episcopalian groups, unions, fraternal or athletic groups, or [...] Answer Date Recorded PHQ-2 Score 6 09/20/2024 [facility] - Occupational Stress Questionnaire Answer Date Recorded [...] AM CDT Legal Sex Male 10:06 PM COUNSELING CENTER MANAGER Gender Identity Male 06/03/2020 8:27 AM CDT Sexual Orientation Lesbian or Singh 06/03/2020 8: 27 AM CDT Last Filed Vital Signs Vital Sign Reading Time Taken Comments Blood Pressure 122/76 08/12/2024 11:18 AM COUNSELING CENTER MANAGER Pulse 75 08/12/2024 11:18 AM COUNSELING CENTER MANAGER Temperature 36 C (96.8 F) 08/12/2024 11:18 AM COUNSELING CENTER MANAGER Respiratory Rate 29 04/10/2024 12:15 AM CDT Oxygen Saturation 96% 08/12/2024 11:18 AM COUNSELING CENTER MANAGER Inhaled Oxygen Concentration - - Weight 110 kg (241 lb 11.2 oz) 08/12/2024 11:18 AM COUNSELING CENTER MANAGER Height 177.8 cm (5' 10) 04/09/2024 9:18 PM CDT Body Mass Index 34.68 04/09/2024 9:18 PM CDT Plan of Treatment Upcoming Encounters Date Type Department Care Team (Late st Contact Info) Description 11/19/2024 8:00 AM COUNSELING CENTER MANAGER Telemedicine Department of Neurology in [address] [address] Albino Vargas M.B., Ch.B. [address] [place] [address] Discharge Disposition: Home or Self [...] AB SCREEN, PLASMA Routine 08/12/2024 11:37 AM COUNSELING CENTER MANAGER Screening For Venereal Disease RPR SCREEN W/ REFLEX TO TITER, S Routine 08/12/2024 11:37 AM COUNSELING CENTER MANAGER Screening For Venereal Disease HCV AB SCRN W/REFLEX TO HCV PCR, S Routine 08/12/2024 11:37 AM COUNSELING CENTER MANAGER Screening For Venereal Disease BASIC METABOLIC PANEL, S/P STAT 04/09/2024 10:31 PM CDT from Last 3 Months or Most Recently Relevant to Health Maintenance Results * RPR Screen w/ Reflex to Titer, Serum (08/12/2024 11:37 AM COUNSELING CENTER MANAGER) RPR Screen w/ Reflex to Titer,S Negative Negative 08/13/2024 9:50 AM COUNSELING CENTER MANAGER [facility] Comment: Lipemic Non-treponemal antibodies not detected. For additional information on interpretation of the syphilis reverse algorithm and results, see: [email or web address] Blood (Blood, Venous) 08/12/2024 11:37 AM COUNSELING CENTER MANAGER 08/13/2024 7:16 AM COUNSELING CENTER MANAGER Lucy Augustine APRN C.N.P. LAB MICROBIOLOGY - BL OOD ORDERABLES Final Result [facility] [address] [place] [address] [facility] [address] [place] [address] * HIV-1/-2 Ag and Ab Screen, Plasma (08/12/2024 11:37 AM COUNSELING CENTER MANAGER) [facility] HIV Ag/Ab Screen, P Negative Negative 08/13/2024 10:38 AM COUNSELING CENTER MANAGER [facility] Comment: Negative result does not rule out HIV infection. If exposure to HIV infection occurred <14 days ago, contact the laboratory to request addition of HIV-1/HIV-2 RNA detection, Plasma (HIP12). HIV-1 p24 Ag Screen, P Negative Negative 08/13/2024 10:38 AM COUNSELING CENTER MANAGER [facility] Comment: Negative result does not rule out HIV infection. If exposure to HIV infection occurred <14 days ago, contact the laboratory to request addition of HIV-1/HIV-2 RNA detection, Plasma (HIP12). HIV-1 Ab Screen, P Negative Negative 08/13/2024 10:38 AM COUNSELING CENTER MANAGER [facility] Comment: Negative result does not rule out HIV infection. If exposure to HIV infection occurred <14 days ago, contact the laboratory to request addition of HIV-1/HIV-2 RNA detection, Plasma (HIP12). HIV-2 Ab Screen, P Negative Negative 08/13/2024 10:38 AM COUNSELING CENTER MANAGER [facility] Comment: Negative result does not rule out HIV infection. If exposure to HIV infection occurred <14 days ago, contact the laboratory to request addition of HIV-1/HIV-2 RNA detection, Plasma (HIP12). Blood (Blood, Venous) 08/12/2024 11:37 AM COUNSELING CENTER MANAGER 08/12/2024 6:36 PM COUNSELING CENTER MANAGER us Lucy Augustine APRN, C.N.P. LAB MICROBIOLOGY - BL OOD ORDERABLES Final Result Performing Organization Address [facility] [address]/ZIP Co de Phone Number [facility] [address] [place] [address], [facility] in [address] [address] * HCV Ab Scrn w/Reflex to HCV PCR, Serum (08/12/2024 11:37 AM COUNSELING CENTER MANAGER) HCV Ab Screen, S Negative Negative 08/12/2024 5:04 PM COUNSELING CENTER MANAGER [facility] Blood (Blood, Venous) 08/12/2024 11:37 AM COUNSELING CENTER MANAGER 08/12/2024 4:32 PM COUNSELING CENTER MANAGER Narrative [facility] - 08/12/2024 5:04 PM COUNSELING CENTER MANAGER Specimen Information: Specimen ID: [id number] Specimen Type: Blood Specimen Collection Start Date: 08/12/2024 11:37 AM Specimen Received Date: 08/12/2024 4:32 PM Specimen ID: [id number] Specimen Type: Blood Specimen Collection Start Date: 08/12/2024 11:37 AM Specimen Received Date: 08/12/2024 4:29 PM us Lucy Augustine APRN, C.N.P. LAB MICROBIOLOGY - BL OOD ORDERABLES Final Result [facility] [address] [place] [address], [place] [facility] in [place] [address] [place] [address] * Basic Metabolic Panel (04/09/2024 10:31 PM [...] M.D. LAB BLOOD ADD-ON Final Res ult [facility] [place] [address], [facility] [place] [address] from Last 3 Months or Most Recently Relevant to Health Maintenance Insurance [facility] [place] [id number] Advance Directives For more information, please contact: [phone] * Full Code (Latest Code Status on [...] Due to: Patient does not have the [facility] Care Teams Msws Relationship Specialty Start Date End Date Lucy Augustine APRN, C.N.P. [address] [facility] [place] [address] PCP - General Family Medicine 03/14/22
--- OUTSIDE RECORDS SUMMARY | 2024-11-11 11:05 | XMS_ITS | Clinical Summary ---
Author Organization [facility] Replaced By [facility] Address [address] [address] Phone Care Team Providers Care Health Advisor Name Role Phone Choice, No Pcp-Patient Primary Care Provider Sharonda vailable Allergies Active Allergy Reactions Criticality Noted Date Comments Baclofen RASH Medium 07/02/2021 Medications VENLAFAXINE HCL OR Take 300 mg by mouth one time a day. Active lamoTRIgine (LaMICtal XR) 200 MG XR tablet Take 400 mg by mouth one time a day. 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 Generalized anxiety disorder 01/02/2016 Moderate episode of recurrent major depressive d isorder 01/02/2016 Social History Tobacco Use Types Packs/Day Years Used Date Smoking Tobacco: Never Assessed Sex and Gender Information Value Date Recorded Sex Assigned at Not on file Legal Sex Male 4:39 PM CDT Gender Identity Not on file Sexual Orientation Not on file Last Filed Vital Signs Vital Sign Reading Time Taken Comments Blood Pressure 140/85 11/28/2022 8:45 PM CURATOR HERBARIUM Pulse 89 11/28/2022 8:45 PM CURATOR HERBARIUM Temperature 37.1 C (98.8 F) 11/28/2022 6:56 PM CURATOR HERBARIUM Respiratory Rate 11 11/28/2022 8:45 PM CURATOR HERBARIUM Oxygen Saturation 97% 11/28/2022 8:45 PM CURATOR HERBARIUM Inhaled Oxygen Concentration - - Weight 81.6 kg (180 lb) 11/25/2022 10:35 PM CURATOR HERBARIUM Height 177.8 cm (5' 10) 11/25/2022 10:35 PM CURATOR HERBARIUM Body Mass Index 25.83 11/25/2022 10:35 PM CURATOR HERBARIUM Plan of Treatment Health Maintenance Due Date Last Done Comments Hepatitis B Vaccine (Standin g Order) (1 of 3 - 19+ 3-dose series) 12/17/2015 PERTUSSIS (Standing Order) 12/17/2015 TETANUS (Standing Order) 12/17/2015 COVID-19 Vaccine ( - 2023-2 5 season) 2024 Influenza Vaccine Seasonal (Standing Order) (#1) 2024 HPV Vaccine (Standing Order) Aged Out No longer eligible based on patient's age to complete this topic Pneumococcal/PCV20 Vaccine: Pediatrics (2-5 yrs) and At-Risk Patients (6-49 yrs) (Standing Order) Aged Out No longer eligible b ased on patient's age to complete this topic Insurance Care Teams Health Advisor Relationship Specialty Start Date End Date Choice, No Pcp-Patient PCP - General 11/25/22
--- OUTSIDE RECORDS SUMMARY | 2024-11-11 11:05 | XMS_ITS | Clinical Summary ---
Author Organization [facility] Address [address] [place] [address] Care Team Providers Care Elevator Runner Name Role Phone Rodney Pearson MD Primary Care Provider [phone] Allergies Active Allergy Reactions Criticality Noted Date [...] Comments Blood Pressure 132/88 08/02/2022 9:52 AM MARKETING SENIOR RECRUITER Pulse 88 08/02/2022 9:40 AM MARKETING SENIOR RECRUITER Temperature 36.4 C (97.5 F) 08/02/2022 9:40 AM MARKETING SENIOR RECRUITER Respiratory Rate - - Oxygen Saturation 99% 08/02/2022 9:40 AM MARKETING SENIOR RECRUITER Inhaled Oxygen Concentration - - Weight 88.5 kg (195 lb) 08/02/2022 9:40 AM MARKETING SENIOR RECRUITER Height 177.8 cm (5' 10) 08/02/2022 9:40 AM MARKETING SENIOR RECRUITER Body Mass Index 27.98 08/02/2022 9:40 AM MARKETING SENIOR RECRUITER Plan of Treatment Health Maintenance Due Date Last Done Comments Hepatitis C Screening 1996 Anxiety Follow-Up (FOREIGN-7) 1997 Depression Follow-Up (PHQ-9) 1997 HPV Vaccine (2 - Male 3-dose series) 08/30/202207/23 COVID-19 Vaccine (4 - 2023- season) 2024 07/26/2021, 10/26/2020, 10/05/2020 Influenza Vaccine (#1) 2024 , 06/02/2019, 07/16/2012 Adult Tetanus Booster 03/04/2032 03/04/2022, 009 RSV Vaccines (1 - 1-dose 75+ series) 12/17/2071 Pneumococcal Vaccine Completed 08/02/2022 Care Teams Elevator Runner Relationship Specialty Start Date End Date Rodney Pearson MD [address] [facility] [address] [place] [address] PCP - General Family Medicine - 07/25/22
--- OUTSIDE RECORDS SUMMARY | 2024-11-11 11:06 | XMS_ITS | Encounter Summary ---
Author Organization [facility] Address [address] [place] [address] Care Team Providers Care Bindery Machine Operator Name Role Phone AugustineLucy APRN, C.N.P. Primary Care Provide r Reason for Visit * Reason Onset Date Comments Appt Request 09/17/2024 Encounter Details Date Type Department Care Team (Late st Contact Info) Description 09/17/2024 Clinical Communication Department of Family Medicine in [place], [place] [address] [place] [address] Karen Alvarez APRN, C.N.P., M.S.N. [address] [place] [id number] Appt Request Social History Tobacco Use Types Packs/Day Years Used Date Smoking Tobacco: Former Cigarettes Q uit: 06/24/2020 Passive Smoke Exposure: Past Smokeless Tobacco: Never Alcohol Use Standard Drinks/Week Comments Not Currently 0 (1 standard drink = 0.6 oz pur e alcohol) last used 03/08 [facility] Utilities Answer Date Recorded In the [...] How often do you attend chur or catholic services? Never 12/05/2022 Do you belong to any clubs o r organizations such as hindu groups, unions, fraternal or athletic groups, or [...] Answer Date Recorded PHQ-2 Score 6 09/20/2024 [facility] [place] of Occupat ional Health - Occupational Stress [...] your living situation today? I have a [facility] place to live 06/08/2024 Education Answer Date Recorded What is the highest level of school you have completed or the highest degree you have received? 12th grade 03/30/2020 Sex and Gender Information Value Date Recorded Sex Assigned at Male 07/01/2021 9:57 AM CDT Legal Sex Male 10:06 PM VACATION PLANNER Gender Identity Male 06/03/2020 8:27 AM CDT Sexual Orientation Lesbian or Singh 06/03/2020 8: 27 AM CDT documented as of this encounter Plan of Treatment Upcoming Encounters Date Type Department Care Team (Late st Contact Info) Description 11/19/2024 8:00 AM VACATION PLANNER Telemedicine Department of Neurology in [place], [place] [address] [place] [address] Albino Vargas M.B., Ch.B. [address] [place] [address] Discharge Disposition: Home or Self Care documented as of this encounter Visit Diagnoses Not on filedocumented in this encounter Additional Health Concerns Assessment Noted Time PHQ-9 Depression Total Score: 27 024 7:17 PM VACATION PLANNER documented as of this encounter Care Teams Bindery Machine Operator Relationship Specialty Start Date End Date Lucy Augustine APRN, C.N.P. [address] [place] [id number] PCP - General Family Medicine 03/14/22 documented as of this encounter
--- NOTE | 2024-11-11 11:44 | ED.GENADULT ---
HPI - General Adult General Date Seen: 11/11/24 Chief complaint: Fall/Minor Trauma Stated complaint: fall History of Present Illness HPI narrative: Patient is a 28-year-old male with a history of autoimmune encephalitis who presents by ambulance for evaluation of neck and back pain after a fall several days ago. He says he was moving some things up the stairs and fell backward down the stairs. Since that time he has developed episodic pain in his neck and low back. He has been taking ibuprofen but says it does not help very much. He went to urgent care yesterday, he says they told him they could not do anything for him and they recommended that he come to the ER. He waited until this morning and then decided to come in by ambulance. He does not have any neurologic complaints, no fevers or unexpected weight loss, no radiating pain. He says that he has been sleeping restlessly because sometimes his neck hurts and sometimes his low back hurts. Pain is worse with movement. No head trauma no loss of consciousness. Related Data Home Medications ?Medication ?Instructions ?Recorded ?Confirmed desvenlafaxine PO 11/10/24 11/10/24 fluoxetine 40 mg capsule 40 mg PO QAM 11/10/24 11/11/24 hydroxyzine HCl PO 11/10/24 11/10/24 lamotrigine 200 mg tablet 400 mg PO QDAY 11/10/24 11/11/24 Depakote 11/11/24 Valium 11/11/24 Allergies Allergy/AdvReac Type Severity Reaction Status Date / Time baclofen Allergy Mild itchy Verified 11/11/24 09:13 Review of Systems Status of ROS: Reports: 6 or more systems reviewed and unremarkable except as noted in History and below [facility] Social History Smoking Status: Never smoker Do you use any of these nicotine containing products: None How often do you have a drink containing alcohol: never How often do you have six or more drinks on one occasion: Never AUDIT-C Alcohol total score: 0 Non-prescribed substance use: denies use Exam Narrative: Exam Narrative: Vital signs reviewed In general, alert, nontoxic young man. Head: Normocephalic, atraumatic. Eyes: Sclera clear. Pupils equal and reactive. ENT: Mucous membranes moist. Neck: Supple without adenopathy. Diffuse tenderness of the cervical musculature, no significant midline tenderness. Heart: Regular rate and rhythm without murmur. Lungs: Clear. No increased work of breathing, crackles or wheezes. Abdomen: Soft, nontender to palpation. Back: He has diffuse primarily muscular tenderness of lumbar region. There is no visible deformity, bruising, step-offs. Extremities: Well perfused, pulses intact. No significant edema. Neurologic: Alert, conversant. Speech fluent, face symmetric. Moves all extremities equally. Skin: Warm, dry well perfused. Affect: Normal. Const: Vital Signs, click to edit/add: Vital Signs - 24 hr 11/11/24 09:09 Temperature 98.9 F Pulse Rate [Pulse Oximeter] 62 Respiratory Rate 16 Blood Pressure [Ri ght Upper Arm] 118/76 Pulse Oximetry 98 Oxygen Delivery Me thod Room Air Course Course ED Course: I ordered CT scans of the cervical spine and lumbar spine. I gave him IM Toradol, he said that did not help at all, he says he has had Toradol before and it never works for him. CT scans are read by Radiology, reports reviewed by myself as negative for any acute bony pathology or other findings. I gave him an oxycodone here, recommended use of ibuprofen and muscle relaxers at home but he requested additional oxycodone instead. Review of [employer] [employer] shows no prescriptions in the past year, so I did agree to give him a small number. With injuries being several days ago and no evidence of any bony injury or neurologic complaints, would expect this will improve over the next few days. Ice or heat recommended, he may find physical therapy, chiropractic and or massage helpful as well. Primary care follow-up in the next week if not gradually improving. Return any time for acute worsening symptoms. Given oxycodone, 8 tablets from [facility]. Vital Signs Vital signs: Initial Vital Signs Temperature 98.9 F 11/11/24 09:09 Temperature Source Temporal Artery Scan 11/11/24 09:09 Pulse Rate 62 11/11/24 09:09 Respiratory Rate 16 11/11/24 09:09 Blood Pressure 118/76 11/11/24 09:09 Blood Pressure Mean 90 11/11/24 09:09 Blood Pressure Position Supine 11/11/24 09:09 Pulse Oximetry 98 11/11/24 09:09 Oxygen Delivery Method Room Air 11/11/24 09:09 Vital Signs Temperature 98.9 F 11/11/24 09:09 Pulse Rate 62 11/11/24 09:09 Respiratory Rate 16 11/11/24 09:09 Blood Pressure 118/76 11/11/24 09:09 Pulse Oximetry 98 11/11/24 09:09 Oxygen Delivery Method Room Air 11/11/24 09:09 Temperature 98.9 F 11/11/24 09:09 Pulse Rate 62 11/11/24 09:09 Respiratory Rate 16 11/11/24 09:09 Blood Pressure 118/76 11/11/24 09:09 Pulse Oximetry 98 11/11/24 09:09 Oxygen Delivery Method Room Air 11/11/24 09:09 Medications Administered Medications: Discontinued Medications Generic Name Dose Route Start Last Admin Trade Name Freq PRN Reason Stop Dose Admin Ketorolac Tromethamine 30 mg 11/11/24 09:32 11/11/24 09:40 Ketorolac 30 Mg/Ml Inj IM 11/11/24 09:33 30 mg ONCE ONE Administration Oxycodone HCl 5 mg 11/11/24 10:35 11/11/24 10:54 Oxycodone 5 Mg Tablet PO 11/11/24 10:36 5 mg ONCE ONE Administration Medical Decision Making Imaging Data Lumbar CT: Attestation: I have reviewed the pertinent imaging results. Radiologist's impression: Patient: Raheem Nunes MR#: [id number] : 1995 Acct:[id number] Loc: ED Service Date: 11/11/[address]: Ordering Physician: Silva Serrano M.D. Date of Service: 11/11/24 Procedure(s): CT lumbar spine wo con Accession Number(s): [id number] cc: Silva Serrano M.D.; Provider,Not a Local~ For Patients: As a result of the Cures Act, medical imaging exams and procedure reports are released immediately into your electronic medical record. You may view this report before your referring provider. If you have questions, please contact your health care provider. INDICATION: PATIENT FELL BACKWARDS DOWN 8 STAIRS 2 DAYS AGO COMPARISON: None TECHNIQUE: CT of the cervical spine without contrast FINDINGS: There are 5 lumbar vertebral bodies. No acute fracture or malalignment. Normal lumbar lordosis is maintained. No listhesis. Vertebral body heights and intervertebral disc spaces are maintained. No spondylitic changes of the lumbar spine. No spinal canal or neuroforaminal stenosis. No suspicious osseous lesions. The soft tissues are unremarkable. IMPRESSION: Unremarkable lumbar spine CT with no fracture or malalignment. Please note that all CT scans at this facility use dose modulation, iterative reconstruction, and/or weight-based dosing when appropriate to reduce radiation dose to as low as reasonably achievable. Dictated by Zander Jon MD @ 11/11/2024 10:28:[address]: Attestation: I have reviewed the pertinent imaging results. Radiologist's impression: Patient: Raheem Nunes MR#: [id number] : 1995 Acct:[id number] Loc: ED Service Date: 11/11/[address]: Ordering Physician: Silva Serrano M.D. Date of Service: 11/11/24 Procedure(s): CT cervical spine wo con Accession Number(s): [id number] cc: Silva Serrano M.D.; Provider,Not a Local~ For Patients: As a result of the Cures Act, medical imaging exams and procedure reports are released immediately into your electronic medical record. You may view this report before your referring provider. If you have questions, please contact your health care provider. INDICATION: PATIENT FELL BACKWARDS DOWN 8 STAIRS 2 DAYS AGO COMPARISON: None TECHNIQUE: CT of the cervical spine without contrast FINDINGS: No acute fracture or malalignment. Mild straightening of the normal cervical lordosis, likely positional. No listhesis. Vertebral body heights and intervertebral disc spaces are maintained. No spondylitic changes of the cervical spine. No spinal canal or neuroforaminal stenosis. No suspicious osseous lesions. The soft tissues are unremarkable. IMPRESSION: Unremarkable cervical spine CT with no fracture or malalignment. Please note that all CT scans at this facility use dose modulation, iterative reconstruction, and/or weight-based dosing when appropriate to reduce radiation dose to as low as reasonably achievable. Dictated by Zander Jon MD @ 11/11/2024 10:23:59 AM Discharge Plan Discharge Clinical Impression: Neck pain, Low back pain Instructions: Acute Low Back Pain (ED), Acute Neck Pain (ED) Additional Instructions: Continue to use ibuprofen and/or Tylenol as needed. I have given you a small number of oxycodone to use over the next day or 2. You can use ice and/or heat. Some people find chiropractic, massage and/or physical therapy helpful if her symptoms are not improving. See primary care as needed if not making improvement over the next week. Prescriptions: No Action desvenlafaxine PO fluoxetine 40 mg capsule 40 mg PO QAM lamotrigine 200 mg tablet 400 mg PO QDAY hydroxyzine HCl PO Valium Depakote Follow Up/Referrals: Provider,Not a Local [Non-Staff] -
== END 2024-11-11 11:05 | disposition home or self-care (01) ==
PROVIDERS: Emergency Provider Emergency Medicine; PCP Family Medicine
DX: M54.50 Low back pain, unspecified (principal); M54.2 Cervicalgia
CPT/HCPCS: 72125; 72131; 96372; 99284; A9270; J1885

== ENCOUNTER 2024-11-22 12:03 | Emergency (ER) | payer MEDICARE, MEDICAID, SELFPAY ==
[2024-11-22 12:35] VITALS: BP 115/73; PULSE 93; RESP 18; TEMP 38; O2SAT 94; BMI 31.6
--- NOTE | 2024-11-22 13:32 | ED.GENADULT ---
HPI - General Adult General Time Seen by Provider: 13:33 Date Seen: 11/22/24 Chief complaint: Back Injury/Pain Stated complaint: Fall, coccyx and back pain Time Seen by Provider: 11/22/24 13:32 Source: patient and RN notes reviewed Mode of arrival: ambulatory Limitations: no limitations History of Present Illness HPI narrative: This 28-year-old male is ambulatory into the ED of his own accord with complaint of coccyx pain. He slipped on wet floor that he was mopping. He fell onto his buttocks. He hurts in his buttocks/coccyx. He denies any pain going down his legs. It hurts in the coccyx area and feels the pain going up in his back. He was in the ER just a few weeks ago, had cervical spine and lumbar CT imaging from a fall. Patient has underlying seizure disorder from history of autoimmune encephalitis in his 20s. He states there was no seizure today, slipped on a wet floor. Patient states he has not been sick, his temperature on arrival was mildly elevated but he states he is just in pain. He has not been sick with anything, does not feel achy, no cough or cold symptoms. Related Data Home Medications ?Medication ?Instructions ?Recorded ?Confirmed desvenlafaxine 25 mg PO DAILY 11/10/24 11/22/24 fluoxetine 40 mg capsule 60 mg PO QAM 11/10/24 11/22/24 hydroxyzine HCl PO PRN 11/10/24 11/10/24 lamotrigine 200 mg tablet 400 mg PO QDAY 11/10/24 11/22/24 Depakote 1,000 mg PO BID 11/11/24 11/22/24 Valium 10 mg PO BID PRN 11/11/24 11/22/24 diazepam 5 mg tablet mg DAILY 11/22/24 divalproex 500 mg tablet,extended 1,000 mg PO QPM seizures 11/22/24 11/22/24 release 24 hr Previous Rx's ?Medication ?Instructions ?Recorded ibuprofen 600 mg tablet 600 mg PO Q6H PRN #30 tabs 11/22/24 Allergies Allergy/AdvReac Type Severity Reaction Status Date / Time baclofen Allergy Mild itchy Verified 11/22/24 12:40 Review of Systems Narrative: As per HPI. PFSH PFSH Social History Smoking Status: Never smoker Do you use any of these nicotine containing products: Vaping Products How often do you have a drink containing alcohol: never How often do you have six or more drinks on one occasion: Never AUDIT-C Alcohol total score: 0 Non-prescribed substance use: marijuana (any form) Exam Const: Vital Signs, click to edit/add: Vital Signs - 24 hr 11/22/24 12:35 11/22/24 13:41 11/22/24 15:02 Temperature 100.4 F H 99.2 F 98.7 F Pulse Rate [Pulse Oximeter] 93 81 Respiratory Rate 18 18 Blood Pressure [Le ft Upper Arm] 115/73 105/73 Pulse Oximetry 94 98 Oxygen Delivery Me thod Room Air Room Air This 28-year-old male is sitting in exam room for, has ice pack underneath his gluteal area. He is soft-spoken but alert, interactive, no apparent distress. He ambulated into the ED of his own accord. There is no midline tenderness over his lumbar spine, no traumatic change noted. He is tender when I palpate lower along the lower sacrum / coccyx area. he has no pain on palpation of the greater trochanter areas on either side. Again, ambulated into the ED of his own accord. Documenting provider has reviewed patient's vital signs: yes Course Course ED Course: Patient feels he is fine to await for imaging. Discussed plain imaging with this mechanism. Certainly would not want to do CTs unless absolutely indicated. He just had 2 CTs a couple of weeks ago, cannot believe that he would not have had CT imaging at some point with his history. He is quite young and do not want to maximize radiation in this patient. Thus, given his mechanism, do feel that Reevaluation(s) Time of Reevaluation #1: 15:32 Reevaluation #1: Provided patient copy of his x-ray reports. Thankfully there are no fractures seen. He had requested pain management, in lieu of negative imaging for fractures did discuss with him that I do not do narcotics. When he was here last time, did tell the physician Toradol did not help him. I did offer him injectable Toradol but he declined. He states he does not have Tylenol or ibuprofen at home. Did discuss with him that I could send in prescription strength ibuprofen which she would appreciate. Will give a dose of Tylenol here prior to discharge. Nursing staff did have social service technician come down to see him, patient is new to area and did discuss that he was having difficulty getting laundry done and problems with some of his ADLs. Monika from social service technician came down, patient is feeling safe to go home per her report. He does have a psychiatrist. Nursing staff alluded to the patient getting prescription narcotics that initially went to [facility] last time, this was canceled because he wanted them to go to the pharmacy. He did shrimp picker the pharmacy prescription and then proceeded to call and come back the next day trying to get the [facility] prescription as well. In any event, I did review with the patient that given there is no fracture and this is likely just musculoskeletal in nature, I do not use narcotics in this situation. Vital Signs Vital signs: Initial Vital Signs Temperature 100.4 F H 11/22/24 12:35 Temperature Source Temporal Artery Scan 11/22/24 12:35 Pulse Rate 93 11/22/24 12:35 Respiratory Rate 18 11/22/24 12:35 Blood Pressure 115/73 11/22/24 12:35 Blood Pressure Mean 87 11/22/24 12:35 Blood Pressure Position Sitting 11/22/24 12:35 Pulse Oximetry 94 11/22/24 12:35 Oxygen Delivery Method Room Air 11/22/24 12:35 Vital Signs Temperature 100.4 F H 11/22/24 12:35 Pulse Rate 93 11/22/24 12:35 Respiratory Rate 18 11/22/24 12:35 Blood Pressure 115/73 11/22/24 12:35 Pulse Oximetry 94 11/22/24 12:35 Oxygen Delivery Method Room Air 11/22/24 12:35 Temperature 98.7 F 11/22/24 15:02 Pulse Rate 81 11/22/24 15:02 Respiratory Rate 18 11/22/24 15:02 Blood Pressure 105/73 11/22/24 15:02 Pulse Oximetry 98 11/22/24 15:02 Oxygen Delivery Method Room Air 11/22/24 15:02 Medical Decision Making Imaging Data XR pelvis: Attestation: I have reviewed the pertinent imaging results. My impression: Pelvic imaging looks negative to me. Radiologist's impression: Patient: KAVYA HERNANDEZ Facility:[facility] Patient ID:?[id number] Site Patient ID:?[id number]. Site :?1995 Study:?XRay-Pelvis 1view-11/22/2024 2:38:47 PM Ordering Physician:Cameron Salmeron Final Report: INDICATION: Fall, injury TECHNIQUE: Single view pelvis COMPARISONS: None available. FINDINGS: Femoral heads are well-seated in the acetabula. There is no displaced fracture, dislocation or acute osseous abnormality. There is no significant degenerative change. The soft tissues are unremarkable. IMPRESSION: No acute osseous abnormality. Dictated by Sonny George MD @ 11/22/2024 2:59:00 PM (Electronic Signature) XR coccyx: Attestation: I have reviewed the pertinent imaging results. Radiologist's impression: Patient: KAVYA HERNANDEZ Facility:?[facility] Patient ID:?[id number] Site Patient ID:?[id number]. Site :?1995 Study:?XRay-Pelvis (Bony) sacrum/coccyx-11/22/2024 2:40:22 PM Ordering Physician:?René Salmeron Final Report: Indication: Fall and inconvenience Comparison: None available. Technique: AP and lateral views sacrum and coccyx were obtained. Findings: There is no displaced fracture or dislocation. The joint spaces are grossly preserved. The soft tissues are unremarkable. Impression: No acute osseus abnormality. Dictated by Sonny George MD @ 11/22/2024 3:01:52 PM (Electronic Signature) Discharge Plan Discharge Clinical Impression: Contusion, buttock Qualifiers: Encounter type: initial encounter Qualified Code(s): S30.0XXA - Contusion of lower back and pelvis, initial encounter Patient Disposition: Home, Self-Care Condition: Stable Instructions: Contusion in Adults (ED) Additional Instructions: Can use pillows or obtain question from the drugstore to sit on. May take a few weeks to feel better. Can use Tylenol 1000 mg 3 times a day, use supplemental ibuprofen as needed. Can continue with ice. Activity Level: Activity as Tolerated Prescriptions: New ibuprofen 600 mg tablet 600 mg PO Q6H PRNQty: 30 0RF No Action desvenlafaxine 25 mg PO DAILY Patient Comments: tapering off fluoxetine 40 mg capsule 60 mg PO QAM lamotrigine 200 mg tablet 400 mg PO QDAY hydroxyzine HCl PO PRN Valium 10 mg PO BID PRN Depakote 1,000 mg PO BID divalproex 500 mg tablet extended release 24 hr 1,000 mg PO QPM diazepam 5 mg tablet DAILY Follow Up/Referrals: Vannessa Alas DO [Primary Care Provider] - Stand Alone Forms: [facility] Info Instructions
[2024-11-22 13:41] VITALS: TEMP 37.3
--- OUTSIDE RECORDS SUMMARY | 2024-11-22 13:51 | XMS_ITS | Referral Summary ---
Author Organization [facility] Address [address] [place] [address] Care Team Providers Care Recruiter Coordinator Name Role Phone Rodney Pearson MD Primary Care Provider Allergies Active Allergy Reactions Criticality Noted Date [...] Comments Blood Pressure 132/88 08/02/2022 9:52 AM BANK NOTE DESIGNER Pulse 88 08/02/2022 9:40 AM BANK NOTE DESIGNER Temperature 36.4 C (97.5 F) 08/02/2022 9:40 AM BANK NOTE DESIGNER Respiratory Rate - - Oxygen Saturation 99% 08/02/2022 9:40 AM BANK NOTE DESIGNER Inhaled Oxygen Concentration - - Weight 88.5 kg (195 lb) 08/02/2022 9:40 AM BANK NOTE DESIGNER Height 177.8 cm (5' 10) 08/02/2022 9:40 AM BANK NOTE DESIGNER Body Mass Index 27.98 08/02/2022 9:40 AM BANK NOTE DESIGNER Plan of Treatment Not on file Care Teams Recruiter Coordinator Relationship Specialty Start Date End Date Rodney Pearson MD [address] [facility] [address] [place] [address] PCP - General Family Medicine - 07/25/22
--- OUTSIDE RECORDS SUMMARY | 2024-11-22 13:51 | XMS_ITS | Clinical Summary ---
Author Organization [facility] Address [address] [place] [address] Care Team Providers Care Drop Forger Helper Name Role Phone Rodney Pearson MD Primary Care Provider [phone] Allergies Active Allergy Reactions Criticality Noted Date [...] Comments Blood Pressure 132/88 08/02/2022 9:52 AM ASSISTANT MEN'S SOCCER COACH Pulse 88 08/02/2022 9:40 AM ASSISTANT MEN'S SOCCER COACH Temperature 36.4 C (97.5 F) 08/02/2022 9:40 AM ASSISTANT MEN'S SOCCER COACH Respiratory Rate - - Oxygen Saturation 99% 08/02/2022 9:40 AM ASSISTANT MEN'S SOCCER COACH Inhaled Oxygen Concentration - - Weight 88.5 kg (195 lb) 08/02/2022 9:40 AM ASSISTANT MEN'S SOCCER COACH Height 177.8 cm (5' 10) 08/02/2022 9:40 AM ASSISTANT MEN'S SOCCER COACH Body Mass Index 27.98 08/02/2022 9:40 AM ASSISTANT MEN'S SOCCER COACH Plan of Treatment Health Maintenance Due Date [...] 12/17/2071 Pneumococcal Vaccine Completed 08/02/2022 Care Teams Drop Forger Helper Relationship Specialty Start Date End Date Rodney Pearson MD [address] [facility] [address] [place] [address] PCP - General Family Medicine - 07/25/22
--- OUTSIDE RECORDS SUMMARY | 2024-11-22 13:51 | XMS_ITS | Clinical Summary ---
Author Organization [facility] Address [address] [place] [address] Care Team Providers Care Slat Basket Top Maker Name Role Phone Lucy Augustine MEGHAN Primary Care Provider [phone] Allergies No known active allergies Social History [...] topic HIV SCREENING Completed 12/02/2022, 08/31/2015 Insurance [employer] Care Teams Slat Basket Top Maker Relationship Specialty Start Date End Date Lucy Augustine NP [address] [place] [address] PCP - General 05/05/24
--- OUTSIDE RECORDS SUMMARY | 2024-11-22 13:52 | XMS_ITS | Clinical Summary ---
Author Organization [facility] Address [address] [place] [address] Care Team Providers Care Logistics Administrator Name Role Phone Lucy Augustine APRN C.N.P. Primary Care Provide r Source Comments Patient records contain information from all sites at [facility]. For routine questions regarding patient records, call [phone] during business hours, M-F 8:00 AM - 5:00 PM Central Time. Record requests for emergency care only can be directed to [phone] at any time.[facility] Allergies Active Allergy Reactions Criticality Noted Date Comments Baclofen Rash 07/02/2021 Medications * This document contains information received from the source organization and may not represent a complete record from that organization. hydrOXYzine (ATARAX) 50 mg tablet Take 1 tablet (50 mg total) by mouth every 6 (six) hours as needed for anxiety. 30 tablet 1 3 Active acetaminophen (TYLENOL) 500 mg tablet Take 1 tablet (500 mg total) by mouth every 6 (six) hours as needed for pain. 30 tablet 3 Active citalopram (CeleXA) 40 mg tablet Take 1 tablet (40 mg total) by mouth daily with morning meal. 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 30 tablet 4 Active gabapentin (Neurontin) 300 mg capsule Take 1 capsule (300 mg total) by mouth 3 (three) times a day. 90 capsule 4 Active propranoloL (InderaL) 20 mg tablet Take 1 tablet (20 mg total) by mouth 2 (two) times a day as needed (Anxiety). 60 tablet 2 4 Active diazePAM (Valium) 5 mg tablet Take 1 tablet (5 mg total) by mouth daily as needed for anxiety. 30 tablet 4 Active lamoTRIgine ER (LaMICtaL XR) 200 mg 24 hr tablet TAKE 2 TABLETS(400 MG) BY MOUTH DAILY 60 tablet 5 Active divalproex (Depakote) 500 mg EC tablet TAKE 2 TABLETS(100 0 MG) BY MOUTH AT BEDTIME 60 tablet 5 Active divalproex (Depakote) 500 mg EC tablet Take 2 tablets (1,000 mg total) by mouth at bedtime. 60 tablet 4 11/12/19 25 Discontinued lamoTRIgine ER (LaMICtaL XR) 200 mg 24 hr tablet Take 2 tablets (400 mg total) by mouth daily. 60 tablet 4 11/12/19 25 Discontinued Active Problems Problem Noted Date Diagnosed Date [...] (06/23/2020): Added automatically from request for surgery [id number] Encephalitis And Encephalomy elitis Unspecified 05/18/2020 10/20/2023 Rhabdomyolysis 05/16/2020 06/01/2020 Encephalopathy Toxic 05/15/2020 020 Encounters * This document contains information received from the source organization and may not represent a complete record from that organization. Date Type Department Care Team Description 11/12/2024 Refill Department of Family Medicine in [place], [place] [address] [place] [address] Lucy Augustine APRN, C.N.P. Med Refill 11/11/2024 Refill Department of Family Medicine in [place], [place] [address] [place] [address] Meri Burgess APRN, C.N.P. Med Refill 09/20/2024 3:30 PM SECTION LEADER AND MACHINE SETTER Telemedicine Department of Family Medicine in [place], [place] [address] [place] [address] Meri Burgess APRN, C.N.P. 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 Appt Request 09/10/2024 Refill Department of Neurology in [address] [address] Albino Vargas M.B., Ch.B. Med Refill from Last 3 Months Immunizations Immunization Administration [...] Used Date Smoking Tobacco: Every Day Cigarettes 1 9.5 Started: 01/09/2011; Last attempted to quit: 06/24/2020 Hookah Passive Smoke Exposure: Past Smokeless Tobacco: Never Tobacco Cessation:Counseling Given: Not Answered Alcohol Use Standard Drinks/Week Comments Not Currently 0 (1 standard drink = 0.6 oz pur e alcohol) last used 03/08 [facility] Utilities Answer Date Recorded In the past 12 months has [employer], [employer], oil, or water [employer] threatened to shut off services in your [...] week 12/05/2022 How often do you attend [facility] or oriental orthodox services? Never 12/05/2022 Do you belong to any clubs o r organizations such as holiness groups, unions, fraternal or athletic groups, or [...] Answer Date Recorded PHQ-2 Score 6 09/20/2024 [facility] [place] [facility]at [facility] - Occupational Stress Questionnaire Answer Date [...] Answer Date Recorded Employment status Unemployed/not in [employer] paid workforce and NOT seeking employment 06/08/2024 Housing Stability Answer Date Recorded What is your living situation today? I have a [facility] place to live 06/08/2024 Education Answer Date Recorded What is the highest level of school you have completed or the highest degree you have received? 12th grade 03/30/2020 Sex and Gender Information Value Date Recorded Sex Assigned at Male 07/01/2021 9:57 AM CDT Legal Sex Male 10:06 PM SECTION LEADER AND MACHINE SETTER Gender Identity Male 06/03/2020 8:27 AM CDT Sexual Orientation Lesbian or Singh 06/03/2020 8: 27 AM CDT Last Filed Vital Signs Vital Sign Reading Time Taken Comments Blood Pressure 122/76 08/12/2024 11:18 AM SECTION LEADER AND MACHINE SETTER Pulse 75 08/12/2024 11:18 AM SECTION LEADER AND MACHINE SETTER Temperature 36 C (96.8 F) 08/12/2024 11:18 AM SECTION LEADER AND MACHINE SETTER Respiratory Rate 29 04/10/2024 12:15 AM CDT Oxygen Saturation 96% 08/12/2024 11:18 AM SECTION LEADER AND MACHINE SETTER Inhaled Oxygen Concentration - - Weight 110 kg (241 lb 11.2 oz) 08/12/2024 11:18 AM SECTION LEADER AND MACHINE SETTER Height 177.8 cm (5' 10) 04/09/2024 9:18 PM CDT Body Mass Index 34.68 04/09/2024 9:18 PM CDT Plan of Treatment Upcoming Encounters Date Type Department Care Team (Late st Contact Info) Description 11/25/2024 11:00 AM SECTION LEADER AND MACHINE SETTER Comprehensive Visit Department of Family Medicine in [place], [place] [address] [place] [address] Meri Burgess APRN, C.N.P. [address] [place] [phone] 12/24/2024 8:00 AM CDT Telemedicine Department of Neurology in [place], [place] [address] [place] [address] Albino Vargas M.B., Ch.B. [address] [place] [phone] Health Maintenance Due Date Last Done Comments Visit: Chronic Disease, age 18+ 1996 HPV Vaccines (2 - Male 3-dos e series) 08/30/2022 08/02/2022 COVID-19 Vaccine (4 - 2023-2 5 season) 2024 07/26/2021, 10/26/2020, 10/05/2020 Influenza Vaccine (#1) 2024 , 08/02/2022, 08/02/2022, Additional history exists Depression Monitoring (PHQ-9 for quality tracking) 09/22/2024 Depression Monitoring (PHQ-9) 01/19/2025 09/20/2024 Office Visit for Blood Press ure Check / Re-check 08/12/2025 08/12/2024 Tobacco Cessation counseling 11/18/2025 11/18/2024, 02/06/2023 DTaP,Tdap,and Td Vaccines (8 - Td or Tdap) 03/04/2032 03/04/2022, 05/15/2009, 01/20/2002, Additional history exists Hepatitis B Vaccines Completed 04/09/2000, 04/09/2000, 05/03/1997, Additional history exists Hepatitis A Vaccines Completed 07/04/2001, 04/09/20 00 IPV Vaccines Completed 07/04/2001, 06/22, 01/26/1998, Additional history exists Varicella Vaccines Completed 05/15/2009, 01/26/1998 Pneumococcal vaccine (0-49 years) Completed 022 Hepatitis B Screening Completed 12/02/2022, 020 Glucose Test for Med Monitoring Discontinued 05/05/2024, 04/09/2024, 07/31/2023, Additional history exists Procedures Procedure Name Priority Date/Time Associated Diagnosis Comments BASIC METABOLIC PANEL, S/P STAT 04/09/2024 10:31 PM CDT HEPATITIS B SURFACE ANTIGEN Routine 12/02/2022 8:10 PM CDT from Last 3 Months or Most Recently Relevant to Health Maintenance Results * Basic Metabolic Panel (04/09/2024 10:31 PM [...] 10:31 PM CDT 04/09/2024 10:41 PM CDT us Chance Sun M.D. LAB BLOOD ADD-ON Final Res ult [facility] [address] [place] [address], [facility] in [place] [address] [place] [address] * Hepatitis B Surface Antigen (12/02/2022 8:10 PM CDT) HBs Antigen, S Negative Negative 12/03/2022 7:59 AM CDT [facility] Blood (Blood, Venous) 12/02/2022 8:10 PM CDT 12/03/2022 6:57 AM CDT Yvette Carrera M.D., M.S. LAB MICROBIOLOGY - BLOOD ORDERABLES Final Result [facility] [address] [place] [address] [facility] [address] [place] [address] from Last 3 Months or Most Recently Relevant to Health Maintenance Insurance [place] [employer] [facility] MEDIC[facility] Advance Directives For more information, please contact: [phone] * Full Code (Latest Code Status on [...] Due to: Patient does not have the [facility] Care Teams Logistics Administrator Relationship Specialty Start Date End Date Lucy Augustine, JAMES, [place] [address] PCP - General Family Medicine 03/14/22
--- OUTSIDE RECORDS SUMMARY | 2024-11-22 13:52 | XMS_ITS | Encounter Summary ---
Author Organization [facility] Address [address] [place] [address] Care Team Providers Care Admissions Clerk Name Role Phone AugustineLucy APRN, C.N.P. Primary Care Provide r Reason for Visit * Reason Onset Date Comments Appt Request 09/17/2024 Encounter Details Date Type Department Care Team (Late st Contact Info) Description 09/17/2024 Clinical Communication Department of Family Medicine in [place], [place] [address] [place] [address] Karen Alvarez APRN, C.N.P., M.S.N. [address] [place] [phone] Appt Request Social History Tobacco Use Types Packs/Day Years Used Date Smoking Tobacco: Former Cigarettes Q uit: 06/24/2020 Passive Smoke Exposure: Past Smokeless Tobacco: Never Alcohol Use Standard Drinks/Week Comments Not Currently 0 (1 standard drink = 0.6 oz pur e alcohol) last used 03/08 [facility] Utilities Answer Date Recorded In the [...] How often do you attend chur or bahai services? Never 12/05/2022 Do you belong to any clubs o r organizations such as jew groups, unions, fraternal or athletic groups, or [...] Answer Date Recorded PHQ-2 Score 6 09/20/2024 [facility] [place] of Occupat ional Health - Occupational Stress [...] your living situation today? I have a [facility] place to live 06/08/2024 Education Answer Date Recorded What is the highest level of school you have completed or the highest degree you have received? 12th grade 03/30/2020 Sex and Gender Information Value Date Recorded Sex Assigned at Male 07/01/2021 9:57 AM CDT Legal Sex Male 10:06 PM DESIGN PROJECT MANAGER Gender Identity Male 06/03/2020 8:27 AM CDT Sexual Orientation Lesbian or Singh 06/03/2020 8: 27 AM CDT documented as of this encounter Plan of Treatment Upcoming Encounters Date Type Department Care Team (Late st Contact Info) Description 11/25/2024 11:00 AM DESIGN PROJECT MANAGER Comprehensive Visit Department of Family Medicine in [place], [place] [address] [place] [address] Meri Burgess APRN, C.N.P. [address] [place] [phone] 12/24/2024 8:00 AM CDT Telemedicine Department of Neurology in [place], [place] [address] [place] [address] Albino Vargas M.B., Ch.B. [address] [place] [address] documented as of this encounter Visit Diagnoses Not on filedocumented in this encounter Additional Health Concerns Assessment Noted Time PHQ-9 Depression Total Score: 27 024 7:17 PM DESIGN PROJECT MANAGER documented as of this encounter Care Teams Admissions Clerk Relationship Specialty Start Date End Date Lucy Augustine APRN, C.N.P. [address] [place] [phone] PCP - General Family Medicine 03/14/22 documented as of this encounter
--- OUTSIDE RECORDS SUMMARY | 2024-11-22 13:52 | XMS_ITS | Encounter Summary ---
Author Organization [facility] Address [address] [place] [address] Care Team Providers Care Wedding Transportation Driver Name Role Phone Lucy Augustine APRN, C.N.P. Primary Care Provide r Reason for Visit * Reason Comments Med Refill Encounter Details Date Type Department Care Team (Late st Contact Info) Description 11/12/2024 Refill Department of Family Medicine in [place], [place] [address] [place] [phone] Lucy Augustine APRN, C.N.P. [address] [place] [phone] Med Refill Social History Tobacco Use Types Packs/Day Years Used Date Smoking Tobacco: Former Cigarettes Q uit: 06/24/2020 Passive Smoke Exposure: Past Smokeless Tobacco: Never Alcohol Use Standard Drinks/Week Comments Not Currently 0 (1 standard drink = 0.6 oz pur e alcohol) last used 03/08 [facility] Utilities Answer Date Recorded In the [...] How often do you attend chur or synagogue services? Never 12/05/2022 Do you belong to any clubs o r organizations such as rastafarian groups, unions, fraternal or athletic groups, or [...] Answer Date Recorded PHQ-2 Score 6 09/20/2024 [facility] [place] of Occupat ional Health - Occupational Stress [...] Date Recorded Dental: Regular Dentist No 11/10/19 Employment Answer Date Recorded Employment status Unemployed/not [...] AM CDT Legal Sex Male 10:06 PM STORE RECEIVER Gender Identity Male 06/03/2020 8:27 AM CDT Sexual Orientation Lesbian or Singh 06/03/2020 8: 27 AM CDT documented as of this encounter Miscellaneous Notes * Telephone Encounter - Silva Fuentes - 11/15/2024 9:21 AM CST Duplicate E RECEIVER documented in this encounter Plan of Treatment Upcoming Encounters Date Type Department Care Team (Late st Contact Info) Description 11/25/2024 11:00 AM STORE RECEIVER Comprehensive Visit Department of Family Medicine in [place], [place] [address] [place] [address] Meri Burgess APRN, C.N.P. [address] [place] [phone] 12/24/2024 8:00 AM CDT Telemedicine Department of Neurology in [place], [place] [address] [place] [phone] Albino Vargas M.B., Ch.B. [address] [place] [address] documented as of this encounter Visit Diagnoses Not on filedocumented in this encounter Additional Health Concerns Assessment Noted Time PHQ-9 Depression Total Score: 27 024 12:07 PM STORE RECEIVER documented as of this encounter Care Teams Wedding Transportation Driver Relationship Specialty Start Date End Date Lucy Augustnie APRN, C.N.P. [address] [place] [phone] PCP - General Family Medicine 03/14/22 documented as of this encounter
--- OUTSIDE RECORDS SUMMARY | 2024-11-22 13:52 | XMS_ITS | Encounter Summary ---
Author Organization [facility] Address [address] [place] [address] Care Team Providers Care Public Speaking Coach Name Role Phone Lucy Augustine APRN, C.N.P. Primary Care Provide r Reason for Visit * Reason Comments Med Refill Encounter Details Date Type Department Care Team (Late st Contact Info) Description 11/11/2024 Refill Department of Family Medicine in [place], [place] [address] [place] [phone] Meri Burgess APRN, C.N.P. [address] [place] [phone] Med Refill Social History Tobacco Use Types Packs/Day Years Used Date Smoking Tobacco: Former Cigarettes Q uit: 06/24/2020 Passive Smoke Exposure: Past Smokeless Tobacco: Never Alcohol Use Standard Drinks/Week Comments Not Currently 0 (1 standard drink = 0.6 oz pur e alcohol) last used 03/08 [facility] Utilities Answer Date Recorded In the [...] How often do you attend chur or oriental orthodox services? Never 12/05/2022 Do you belong to any clubs o r organizations such as nondenominational groups, unions, fraternal or athletic groups, or [...] Answer Date Recorded PHQ-2 Score 6 09/20/2024 [facility] [place] of Occupat ional Health - Occupational Stress [...] your living situation today? I have a [facility] place to live 06/08/2024 Education Answer Date Recorded What is the highest level of school you have completed or the highest degree you have received? 12th grade 03/30/2020 Sex and Gender Information Value Date Recorded Sex Assigned at Male 07/01/2021 9:57 AM CDT Legal Sex Male 10:06 PM TRANSFORMATION ANALYST Gender Identity Male 06/03/2020 8:27 AM CDT Sexual Orientation Lesbian or Singh 06/03/2020 8: 27 AM CDT documented as of this encounter Miscellaneous Notes * Telephone Encounter - Madison Wolff - 11/12/2024 10:00 AM CST Recent Visits Date Type Provider Dept 09/20/24 Telemedicine Meri Burgess APRN, C.N.P. [facility] 08/12/24 [facility] Showing recent visits within past 365 days with a meds authorizing provider and meeting all other requirements Future Appointments No visits were found meeting these conditions. Showing future appointments within next 90 days with a meds authorizing provider and meeting all other requirements SFORMATION ANALYST documented in this encounter Plan of Treatment Upcoming Encounters Date Type Department Care Team (Late st Contact Info) Description 11/25/2024 11:00 AM TRANSFORMATION ANALYST Comprehensive Visit Department of Family Medicine in [place], [place] [address] [place] [address] Meri Burgess APRN, C.N.P. [address] [place] [phone] 12/24/2024 8:00 AM CDT Telemedicine Department of Neurology in [place], [place] [address] [place] [address] Albino Vargas M.B., Ch.B. [address] [place] [phone] documented as of this encounter Visit Diagnoses Not on filedocumented in this encounter Additional Health Concerns Assessment Noted Time PHQ-9 Depression Total Score: 27 024 12:07 PM TRANSFORMATION ANALYST documented as of this encounter Care Teams Public Speaking Coach Relationship Specialty Start Date End Date Lucy Augustine APRN, C.N.P. [address] [place] [phone] PCP - General Family Medicine 03/14/22 documented as of this encounter
--- OUTSIDE RECORDS SUMMARY | 2024-11-22 13:52 | XMS_ITS | Clinical Summary ---
Author Organization [employer] Address [facility] [place] [address] Care Team Providers Care Trim Machine Operator Name Role Phone Vannessa Alas DO Primary Care Provider [phone] Remedios Thomas MD Unavail able Allergies Active Allergy Reactions Criticality Noted Date Comments Baclofen Rash 07/02/2021 Medications divalproex (DEPAKOTE ER) 500 mg Extended-Releas e tablet Take 1,000 mg by mouth at bedtime. 4 Active lamoTRIgine (LAMICTAL XR) 200 mg extended release tablet Take 400 mg by mouth once daily. 3 Active celecoxib (CELEBREX) 200 mg capsule Take 200 mg by mouth 2 times daily if needed for Pain. 5 Active gabapentin (NEURONTIN) 300 mg capsuleIndicati ons:Generalized anxiety disorder Take 1 Capsule (300 mg) by mouth three times daily. 90 Capsule 5 Active desvenlafaxine succinate (PRISTIQ) 25 mg extended release tabletIndicatio ns:Severe major depressive disorder (HC),Generalize d anxiety disorder,Panic disorder Take 1 Tablet (25 mg) by mouth once daily. Do not crush or chew. 30 Tablet 5 12/17/19 25 Active FLUoxetine (PROZAC) 40 mg capsuleIndicati ons:Severe major depressive disorder (HC),Recurrent insomnia,Genera lized anxiety disorder,Alcoho l use disorder, moderate, in early remission (HC),Panic disorder Take 1 Capsule (40 mg) by mouth once daily. (Total of 60 mg) 90 Capsule 5 Active FLUoxetine (PROZAC) 20 mg capsuleIndicati ons:Severe major depressive disorder (HC),Recurrent insomnia,Genera lized anxiety disorder,Alcoho l use disorder, moderate, in early remission (HC),Panic disorder Take 1 Capsule (20 mg) by mouth once daily. (Total of 60 mg daily) 90 Capsule 5 Active naltrexone (REVIA) 50 mg tabletIndicatio ns:Alcohol use disorder, moderate, in early remission (HC) 25 mg (1/2 pill) twice a day 90 Tablet 5 Active hydrOXYzine HCL (ATARAX) 50 mg tabletIndicatio ns:Severe major depressive disorder (HC),Generalize d anxiety disorder Take 1 Tablet (50 mg) by mouth 3 times daily if needed (anxiety). 90 Tablet 5 Active diazePAM (VALIUM) 10 mg tabletIndicatio ns:Severe major depressive disorder (HC),Recurrent insomnia,Genera lized anxiety disorder,Panic disorder Take 1 Tablet (10 mg) by mouth two times daily. 60 Tablet 5 Active naproxen (NAPROSYN) 500 mg tabletIndicatio ns:Pain in sacrum Take 1 Tablet (500 mg) by mouth two times daily with meals. 60 Tablet 5 Active tiZANidine (ZANAFLEX) 2 mg tabletIndicatio ns:Pain in sacrum Take 1 Tablet (2 mg) by mouth every 8 hours if needed for Muscle Spasm. 30 Tablet 5 Active hydrOXYzine HCL (ATARAX) 50 mg tabletIndicatio ns:Severe major depressive disorder (HC),Generalize d anxiety disorder Take 1 Tablet (50 mg) by mouth 3 times daily if needed (anxiety). 90 Tablet 5 11/16/19 25 Discontinue d(Reorder (E-cancel not sent)) diazePAM (VALIUM) 5 mg tabletIndicatio ns:Severe major depressive disorder (HC),Generalize d anxiety disorder,Panic attacks Take 1 Tablet (5 mg) by mouth once daily if needed (acute anxiety). 30 Tablet 5 10/29/19 25 Discontinue d(Reorder (E-cancel not sent)) desvenlafaxine succinate (PRISTIQ) 50 mg Extended-Releas e tabletIndicatio ns:Severe major depressive disorder (HC) Take 1 Tablet (50 mg) by mouth once daily. 30 Tablet 5 11/16/19 25 Discontinue d(*Med complete/Re gimen complete/[place] allison of care change) desvenlafaxine succinate (PRISTIQ) 25 mg extended release tabletIndicatio ns:Severe major depressive disorder (HC) Take 1 Tablet (25 mg) by mouth once daily. 30 Tablet 5 11/02/19 25 Discontinue d(*Medicati on adjustment) citalopram (CeleXA) 20 mg tabletIndicatio ns:Severe major depressive disorder (HC) Take 1 Tablet (20 mg) by mouth once daily. 30 Tablet 5 11/02/19 25 Discontinue d(*Med complete/Re gimen complete/[place] of care change) citalopram (CeleXA) 10 mg tabletIndicatio ns:Severe major depressive disorder (HC) Take 1 Tablet (10 mg) by mouth once daily. 30 Tablet 5 11/02/19 25 Discontinue d(*Med complete/Re gimen complete/[place] of care change) naltrexone (REVIA) 50 mg tabletIndicatio ns:Alcohol use disorder 25 mg (1/2 pill) twice a day 30 Tablet 5 11/16/19 25 Discontinue d(Reorder (E-cancel not sent)) diazePAM (VALIUM) 5 mg tabletIndicatio ns:Severe major depressive disorder (HC),Generalize d anxiety disorder,Panic attacks Take 1 Tablet (5 mg) by mouth two times daily. As needed for acute anxiety, panic attacks 60 Tablet 1 5 11/02/19 25 Discontinue d(*Medicati on adjustment) FLUoxetine (PROZAC) 40 mg capsuleIndicati ons:Severe major depressive disorder (HC),Panic disorder,Genera lized anxiety disorder Take 1 Capsule (40 mg) by mouth once daily. 30 Capsule 5 11/16/19 25 Discontinue d(*Medicati on adjustment) diazePAM (VALIUM) 10 mg tabletIndicatio ns:Severe major depressive disorder (HC),Panic disorder,Recurr ent insomnia,Genera lized anxiety disorder Take 1 Tablet (10 mg) by mouth two times daily. 60 Tablet 5 11/16/19 25 Discontinue d(Reorder (E-cancel not sent)) oxyCODONE (ROXICODONE) 5 mg immediate release tablet Take 1 Tablet by mouth every 6 hours if needed for Pain. 5 11/12/19 25 Discontinue d(Reorder (E-cancel not sent)) gabapentin (NEURONTIN) 300 mg capsule Take 300 mg by mouth two times daily. 5 11/12/19 25 Discontinue d(*Medicati on adjustment) oxyCODONE (ROXICODONE) 5 mg immediate release tabletIndicatio ns:Pain in thoracic spine at multiple sites,Acute pain of both shoulders Take 1 Tablet (5 mg) by mouth 2 times daily if needed for Pain. 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 Generalized anxiety disorder 01/02/2016 Severe major depressive disorder 01/02/2016 Resolved Problems Problem Noted Date Diagnosed Date Resolved Date Alcohol dependence in remission 01/17/2023 10/04/2024 Nondependent opioid abuse 08/03/2021 Encephalitis, myelitis, and encephalomyelitis 05/18/2010/04/2024 Encounters Date Type Department Care Team Description 11/22/2024 Telephone [facility] [address] [place] [address] Remedios Thomas MD Medication Management 11/19/2024 12:50 PM REBAR BENDER Telemedicine [facility] [address] [place] [phone] Error-please disregard (opened in error) 11/19/2024 Telephone [facility] [address] [place] [address] Rosa Landers Referral; Follow Up 11/19/2024 Telephone [facility] [address] [place] [address] Rosa Landers 11/19/2024 Nurse Triage [facility] [address] [place] [address] Vannessa Alas DO Neck Injury; Back Injury 11/19/2024 Telephone [facility] [address] [place] [address] Vannessa Alas DO Medication Management (Refill oxyCODONE (ROXICODONE) 5 mg immediate release tablet) 11/19/2024 Telephone [facility] [address] [place] [address] Rosa Landers Follow Up 11/19/2024 Travel 11/19/2024 Telephone [facility] [address] [place] [address] Rosa Landers Follow Up 11/19/2024 Telephone [facility] [address] [place] [address] Wale Jalloh LADC Referral 11/19/2024 Telephone [facility] [address] [place] [address] Cassandra Bean Day 0 INTAKE 11/17/2024 11:15 AM REBAR BENDER Office Visit [facility] [address] [place] [address] Vannessa Alas DO Back Pain (follow up on back pain after fall down the stairs, feels pain is still not well controlled. States pain is at 10/10, pain is worse than at appointment on 11/12. ) 11/16/2024 9:30 AM REBAR BENDER Telemedicine [facility] [address] [place] [address] Remedios Thomas MD Telehealth (OR); Medication Management 11/16/2024 Travel 11/15/2024 11:15 AM REBAR BENDER E-Visit [facility] [address] [place] [address] Vannessa Alas, eVisit for Back Pain 11/15/2024 Travel 11/14/2024 Travel 11/13/2024 9:00 AM REBAR BENDER E-Visit [facility] [address] [place] [address] Vannessa Alas, DO eVisit for Headache 11/13/2024 Travel 11/12/2024 11:30 AM REBAR BENDER Ancillary Procedure [facility] [address] [place] [address] 11/12/2024 10:30 AM REBAR BENDER Ancillary Procedure [facility] [address] [place] [address] 11/12/2024 10:00 AM REBAR BENDER Office Visit [facility] [address] [place] [address] Vannessa Alas, Fall (Fell down 8 stairs at apartment carrying items up stairs on 11/08, has had back pain since then that is limiting mobility, also having neck and shoulder pain. Had CT scan at [facility] that came back as normal. Was dispensed oxycodone prn at ED. ) 11/12/2024 Travel 11/11/2024 Orders Only [facility] Scanner 1 scan: (1-Ord) [facility], CT CERVICAL SPINE, 11/11/2024 11/11/2024 Orders Only [facility] Scanner 1 scan: (1-Ord) [facility], CT LUMBAR SPINE, 11/11/2024 11/10/2024 12:55 PM REBAR BENDER Telemedicine [facility] [place] [address] Nataliya Tineo NP Telehealth (Back and teeth pain/No vitals taken -virtual visit./) 11/10/2024 Travel 11/10/2024 Nurse Triage [facility] [address] [place] [address] Vannessa Alas, DO Back Injury 11/09/2024 Travel 11/09/2024 Telephone [facility] [address] [place] [address] Heather Moura, RN [facility] 11/08/2024 12:40 PM REBAR BENDER Telemedicine [facility] [address] [place] [phone] Avery Tuttle NP Back Pain 11/08/2024 Nurse Triage [facility] [address] [place] [address] Vannessa Alas, DO Back Injury 11/08/2024 Travel 11/08/2024 Telephone [facility] [address] [place] [address] Elvira Hernandez [facility] Care Coordination 11/08/2024 Telephone [facility] [address] [place] [address] Remedios Thomas MD Medication Management 11/07/2024 Travel 11/02/2024 1:15 PM REBAR BENDER Telemedicine [facility] [address] [place] [address] Remedios Thomas MD Telehealth (OR); Medication Management 11/01/2024 Travel 10/29/2024 10:30 AM REBAR BENDER Telemedicine [facility] [address] [place] [address] Remedios Thomas MD Telehealth (OR); Medication Management 10/28/2024 Travel 10/21/2024 Telephone [facility] [address] [place] [address] Remedios Thomas MD Referral (Mental Health ) 10/19/2024 8:30 AM REBAR BENDER Telemedicine [facility] [address] [place] [address] Remedios Thomas MD Mental Health Intake; Telehealth 10/04/2024 1:10 PM REBAR BENDER Office Visit [facility] [address] [place] [address] Vannessa Alas, Establish Care (recently moved here, [...] Answer Date Recorded PHQ-2 TOTAL SCORE 6 11/15/2024 Social Connections Answer Date Recorded Do you [...] on file Legal Sex Male 12:29 PM REBAR BENDER Gender Identity Not on file Sexual Orientation Not on file Obstetrics History Last Filed Vital Signs Vital Sign Reading Time Taken Comments Blood Pressure 112/75 11/17/2024 11:24 AM REBAR BENDER Pulse 102 11/17/2024 12:13 PM REBAR BENDER Temperature 36.5 C (97.7 F) 06/29/2023 10:38 AM CDT Respiratory Rate 20 05/14/2023 9:38 AM CDT Oxygen Saturation 95% 06/29/2023 10:38 AM CDT Inhaled Oxygen Concentration - - Weight 100.2 kg (221 lb) 10/04/2024 1:19 PM REBAR BENDER Height 177.8 cm (5' 10) 05/14/2023 9:38 AM CDT Body Mass Index 31.71 05/14/2023 9:38 AM CDT Plan of Treatment Upcoming Encounters Date Type Department Care Team (Late st Contact Info) Description 12/02/2024 10:25 AM CDT Office Visit [facility] [address] [place] [address] Vannessa Alas DO [address] [place] [address] 12/14/2024 9:30 AM CDT Telemedicine [facility] [address] [place], [place] [id number] Remedios Thomas MD [address] [id number] Health Maintenance Due Date Last Done Comments BMI (ht and wt on same day) for age 18+ 05/14/2024 05/14/2023, 09/23/2019 COVID-19 vaccine series ( season) 2024 07/26/2021, 10/26/2020, 10/05/2020 Influenza for age 9-49 05/23/2024 , 08/02/2022, 08/02/2022, Additional history exists Depression screening for age 12+ 11/19/2025 11/19/2024, 11/19/2024, 11/19/2024, Additional history exists Tetanus booster 03/04/2032 03/04/2022, 05/15/2009 HIV for age 15-65 Completed 08/31/2015, 08/31/2015 Hepatitis C screening for ag e 18-79 Completed 08/31/2015 Tdap Completed 03/04/2022, 05/15/2009 Pneumococcal series for age 6-49 Completed 08/02/20 22 Procedures Procedure Name Priority Date/Time Associated Diagnosis Comments CT SPINE THORACIC WO GURMEET 11/12/2024 11:30 AM REBAR BENDER Pain in thoracic spine at multiple sites XR SHOULDER 3 VIEWS BILATERAL Routine 11/12/2024 10:50 AM REBAR BENDER Pain in thoracic spine at multiple sites Acute pain of both shoulders SCAN-CT INTERPRETATION 5 12:00 AM REBAR BENDER SCAN-CT INTERPRETATION 5 12:00 AM REBAR BENDER ANTI HIV 1/2 STAT 08/31/2015 9:25 PM REBAR BENDER ANTI HCV STAT 08/31/2015 9:25 PM REBAR BENDER from Last 3 Months or Most Recently Relevant to Health Maintenance Results * CT SPINE THORACIC WO (11/12/2024 11:30 AM REBAR BENDER) Anatomical Region Laterality Modality THORACIC SPINE, Spine, Spine Com puted Tomography 11/12/2024 11:4 6 AM REBAR BENDER Narrative 11/12/2024 11:46 AM REBAR BENDER For Patients: As a result of the Cures Act, medical imaging exams and procedure reports are released immediately into your electronic medical record. You may view this report before your referring provider. If you have questions, please contact your health care provider. Indication: Trauma, thoracic spine pain. Technique: Noncontrast CT of the thoracic spine with multiplanar reconstructions utilizing bone and soft tissue algorithms. Comparison: None available. Findings: No acute fracture or traumatic subluxation. Normal vertebral alignment and stature. No aggressive osseous lesion. Unremarkable paraspinal soft tissues. No significant spinal canal or neural foraminal stenosis. Impression: No acute fracture or traumatic subluxation. Please note that all CT scans at this facility use dose modulation, iterative reconstruction, and/or weight-based dosing when appropriate to reduce radiation dose to as low as reasonably achievable. Dictated by German Franco MD @ 11/12/2024 11:46:32 AM (Electronically Signed) Procedure Note Ronny Franco MD - 11/12/2024 For Patients: As a result of the Cures Act, medical imagingexams and procedure reports are released immediately into your electronicmedical record. You may view this report before your referring provider.If you have questions, please contact your health care provider. Indication: Trauma, thoracic spine pain. Technique: Noncontrast CT of the thoracic spine with multiplanar reconstructionsutilizing bone and soft tissue algorithms. Comparison: None available. Findings: No acute fracture or traumatic subluxation. Normal vertebral alignment andstature. No aggressive osseous lesion. Unremarkable paraspinal softtissues. No significant spinal canal or neural foraminal stenosis. Impression: No acute fracture or traumatic subluxation. Please note that all CT scans at this facility use dose modulation,iterative reconstruction, and/or weight-based dosing when appropriate toreduce radiation dose to as low as reasonably achievable. Dictated by Gemran Franco MD @ 11/12/2024 11:46:32 AM (Electronically Signed) Vannessa Alas DO CT Final Resu lt * XR SHOULDER 3 VIEWS BILATERAL (11/12/2024 10:50 AM REBAR BENDER) Anatomical Region Laterality Modality SHOULDERS Computed Radiogr aphy 11/14/2024 8:02 AM REBAR BENDER Impressions 11/14/2024 8:02 AM REBAR BENDER 1. Joint spaces maintained. 2. No fracture or dislocation. Dictated by Shahid Stuart MD @ 11/14/2024 8:02:11 AM (Electronically Signed) Narrative 11/14/2024 8:02 AM REBAR BENDER For Patients: As a result of the Cures Act, medical imaging exams and procedure reports are released immediately into your electronic medical record. You may view this report before your referring provider. If you have questions, please contact your health care provider. HISTORY: Bilateral shoulder pain. TECHNIQUE: Three views of both shoulders. COMPARISON: No prior. FINDINGS: On the left, glenohumeral joint maintained. AC joint maintained. No fracture or dislocation. There is lateral downward sloping of the acromion likely present. Type 1 acromial morphology. On the right, glenohumeral joint maintained. AC joint maintained. No fracture or dislocation. Lateral downward sloping of the acromion likely present. Type 1 acromial morphology. Procedure Note Shahid Stuart MD - 11/14/2024 For Patients: As a result of the Cures Act, medical imagingexams and procedure reports are released immediately into your electronicmedical record. You may view this report before your referring provider.If you have questions, please contact your health care provider. HISTORY: Bilateral shoulder pain. TECHNIQUE: Three views of both shoulders. COMPARISON: No prior. FINDINGS: On the left, glenohumeral joint maintained. AC joint maintained. Nofracture or dislocation. There is lateral downward sloping of the acromionlikely present. Type 1 acromial morphology. On the right, glenohumeral joint maintained. AC joint maintained. Nofracture or dislocation. Lateral downward sloping of the acromion likelypresent. Type 1 acromial morphology. IMPRESSION: 1. Joint spaces maintained. 2. No fracture or dislocation. Dictated by Shahid Stuart MD @ 11/14/2024 8:02:11 AM (Electronically Signed) us Vannessa Alas DO GENERAL IMAGING Final Resu lt * SCAN-CT INTERPRETATION (11/11/2024 12:00 AM REBAR BENDER) Only the most recent of2 resultswithin the time period is included. Anatomical Region Laterality Modality Other us Scanner OTHER Final Result * ANTI HCV (08/31/2015 9:25 PM REBAR BENDER) HEPATITIS C ANTIBODY Non-Reacti ve Non-Reacti ve 09/01/2015 12:40 PM REBAR BENDER [email or web address] [facility] Blood specimen (specimen) BLOOD SPECIMEN / Unknown Venipuncture / Unknown 08/31/2015 9:25 PM REBAR BENDER 08/31/2015 9:29 PM REBAR BENDER Narrative [facility] - 09/01/2015 12:40 PM REBAR BENDER Antibodies to HCV not detected; does not exclude the possibility of exposure to HCV. us [facility] Final Resu lt [facility] [address] [place] [address], * ANTI HIV 1/2 (08/31/2015 9:25 PM REBAR BENDER) HIV-1/HIV-2 ANTIBODY Non-Reacti ve Non-Reacti ve 09/01/2015 12:38 PM REBAR BENDER [facility] Blood specimen (specimen) BLOOD SPECIMEN / Unknown Venipuncture / Unknown 08/31/2015 9:25 PM REBAR BENDER 08/31/2015 9:29 PM REBAR BENDER [facility]ative [facility] 09/01/2015 12:38 PM REBAR BENDER HIV-1 p24 and HIV-1/HIV-2 Ab not detected [facility] [employer] [employer] Final Resu lt Performing Organization Address City/[facility]/ZIP Co de Phone Number [facility] [address] [place] [address], from Last 3 Months or Most Recently Relevant to Health Maintenance Insurance [place]ICAID [place]ARE MEDICARE PART A HB ONLY MEDICARE PART B HB ONLY WORKERS [id number] [id number] [place] [id number] Care Teams Trim Machine Operator Relationship Specialty Start Date End Date Vannessa Alas DO [address] [place] [address] PCP - General Family Practice 10/04/24 Remedios Thomas MD [address] [address] Psychiatry 10/19/24
[2024-11-22 15:02] VITALS: BP 105/73; PULSE 81; RESP 18; TEMP 37.1; O2SAT 98
[2024-11-22] MEDS: ACETAMINOPHEN 500 MG TABLET 1000 MG PO (15:40)
--- NOTE | 2024-11-22 17:21 | PC.SOCIAL ---
Social work: Received request from RN to meet with pt. Met with pt who states he has recently moved to [place]. Pt denies any concerns regarding housing, finances or food access. Pt states he has a psychiatrist for medication management but is interested in connecting with a therapist for support. His therapist is through [facility] in [place] although he sees the therapist by virtual visit. Pt was open to the suggestion to contact [facility] mental health department in the [facility] to ask about therapist availability as he is already connected with this system. Pt was also interested in looking at the other therapist options in [place]. Provided pt with the [facility] health resource list which has therapists in [place] and also lists of crisis lines. Pt states he is able to follow up and connect with a therapist on his own and plans to do that. Pt denies any suicidal or homicidal thoughts and shared that he feels he is safe to be discharged home. Provided pt with the Community Resource lists of additional community support and resources and crisis lines. Also provided phone number to Social Workers at [facility] in case he had any questions about resources provided. Pt was tearful throughout visit and expressed appreciation for information provided.
== END 2024-11-22 15:53 | disposition home or self-care (01) ==
PROVIDERS: Emergency Provider Family Medicine; PCP Family Medicine
DX: S30.0XXA Contusion of lower back and pelvis, initial encounter (principal); W01.0XXA Fall on same level from slipping, tripping and stumbling without subsequent striking against object, initial encounter
CPT/HCPCS: 72170; 72220; 99283; A9270

== ENCOUNTER 2025-03-18 19:45 | Outpatient (CLI) | payer MEDICARE, BC, SELFPAY ==
--- OUTSIDE RECORDS SUMMARY | 2025-03-22 01:51 | XMS_ITS | Clinical Summary ---
Author Organization [facility] Address [address] [place] [id number] Care Team Providers Care Paper Cup Machine Tender Name Role Phone Lucy Augustine MEGHAN Primary Care Provider [phone] Allergies No known active allergies Social History [...] ORDERS 1996 YEARLY PREVENTIVE VISIT 12/17/1999 HPV VACCINE (2 - Male 3-dose series) 08/30/2022 08/02/2022 COVID-19 VACCINE ( season) 2024 07/26/2021, 10/26/2020, 10/05/2020 PHQ-2 (once per calendar year) 2024 INFLUENZA VACCINE (Season Ended) 2025 12/02/2022, 08/02/2022, 08/29/2020, Additional history exists DTAP/TDAP/TD VACCINE (8 - Td or Tdap) 03/04/2032 03/04/2022, 05/15/2009, 01/20/2002, Additional history exists ZOSTER VACCINE (1 of 2) 2046 HEPATITIS B VACCINE Completed 04/09/2000, 05/03/1997, 03/01/1997, Additional history exists MENINGITIS VACCINE Aged Out 05/15/2009 No longer eligible based on patient's age to complete this topic HEPATITIS C SCREENING Completed 08/31/2015 PNEUMOCOCCAL VACCINE: PEDIATRICS (0 to 5 YEARS) AND AT-RISK PATIENTS (6 to 49 YEARS) Aged Out 08/02/2022 No longer eligible based on patient's age to complete this topic HIV SCREENING Completed 12/02/2022, 08/31/2015 [facility] [employer] Care Teams Paper Cup Machine Tender Relationship Specialty Start Date End Date Lucy Augustine NP [address] [place] [phone] PCP - General 05/05/24
--- OUTSIDE RECORDS SUMMARY | 2025-03-22 01:51 | XMS_ITS | Clinical Summary ---
Author Organization [facility] Address [address] [place] [address] Care Team Providers Care Pest Control Chemical Technician Name Role Phone Lucy Augustine APRN C.N.P. Primary Care Provide r Source Comments Patient records contain information from all sites at [facility]. For routine questions regarding patient records, call [phone] during business hours, M-F 8:00 AM - 5:00 PM Central Time. Record requests for emergency care only can be directed to [phone] at any time.[facility] Allergies Active Allergy Reactions Criticality Noted Date [...] with morning meal. 30 tablet 09/20/2024 Active gabapentin (Neurontin) 300 mg capsule Take 1 capsule (300 mg total) by mouth 3 (three) times a day. 90 capsule 09/20/2024 Active propranoloL (InderaL) 20 mg tablet Take 1 tablet (20 mg total) by mouth 2 (two) times a day as needed (Anxiety). 60 tablet 2 09/20/2024 Active diazePAM (Valium) 5 mg tablet Take 1 tablet (5 mg total) by mouth daily as needed for anxiety. 30 tablet 09/20/2024 Active divalproex (Depakote) 500 mg EC tablet Take 2 tablets (1,000 mg total) by mouth at bedtime. 180 tablet 2 12/19/2024 Active lamoTRIgine ER (LaMICtaL XR) 200 mg 24 hr tablet Take 2 tablets (400 mg total) by mouth daily. 180 tablet 3 12/24/2024 Active Active Problems Problem Noted Date Diagnosed [...] (06/23/2020): Added automatically from request for surgery [id number] Encephalitis And Encephalomy elitis Unspecified 05/18/2020 10/20/2023 Rhabdomyolysis 05/16/2020 06/01/2020 Encephalopathy Toxic 05/15/2020 020 Encounters Date Type Department Care Team Description 01/25/2025 Orders Only [facility] MNT Lucy Augustine APRN, C.N.P. 01/14/2025 2:30 PM CDT Telemedicine Department of Neurology in [place], [place] [address] [place] [phone] Albino Vargas M.B., Ch.B. Encephalitis And Encephalomyelitis Unspecified (HCC) (Primary Dx); Seizure (HCC) Discharge Disposition: Home or Self Care 12/23/2024 Refill Department of Family Medicine in [place], [place] [address] [place] [phone] Lucy Augustine APRN, C.N.P. Med Refill from Last 3 Months Immunizations Immunization Administration Dates Next Due 9vHPV 08/02/2022 DTP 01/20/2002, 8,06/18/1997,1996,03/01/1997 DTP / Hib 06/18/1997 HepA Pediatric/Adolescent 07/04/2001,04/09/2000 HepB (discontinued) adolesce nt/high risk 05/03/1997,03/01/1997,1996 HepB Adult 04/09/2000,05/03/1997,03/01/1997 HepB, Unspecified 04/09/2000,05/03/1997,03/01/19 [...] Status Comments Father Alive Maternal Grandmother Mother Megahan Alive Social History Tobacco Use Types Packs/Day Years Used Date Smoking Tobacco: Every Day Cigarettes 1 9.5 Started: 01/09/2011; Last attempted to quit: 06/24/2020 Hookah Passive Smoke Exposure: Past Smokeless Tobacco: Never Tobacco Cessation:Counseling Given: Not Answered Alcohol Use Standard Drinks/Week Comments Not Currently 0 (1 standard drink = 0.6 oz pur e alcohol) last used 03/08 [facility] Utilities Answer Date Recorded In the past 12 months has th e electric, gas, oil, or water company [...] by your partner or ex-partner? No 03/03/2023 Hunger Vital Sign Answer Date Recorded Within [...] PHQ-9 Total Score (max 27) 27 09/20 Housing Stability Answer Date Recorded What is your living situation today? I have a [facility] place to live 06/08/2024 Education Answer Date Recorded What is the highest level of school you have completed or the highest degree you have received? 12th grade 03/30/2020 Sex and Gender Information Value Date Recorded Sex Assigned at Male 07/01/2021 9:57 AM CDT Legal Sex Male 10:06 PM SCARFING MACHINE OPERATOR Gender Identity Male 06/03/2020 8:27 AM CDT Sexual Orientation Lesbian or Singh 06/03/2020 8: 27 AM CDT Last Filed Vital Signs Vital Sign Reading Time Taken Comments Blood Pressure 122/76 08/12/2024 11:18 AM SCARFING MACHINE OPERATOR Pulse 75 08/12/2024 11:18 AM SCARFING MACHINE OPERATOR Temperature 36 C (96.8 F) 08/12/2024 11:18 AM SCARFING MACHINE OPERATOR Respiratory Rate 29 04/10/2024 12:15 AM CDT Oxygen Saturation 96% 08/12/2024 11:18 AM SCARFING MACHINE OPERATOR Inhaled Oxygen Concentration - - Weight 110 kg (241 lb 11.2 oz) 08/12/2024 11:18 AM SCARFING MACHINE OPERATOR Height 177.8 cm (5' 10) 04/09/2024 9:18 PM CDT Body Mass Index 34.68 04/09/2024 9:18 PM CDT Plan of Treatment Health Maintenance Due Date Last Done Comments Visit: Chronic Disease, age 18+ 1996 HPV Vaccines (2 - Male 3-dos e series) 08/30/2022 08/02/2022 COVID-19 Vaccine (4 - 2023-2 5 season) 2024 07/26/2021, 10/26/2020, 10/05/2020 Depression Monitoring (PHQ-9 for quality tracking) 09/22/2024 Depression Monitoring (PHQ-9) 01/19/2025 09/20/2024 Influenza Vaccine (#1) 2025 , 08/02/2022, 08/02/2022, Additional history exists Office Visit for Blood Press ure Check / Re-check 08/12/2025 08/12/2024 Tobacco Cessation counseling 01/14/2026 01/14/2025, 02/06/2023 DTaP,Tdap,and Td Vaccines (8 - Td or Tdap) 03/04/2032 03/04/2022, 05/15/2009, 01/20/2002, Additional history exists Hepatitis B Vaccines Completed 04/09/2000, 04/09/2000, 05/03/1997, Additional history exists Hepatitis A Vaccines Completed 07/04/2001, 04/09/20 00 IPV Vaccines Completed 07/04/2001, 06/22, 01/26/1998, Additional history exists Varicella Vaccines Completed 05/15/2009, 01/26/1998 Pneumococcal vaccine (0-49 years) Completed 022 Hepatitis B Screening Discontinued 12/02/2022, 020 Glucose Test for Med Monitoring [...] M.D. LAB BLOOD ADD-ON Final Res ult [facility] [address] [place] [address], [facility] in [place] [address] [place] [address] * Hepatitis B Surface Antigen (12/02/2022 8:10 PM CDT) HBs Antigen, S Negative Negative 12/03/2022 7:59 AM CDT [facility] Blood (Blood, Venous) 12/02/2022 8:10 PM CDT 12/03/2022 6:57 AM CDT Yvette Carrera M.D., M.S. LAB MICROBIOLOGY - BLOOD ORDERABLES Final Result [facility] [address] [place] [address] [facility] [address] [place] [address] from Last 3 Months or Most Recently Relevant to Health Maintenance Insurance MEDICARE [facility] Advance Directives For more information, please contact: [phone] * Full Code (Latest Code Status on [...] Due to: Patient does not have the [facility] Care Teams Pest Control Chemical Technician Relationship Specialty Start Date End Date Lucy Augustine APRN, C.N.P. [address] [place] [address] PCP - General Family Medicine 03/14/22
--- OUTSIDE RECORDS SUMMARY | 2025-03-22 01:51 | XMS_ITS | Clinical Summary ---
Author Organization [facility] [employer] [facility] Address [address] [address] Phone Care Team Providers Care Tattoo Identifier Name Role Phone Choice, No Pcp-Patient Primary [...] Comments Blood Pressure 140/85 11/28/2022 8:45 PM ASSISTANT BRANCH MANAGER Pulse 89 11/28/2022 8:45 PM ASSISTANT BRANCH MANAGER Temperature 37.1 C (98.8 F) 11/28/2022 6:56 PM ASSISTANT BRANCH MANAGER Respiratory Rate 11 11/28/2022 8:45 PM ASSISTANT BRANCH MANAGER Oxygen Saturation 97% 11/28/2022 8:45 PM ASSISTANT BRANCH MANAGER Inhaled Oxygen Concentration - - Weight 81.6 kg (180 lb) 11/25/2022 10:35 PM ASSISTANT BRANCH MANAGER Height 177.8 cm (5' 10) 11/25/2022 10:35 PM ASSISTANT BRANCH MANAGER Body Mass Index 25.83 11/25/2022 10:35 PM ASSISTANT BRANCH MANAGER Plan of Treatment Health Maintenance Due Date Last Done Comments Hepatitis B Vaccine (Standin g Order) (1 of 3 - 19+ 3-dose series) 12/17/2015 PERTUSSIS (Standing Order) 12/17/2015 TETANUS (Standing Order) 12/17/2015 HPV Vaccine (Standing Order) Aged Out No longer eligible based on patient's age to complete this topic Pneumococcal/PCV20 Vaccine: Pediatrics (2-5 yrs) and At-Risk Patients (6-49 yrs) (Standing Order) Aged Out No longer eligible b ased on patient's age to complete this [place] [address] [place] [address] Care Teams Tattoo Identifier Relationship Specialty Start Date End Date Choice, No Pcp-Patient PCP - General 11/25/22
--- OUTSIDE RECORDS SUMMARY | 2025-03-22 01:52 | XMS_ITS | Clinical Summary ---
Author Organization [facility] [place] Address [address] [place] [address] Care Team Providers Care Assignment Desk Assistant Name Role Phone Rodney Pearson MD Primary Care Provider [phone] Allergies Active Allergy Reactions Criticality Noted Date [...] recurrent major depressive d isorder 01/02/2016 Immunizations Immunization Administration Dates Next Due DTP 01/20/2002, 8,06/18/1997,05/03,03/01/1997 DTaP (Infanrix) 01/20/2002, 8,06/18/1997,05/03,03/01/1997 HIB 01/26/1998, 7,05/03/1997,03/01 [...] Comments Blood Pressure 132/88 08/02/2022 9:52 AM COLLAR TURNER Pulse 88 08/02/2022 9:40 AM COLLAR TURNER Temperature 36.4 C (97.5 F) 08/02/2022 9:40 AM COLLAR TURNER Respiratory Rate - - Oxygen Saturation 99% 08/02/2022 9:40 AM COLLAR TURNER Inhaled Oxygen Concentration - - Weight 88.5 kg (195 lb) 08/02/2022 9:40 AM COLLAR TURNER Height 177.8 cm (5' 10) 08/02/2022 9:40 AM COLLAR TURNER Body Mass Index 27.98 08/02/2022 9:40 AM COLLAR TURNER Plan of Treatment Health Maintenance Due Date Last Done Comments Hepatitis C Screening 1996 Anxiety Follow-Up (FOREIGN-7) 1997 Depression Follow-Up (PHQ-9) 1997 COVID-19 Vaccine (4 - 2023-2 5 season) 2024 07/26/2021, 10/26/2020, 10/05/2020 Influenza Vaccine (Season Ended) 2025 08/02/2022, 06/02/2019, 07/16/2012 Adult Tetanus Booster 03/04/2032 03/04/2022 , 05/15/2009 RSV Vaccines (1 - 1-dose 75+ series) 12/17/2071 Pneumococcal Vaccine Aged Out 08/02/2022 No long er eligible based on patient's age to complete this topic Meningococcal B Vaccine Aged Out No l onger eligible based on patient's age to complete this topic Care Teams Assignment Desk Assistant Relationship Specialty Start Date End Date Rodney Pearson MD [address] [facility] [address] [place] [address] PCP - General Family Medicine - 07/25/22
--- OUTSIDE RECORDS SUMMARY | 2025-03-22 01:52 | XMS_ITS | Clinical Summary ---
Author Organization [facility] Address [address] [place] [address] Care Team Providers Care Search Coordinator Name Role Phone Bishop Vannessa Ramirez DO Primary Care Provider [phone] Remedios Thomas MD Unavail able Allergies Active Allergy Reactions Criticality Noted Date Comments Baclofen Rash 07/02/2021 Medications divalproex (DEPAKOTE ER) 500 mg Extended-Releas e tablet Take 1,000 mg by mouth at bedtime. 08/15/2024 Active lamoTRIgine (LAMICTAL XR) 200 mg extended release tablet Take 400 mg by mouth once daily. 10/18/2022 Active gabapentin (NEURONTIN) 300 mg capsuleIndicati ons:Generalized anxiety disorder Take 1 Capsule (300 mg) by mouth three times daily. 90 Capsule 11/12/2024 Active naltrexone (REVIA) 50 mg tabletIndicatio ns:Alcohol use disorder, moderate, in early remission (HC) 25 mg (1/2 pill) twice a day 90 Tablet 11/16/2024 Active hydrOXYzine HCL (ATARAX) 50 mg tabletIndicatio ns:Severe major depressive disorder (HC),Generalize d anxiety disorder Take 1 Tablet (50 mg) by mouth 3 times daily if needed (anxiety). 90 Tablet 11/16/2024 Active naproxen (NAPROSYN) 500 mg tabletIndicatio ns:Pain in sacrum Take 1 Tablet (500 mg) by mouth two times daily with meals. 60 Tablet 11/17/2024 Active tiZANidine (ZANAFLEX) 2 mg tabletIndicatio ns:Pain in sacrum Take 2 mg every 8 hours during the day for muscle spasm, use 4 mg at bedtime as needed for muscle spasm 60 Tablet 11/24/2024 Active FLUoxetine 40 mg capsuleIndicati ons:Severe major depressive disorder (HC),Panic disorder,Genera lized anxiety disorder,Alcoho l use disorder, moderate, in early remission (HC),Recurrent insomnia Take 2 Capsules (80 mg) by mouth once daily. 180 Capsule 12/07/2024 Active diazePAM 10 mg tabletIndicatio ns:Severe major depressive disorder (HC),Panic disorder,Genera lized anxiety disorder,Recurr ent insomnia Take 1 Tablet (10 mg) by mouth two times daily. 60 Tablet 01/02/2025 Active Active Problems Problem Noted Date Diagnosed [...] opioid abuse 08/03/2021 Encephalitis, myelitis, and encephalomyelitis 05/18/20 20 10/04/2024 Encounters Date Type Department Care Team Description 02/10/2025 Travel 02/09/2025 2:00 PM CDT Telemedicine [facility] [address] [place] [address] Elvira Hernandez, [facility] Individual Therapy 02/05/2025 Travel 02/04/2025 Travel 02/04/2025 Telephone [facility] [address] [place] [address] Elvira Hernandez [facility] Care Coordination 02/02/2025 Refill [facility] [address] [place] [address] Remedios Thomas MD Refill Request (Diazepam 10 mg, denied, needs appt.) 01/31/2025 Telephone [facility] [address] [place] [address] Remedios Thomas MD Appointment (SAME DAY ) 01/27/2025 Telephone [facility] [address] [place] [address] Elvira Hernandez [facility] Care Coordination 01/13/2025 Telephone [facility] [address] [place] [address] Elvira Hernandez [facility] Care Coordination 01/12/2025 Telephone [facility] [address] [place] [address] Remedios Thomas MD Questions (SAME DAY SCHEDULING) 01/04/2025 Nurse Triage [facility] [address] [place] [address] Vannessa Alas, muscle twitching from Last 3 Months Immunizations Immunization Administration Dates Next Due DTP [...] Answer Date Recorded PHQ-2 TOTAL SCORE 6 02/09/2025 Social Connections Answer Date Recorded Do you [...] on file Legal Sex Male 12:29 PM LIQUOR TESTER Gender Identity Not on file Sexual Orientation Not on file Obstetrics History Last Filed Vital Signs Vital Sign Reading Time Taken Comments Blood Pressure 108/72 12/08/2024 11:21 AM CDT Pulse 97 12/08/2024 11:21 AM CDT Temperature 36.5 C (97.7 F) 06/29/2023 10:38 AM CDT Respiratory Rate 20 05/14/2023 9:38 AM CDT Oxygen Saturation 96% 12/08/2024 11:21 AM CDT Inhaled Oxygen Concentration - - Weight 89.8 kg (198 lb) 12/08/2024 11:21 AM CDT Height 177.8 cm (5' 10) 05/14/2023 9:38 AM CDT Body Mass Index 28.41 05/14/2023 9:38 AM CDT Plan of Treatment Health Maintenance Due Date Last Done Comments BMI (ht and wt on same day) for age 18+ 05/14/2024 05/14/2023, 09/23/2019 COVID-19 vaccine series ( season) 2024 07/26/2021, 10/26/2020, 10/05/2020 Influenza Vaccine (Season Ended) 2025 12/02/2022, 08/02/2022, 08/02/2022, Additional history exists Depression screening for age 12+ 02/09/2026 02/09/2025, 12/10/2024, 12/08/2024, Additional history exists Tetanus booster 03/04/2032 03/04/2022, 05/15/2009 Hepatitis B series for 19+ Completed 04/09, 04/09/2000, 05/03/1997, Additional history exists HIV for age 15-65 Completed 08/31/2015, 08/31/2015 Hepatitis C screening for ag e 18-79 Completed 08/31/2015 Tdap Completed 03/04/2022, 05/15/2009 Pneumococcal series for age 6-49 Completed 08/02/20 22 Procedures Procedure Name Priority Date/Time Associated Diagnosis Comments ANTI HIV 1/2 STAT 08/31/2015 9:25 PM LIQUOR TESTER ANTI HCV STAT 08/31/2015 9:25 PM LIQUOR TESTER from Last 3 Months or Most Recently Relevant to Health Maintenance Results * ANTI HCV (08/31/2015 9:25 PM LIQUOR TESTER) HEPATITIS C ANTIBODY Non-Reacti ve Non-Reacti ve 09/01/2015 12:40 PM LIQUOR TESTER [facility] Blood specimen (specimen) BLOOD SPECIMEN / Unknown Venipuncture / Unknown 08/31/2015 9:25 PM LIQUOR TESTER 08/31/2015 9:29 PM LIQUOR TESTER [facility] LABORATORY - 09/01/2015 12:40 PM LIQUOR TESTER Antibodies to HCV not detected; does not exclude the possibility of exposure to HCV. us Stanley GRIGGS SEND OUTS Final Resu lt [facility] [address] [place] [address], * ANTI HIV 1/2 (08/31/2015 9:25 PM LIQUOR TESTER) HIV-1/HIV-2 ANTIBODY Non-Reacti ve Non-Reacti ve 09/01/2015 12:38 PM LIQUOR TESTER [facility] Blood specimen (specimen) BLOOD SPECIMEN / Unknown Venipuncture / Unknown 08/31/2015 9:25 PM LIQUOR TESTER 08/31/2015 9:29 PM LIQUOR TESTER [facility] LAB[facility]ATORY - 09/01/2015 12:38 PM LIQUOR TESTER HIV-1 p24 and HIV-1/HIV-2 Ab not detected us Stanley GRIGGS SEND OUTS Final Resu lt [facility] [address] [place] [address], from Last 3 Months or Most Recently Relevant to Health Maintenance Insurance MEDICARE PART A HB ONLY [employer] BL[employer] HB ONLY [employer] BLUE MR PB ONLY WORKERS COMP Care Teams Search Coordinator Relationship Specialty Start Date End Date Vannessa Alas DO [address] [place] [address] PCP - General Family Practice 10/04/24 Remedios Thomas MD [address] [facility] [address] [place] [address] Psychiatry 10/19/24
--- OUTSIDE RECORDS SUMMARY | 2025-03-22 01:52 | XMS_ITS | Referral Summary ---
Author Organization [facility] Address [address] [place] [address] Care Team Providers Care Assistant Nurse Manager Name Role Phone Rodney Pearson MD Primary Care Provider [phone] Allergies Active Allergy Reactions Criticality Noted Date [...] Comments Blood Pressure 132/88 08/02/2022 9:52 AM STORAGE FACILITY RENTAL CLERK Pulse 88 08/02/2022 9:40 AM STORAGE FACILITY RENTAL CLERK Temperature 36.4 C (97.5 F) 08/02/2022 9:40 AM STORAGE FACILITY RENTAL CLERK Respiratory Rate - - Oxygen Saturation 99% 08/02/2022 9:40 AM STORAGE FACILITY RENTAL CLERK Inhaled Oxygen Concentration - - Weight 88.5 kg (195 lb) 08/02/2022 9:40 AM STORAGE FACILITY RENTAL CLERK Height 177.8 cm (5' 10) 08/02/2022 9:40 AM STORAGE FACILITY RENTAL CLERK Body Mass Index 27.98 08/02/2022 9:40 AM STORAGE FACILITY RENTAL CLERK Plan of Treatment Not on file Care Teams Assistant Nurse Manager Relationship Specialty Start Date End Date Rodney Pearson MD [address] [facility] [address] [place] [address] PCP - General Family Medicine - 07/25/22
== END 2025-03-18 19:46 | disposition home or self-care (01) ==
LOC: AMB 03-21 13:37
PROVIDERS: PCP Family Medicine; Visit Provider Student in an Organized Health Care Education/Training Program
DX: R56.9 Unspecified convulsions (principal)
CPT/HCPCS: A0998

== ENCOUNTER 2025-04-02 19:11 | Emergency (ER) | payer MEDICARE, BC, SELFPAY ==
--- OUTSIDE RECORDS SUMMARY | 2025-04-02 19:13 | XMS_ITS | Clinical Summary ---
Author Organization [facility] [employer] [facility] Address [address] [address] Phone Care Team Providers Care Model Builder Name Role Phone Choice, No Pcp-Patient Primary [...] Comments Blood Pressure 140/85 11/28/2022 8:45 PM HARDNESS TESTER Pulse 89 11/28/2022 8:45 PM HARDNESS TESTER Temperature 37.1 C (98.8 F) 11/28/2022 6:56 PM HARDNESS TESTER Respiratory Rate 11 11/28/2022 8:45 PM HARDNESS TESTER Oxygen Saturation 97% 11/28/2022 8:45 PM HARDNESS TESTER Inhaled Oxygen Concentration - - Weight 81.6 kg (180 lb) 11/25/2022 10:35 PM HARDNESS TESTER Height 177.8 cm (5' 10) 11/25/2022 10:35 PM HARDNESS TESTER Body Mass Index 25.83 11/25/2022 10:35 PM HARDNESS TESTER Plan of Treatment Health Maintenance Due Date [...] patient's age to complete this topic [place] [place] [address] [facility] Commercial Address: [facility] [id number] [place] [address] Care Teams Model Builder Relationship Specialty Start Date End Date Choice, No Pcp-Patient PCP - General 11/25/22
--- OUTSIDE RECORDS SUMMARY | 2025-04-02 19:13 | XMS_ITS | Clinical Summary ---
Author Organization [facility] Address [address] [place] [address] Care Team Providers Care Crowning Inspector Name Role Phone Lucy Augustine MEGHAN Primary Care Provider [phone] Allergies No known active allergies Social History [...] topic HIV SCREENING Completed 12/02/2022, 08/31/2015 [facility] Care Teams Crowning Inspector Relationship Specialty Start Date End Date Lucy Augustine [address] [place] [address] PCP - General 05/05/24
--- OUTSIDE RECORDS SUMMARY | 2025-04-02 19:14 | XMS_ITS | Referral Summary ---
Author Organization [facility] Address [address] [place] [address] Care Team Providers Care Territory Account Manager Name Role Phone Rodney Pearson MD Primary Care Provider [phone] Allergies Active Allergy Reactions Criticality Noted Date [...] Comments Blood Pressure 132/88 08/02/2022 9:52 AM PET CARETAKER Pulse 88 08/02/2022 9:40 AM PET CARETAKER Temperature 36.4 C (97.5 F) 08/02/2022 9:40 AM PET CARETAKER Respiratory Rate - - Oxygen Saturation 99% 08/02/2022 9:40 AM PET CARETAKER Inhaled Oxygen Concentration - - Weight 88.5 kg (195 lb) 08/02/2022 9:40 AM PET CARETAKER Height 177.8 cm (5' 10) 08/02/2022 9:40 AM PET CARETAKER Body Mass Index 27.98 08/02/2022 9:40 AM PET CARETAKER Plan of Treatment Not on file Care Teams Territory Account Manager Relationship Specialty Start Date End Date Rodney Pearson MD [address] [facility] [address] [place] [address] PCP - General Family Medicine - 07/25/22
--- OUTSIDE RECORDS SUMMARY | 2025-04-02 19:14 | XMS_ITS | Clinical Summary ---
Author Organization [facility] Address [address] [place] [address] Care Team Providers Care Coin Collector Name Role Phone Lucy Augustine APRN C.N.P. Primary Care Provide r Source Comments Patient records contain information from all sites at [facility]. For routine questions regarding patient records, call [phone] during business hours, M-F 8:00 AM - 5:00 PM Central Time. Record requests for emergency care only can be directed to [phone] at any time.[facility] Allergies Active Allergy Reactions Criticality Noted Date [...] (06/23/2020): Added automatically from request for surgery [id number] Encephalitis And Encephalomy elitis Unspecified 05/18/2020 10/20/2023 Rhabdomyolysis 05/16/2020 06/01/2020 Encephalopathy Toxic 05/15/2020 020 Encounters Date Type Department Care Team Description 01/25/2025 Orders Only [facility] MNT Lucy Augustine APRN, C.N.P. 01/14/2025 2:30 PM CDT Telemedicine Department of Neurology in [address] [id number] Albino Vargas M.B., Ch.B. Encephalitis And Encephalomyelitis Unspecified (HCC) (Primary Dx); Seizure (HCC) Discharge Disposition: Home or Self Care from Last 3 Months Immunizations Immunization Administration [...] oz pur e alcohol) last used 03/08 [facility] Utilities Answer Date Recorded In the past 12 months has e [employer], gas, oil, or water [employer] [place] threatened to shut off services in your [...] your living situation today? I have a [facility] place to live 06/08/2024 Education Answer Date Recorded What is the highest level of school you have completed or the highest degree you have received? 12th grade 03/30/2020 Sex and Gender Information Value Date Recorded Sex Assigned at Male 07/01/2021 9:57 AM CDT Legal Sex Male 10:06 PM INTERIOR HORTICULTURIST Gender Identity Male 06/03/2020 8:27 AM CDT Sexual Orientation Lesbian or Signh 06/03/2020 8: 27 AM CDT Last Filed Vital Signs Vital Sign Reading Time Taken Comments Blood Pressure 122/76 08/12/2024 11:18 AM INTERIOR HORTICULTURIST Pulse 75 08/12/2024 11:18 AM INTERIOR HORTICULTURIST Temperature 36 C (96.8 F) 08/12/2024 11:18 AM INTERIOR HORTICULTURIST Respiratory Rate 29 04/10/2024 12:15 AM CDT Oxygen Saturation 96% 08/12/2024 11:18 AM INTERIOR HORTICULTURIST Inhaled Oxygen Concentration - - Weight 110 kg (241 lb 11.2 oz) 08/12/2024 11:18 AM INTERIOR HORTICULTURIST Height 177.8 cm (5' 10) 04/09/2024 9:18 [...] M.D. LAB BLOOD ADD-ON Final Res ult [facility] [address] [place] [address], [facility] in [address] [address] * Hepatitis B Surface Antigen (12/02/2022 8:10 PM CDT) HBs Antigen, S Negative Negative 12/03/2022 7:59 AM CDT SDSC Blood (Blood, Venous) 12/02/2022 8:10 PM CDT 12/03/2022 6:57 AM CDT Yvette Carrera M.D., M.S. LAB MICROBIOLOGY - BLOOD ORDERABLES Final Result [facility] [address] [place] [address] [facility] [address] [place] [address] from Last 3 Months or Most Recently Relevant to Health Maintenance Insurance MEDICARE [facility] Advance Directives For more information, please contact: [phone] * Full Code (Latest Code Status on [...] to: Patient does not have the [facility] Care Teams Coin Collector Relationship Specialty Start Date End Date Lucy Augustine APRN, C.N.P. [facility] [address] PCP - General Family Medicine 03/14/22
--- OUTSIDE RECORDS SUMMARY | 2025-04-02 19:14 | XMS_ITS | Clinical Summary ---
Author Organization [facility] Address [address] [place] [address] Care Team Providers Care Hotel Associate Name Role Phone Rodney Pearson MD Primary Care Provider [phone] Allergies Active Allergy Reactions Criticality Noted Date [...] Comments Blood Pressure 132/88 08/02/2022 9:52 AM ASIAN ART CURATOR Pulse 88 08/02/2022 9:40 AM ASIAN ART CURATOR Temperature 36.4 C (97.5 F) 08/02/2022 9:40 AM ASIAN ART CURATOR Respiratory Rate - - Oxygen Saturation 99% 08/02/2022 9:40 AM ASIAN ART CURATOR Inhaled Oxygen Concentration - - Weight 88.5 kg (195 lb) 08/02/2022 9:40 AM ASIAN ART CURATOR Height 177.8 cm (5' 10) 08/02/2022 9:40 AM ASIAN ART CURATOR Body Mass Index 27.98 08/02/2022 9:40 AM ASIAN ART CURATOR Plan of Treatment Health Maintenance Due Date Last Done Comments Hepatitis C Screening 1996 Anxiety Follow-Up (FOREIGN-7) 1997 Depression Follow-Up (PHQ-9) 1997 COVID-19 Vaccine (4 - 2023-2 5 season) 2024 07/26/2021, 10/26/2020, 10/05/2020 Influenza Vaccine (#1) 2025 , 06/02/2019, 07/16/2012 Adult Tetanus Booster 03/04/2032 03/04/2022 , 05/15/2009 RSV Vaccines (1 - 1-dose 75+ series) 12/17/2071 Pneumococcal Vaccine Aged Out 08/02/2022 No long er eligible based on patient's age to complete this topic Meningococcal B Vaccine Aged Out No l onger eligible based on patient's age to complete this topic Care Teams Hotel Associate Relationship Specialty Start Date End Date Rodney Pearson MD [address] [facility] [address] [place] [address] PCP - General Family Medicine - 07/25/22
--- OUTSIDE RECORDS SUMMARY | 2025-04-02 19:15 | XMS_ITS | Clinical Summary ---
Author Organization [facility] Address [address] [place] [address] Care Team Providers Care Laboratory Supervisor Name Role Phone Bishop Vannessa Ramirez DO Primary Care Provider [phone] Remedios Thomas MD Unavail able Allergies Active [...] 02/10/2025 Travel 02/09/2025 2:00 PM CDT Telemedicine [facility] [address] [place] [address] Elvira Hernandez, [facility] Individual Therapy 02/05/2025 Travel 02/04/2025 Travel 02/04/2025 Telephone [facility] [address] [place] [address] Elvira Hernandez [facility] Care Coordination 02/02/2025 Refill [facility] [address] [place] [address] Remedios Thomas MD Refill Request (Diazepam 10 mg, denied, needs appt.) 01/31/2025 Telephone [facility] [address] [place] [address] Remedios Thomas MD Appointment (SAME DAY ) 01/27/2025 Telephone [facility] [address] [place] [address] Elvira Hernandez [facility] Care Coordination 01/13/2025 Telephone [facility] [address] [place] [address] Elvira Hernandez [facility] Care Coordination 01/12/2025 Telephone [facility] [address] [place] [address] Remedios Thomas MD Questions (SAME DAY SCHEDULING) 01/04/2025 Nurse Triage [facility] [address] [place] [address] Vannessa Alas, muscle twitching from Last 3 [...] on file Legal Sex Male 12:29 PM LODGING MANAGER Gender Identity Not on file Sexual Orientation [...] 10/26/2020, 10/05/2020 Influenza Vaccine (#1) 2025 , 08/02/2022, 08/02/2022, Additional history exists Depression screening for age 12+ 02/09/2026 02/09/2025, 12/10/2024, 12/08/2024, Additional history exists Tetanus booster 03/04/2032 03/04/2022, 05/15/2009 Hepatitis B series for 19+ Completed 04/09, 04/09/2000, 05/03/1997, Additional history exists HIV for age 15-65 Completed 08/31/2015, 08/31/2015 Hepatitis C screening for ag e 18-79 Completed 08/31/2015 Pneumococcal series for age 6-49 Completed 08/02/20 22 Procedures Procedure Name Priority Date/Time Associated Diagnosis Comments ANTI HIV 1/2 STAT 08/31/2015 9:25 PM LODGING MANAGER ANTI HCV STAT 08/31/2015 9:25 PM LODGING MANAGER from Last 3 Months or Most Recently Relevant to Health Maintenance Results * ANTI HCV (08/31/2015 9:25 PM LODGING MANAGER) HEPATITIS C ANTIBODY Non-Reacti ve Non-Reacti ve 09/01/2015 12:40 PM LODGING MANAGER [facility] Blood specimen (specimen) BLOOD SPECIMEN / Unknown Venipuncture / Unknown 08/31/2015 9:25 PM LODGING MANAGER 08/31/2015 9:29 PM LODGING MANAGER Narrative [facility] - 09/01/2015 12:40 PM LODGING MANAGER Antibodies to HCV not detected; does not exclude the possibility of exposure to HCV. Stanley GRIGGS SEND OUTS Final Resu lt [facility] [address] [place] [address] * ANTI HIV 1/2 (08/31/2015 9:25 PM LODGING MANAGER) HIV-1/HIV-2 ANTIBODY Non-Reacti ve Non-Reacti ve 09/01/2015 12:38 PM LODGING MANAGER [facility] Blood specimen (specimen) BLOOD SPECIMEN / Unknown Venipuncture / Unknown 08/31/2015 9:25 PM LODGING MANAGER 08/31/2015 9:29 PM LODGING MANAGER Narrative [facility] - 09/01/2015 12:38 PM LODGING MANAGER HIV-1 p24 and HIV-1/HIV-2 Ab not detected Stanley GRIGGS SEND OUTS Final Resu lt [facility] [address] [place] [address], from Last 3 Months or Most Recently Relevant to Health Maintenance Insurance MEDICARE PART A HB ONLY BLUE [employer] [place] BLUE HB ONLY BL[employer] [place] BLUE MR PB ONLY WORKERS COMP Care Teams Laboratory Supervisor Relationship Specialty Start Date End Date Vannessa Alas DO [address] [place] [address] PCP - General Family Practice 10/04/24 Remedios Thomas MD [address] [facility] [place] [address] Psychiatry 10/19/24
[2025-04-02 19:16] VITALS: BP 130/72; PULSE 99; RESP 18; TEMP 36.7; O2SAT 99; BMI 25.8
--- NOTE | 2025-04-02 20:07 | ED_ITS ---
HPI - General Adult General Date Seen: 04/02/25 Chief complaint: Psychiatric Problem/Disorder Stated complaint: panic attack, cut on eye brow Time Seen by Provider: 04/02/25 20:01 History of Present Illness HPI narrative: 29-year-old male presenting to the ER today with a left upper eyebrow laceration. History is a little bit 10 gentle and difficult to nail down. He told triage nurse that he had slipped on the steps in his left eyelid. He had presented to triage and was brought back to ER room 5. About 8 minutes after triage she stormed out of the ER room 5 saying was waiting too long head leave because he was having a panic attack. He went out to the ER lobby and then came back to the ER to be seen again. He was roomed in the ER room 1. I saw him in ER room 1. He tells me the laceration was actually a dog bite. His many toxin, named ?feel. ? Bit him on the face. The patient tells me that the injury actually occurred last night at about 8:00 p.m.. He knows that his dog is up-to-date on shots, including rabies. The patient thinks that he is up-to-date on his tetanus but cannot remember for sure. The patient also says that, ?I am growing. Previously had might have asked you for pain meds or anxiety meds. Tonight I do not want any meds. I just want you to fix of my eyebrow. ? Later, the patient is displaying signs of emotional lability. He is going from inappropriate bouts of laughter to inappropriate tearfulness and crying out. He shouts ?no one is going to help me!?. When I addressed his emotional lability he breaks down and starts crying. He says he has a history of mental health but will not tell me what his diagnoses were. He also has a history is of substance abuse including alcohol. He has been through treatment at least twice( in 2021 and in 2022). He says he had been sober from drinking since October 12 up until today when he relapsed. When asked why he relapsed today he says he is stressed out because his mother normally manages his finances. He apparently has a history of over spending due to his mental health. Today, she told him that she would no longer manage his finances so all of his a counts have been transferred back to his name. He also says he is having trouble dealing with his sister because she has psychosis. He has a brother who of an alcohol-related single car accident. In addition to alcohol, he says he was using his marijuana vape pen today. He denies other drugs. He says he was drinking a bottle of vodka. He also changes his story about how the laceration occurred. He thinks he probably fell today. Related Data Home Medications ?Medication ?Instructions ?Recorded ?Confirmed fluoxetine 40 mg capsule 60 mg PO QAM 11/10/24 hydroxyzine HCl PO PRN 11/10/24 11/10/24 diazepam 5 mg tablet 5 mg PO DAILY PRN 11/22/24 0 04/02/25 diazepam 10 mg tablet 10 mg PO BID PRN 04/02/25 divalproex 500 mg tablet,delayed 500 mg PO BID 5 04/02/25 release lamotrigine 200 mg tablet,extended 400 mg PO DAILY 09/1504/02/25 release 24 hr Previous Rx's ?Medication ?Instructions ?Recorded ibuprofen 600 mg tablet 600 mg PO Q6H PRN #30 tabs 0 11/22/24 amoxicillin 875 mg-potassium 1 tab PO BID #10 tabs 09/15 clavulanate 125 mg tablet Allergies Allergy/AdvReac Type Severity Reaction Status Date / Time baclofen Allergy Mild itchy Verified 04/02/25 19:27 [facility] Medical History (Updated 04/02/25 @ 20:46 by Ghulam Paniagua MD) Anxiety ?F41.9 - Anxiety disorder, unspecified (ICD-10) Seizure ?R56.9 - Unspecified convulsions (ICD-10) Social History Smoking Status: Never smoker Do you use any of these nicotine containing products: Vaping Products How often do you have a drink containing alcohol: never How often do you have six or more drinks on one occasion: Never AUDIT-C Alcohol total score: 0 Non-prescribed substance use: marijuana (any form) Exam Narrative: Exam Narrative: Constitutional: Appears well-developed and well-nourished. Alert. Conversant. Non toxic. HENT: Head: No depressed skull fracture, Raccoon Eyes, Retana's sign, or hemotympanum. Face normal. TMs normal. Nose: Nose normal. Mouth/Throat: Oral mucosa is clear and moist. no trismus. Pharynx normal. Tonsils symmetric. No tonsillar enlargement, erythema, or exudate. Eyes: There is a 5-6 mm laceration on the left upper eyelid chest inferior to the lower border of the lower left eyebrow. No exophthalmos or enophthalmos. No swelling of the face. No hematoma. Conjunctivae normal. EOM normal. Pupils equal, round, and reactive to light but both are quite dilated about 8 cm. No scleral icterus. Neck: Normal range of motion. Neck supple. No tracheal deviation present. Cardiovascular: Normal rate, regular rhythm. No gallop. No friction rub. No murmur heard. Symmetric radial artery pulses Pulmonary/Chest: Effort normal. No stridor. No respiratory distress. No wheezes. No rales. No rhonchi . No tenderness. Abdominal: Soft. Bowel sounds normal. No distension. No mass. No tenderness. No rebound. No guarding. Musculoskeletal: RUE: Normal range of motion. No tenderness. No deformity LUE: Normal range of motion. No tenderness. No deformity RLE: Normal range of motion. No edema. No tenderness. No deformity LLE: Normal range of motion. No edema. No tenderness. No deformity Neurological: Alert and oriented to person, place, and time. Normal strength. CN II-VII intact. No sensory deficit. GCS eye subscore is 4. GCS verbal subscore is 5. GCS motor subscore is 6. Normal coordination Skin: Skin is warm and pink. He is not sweaty or diaphoretic. Skin is not overly dry to suggest anticholinergic. No rash noted. No pallor. Normal capillary refill. Psychiatric: Very limited. He had very labile behavior. He had presented to triage for the eyebrow laceration. He was in ER room 6 for just a couple of minutes before he abruptly left the before a doctor could cm. He then came back. Since I saw him in ER room 1, he had emotional lability. Sometimes inappropriate laughter and often times inappropriate crying. He says he relapsed with alcohol today. He also endorses using his THC vape pen. He denies other drugs but has very dilated pupils which may be suspicious for sympathomimetic. He has says he needs help with his drinking and substance abuse. Sounds like he just relapsed today with alcohol. He also says he ?needs help with his mental health? but cannot be more specific. When asked directly he denies any auditory or visual hallucinations. He denies any thoughts of self-harm. He is not suicidal. Although he was initially quite anxious and was leaving the ER prior to even being seen, now that he and I have talked he is repetitively endorsing that he does ?need help. ?. He is willing to stay here in the ER for a laboratory workup and evaluation. He and I discussed that he will probably be many hours before his clinically sober and can be properly evaluated from a mental standpoint this means he may need to stay here in the ER overnight. He is willing to do so. However because of his very erratically behavior, I am going to place him on a 72 hour hold. He understands that if we do this he will not be allowed to leave. He verbalizes understanding. However he is still quite tearful. Const: Vital Signs, click to edit/add: Vital Signs - 24 hr 04/02/25 19:16 Temperature 98.0 F Pulse Rate [Right Pulse Oximeter] 99 Respiratory Rate 18 Blood Pressure [Ri ght Upper Arm] 130/72 Pulse Oximetry 99 Oxygen Delivery Me thod Room Air Course Vital Signs Vital signs: Initial Vital Signs Temperature 98.0 F 04/02/25 19:16 Temperature Source Temporal Artery Scan 04/02/25 19:16 Pulse Rate 99 04/02/25 19:16 Respiratory Rate 18 04/02/25 19:16 Blood Pressure 130/72 04/02/25 19:16 Blood Pressure Mean 91 04/02/25 19:16 Blood Pressure Position Supine 04/02/25 19:16 Pulse Oximetry 99 04/02/25 19:16 Oxygen Delivery Method Room Air 04/02/25 19:16 Vital Signs Temperature 98.0 F 04/02/25 19:16 Pulse Rate 99 04/02/25 19:16 Respiratory Rate 18 04/02/25 19:16 Blood Pressure 130/72 04/02/25 19:16 Pulse Oximetry 99 04/02/25 19:16 Oxygen Delivery Method Room Air 04/02/25 19:16 Temperature 98.0 F 04/02/25 19:16 Pulse Rate 99 04/02/25 19:16 Respiratory Rate 18 04/02/25 19:16 Blood Pressure 130/72 04/02/25 19:16 Pulse Oximetry 99 04/02/25 19:16 Oxygen Delivery Method Room Air 04/02/25 19:16 Medications Administered Medications: Generic Name Dose Route Start Last Admin Trade Name William PRN Reason Stop Dose Admin Amoxicillin/Clavulanate Potassium 875 mg 04/02/25 20:05 04/02/25 20:12 Amoxicillin/Clavulanate 875 Mg/125 Mg Tablet PO 04/02/25 20:06 875 mg ONCE ONE Administration Medical Decision Making MDM Narrative Medical decision making narrative: Findings and exam are consistent with an uncomplicated left upper eyelid laceration which was repaired as noted above. There is no evidence at this time to suggest any associated fracture or foreign body. Mechanism of the laceration is not clear. His mental status is altered. At 1 point he told me that it was from a dog bite, at another point he told me was from a fall. He told his nurses he thinks he might have had a seizure. I initially started him on prophylactic Augmentin for a potential dog bite. However based on current presentation, I suspect this probably is from a fall rather than dog bite. Indications to seek urgent reevaluation and signs of infection (including but not limited to increasing pain, redness, swelling, fevers, and drainage) were reviewed. Tetanus is up-to-date. Since the mechanism of injury is not clear and could have been a dog bite we are going to start him on prophylactic antibiotics. First dose of Augmentin was administered here in the ER. Prescription for Augmentin has already been written. From a mental health standpoint the patient is very labile and a retic here in the ER. Displaying signs of potential alcohol or drug intoxication or possibly even psychosis from mental health crisis. He is endorsing, after a deeper questioning that he did relapse of alcohol today was drinking heavily. He is tearful and says he is not safe at home. However he denies any thoughts of self-harm. He denies hallucinations. At this point I think he needs further mental health assessment. I have ordered laboratory workup to check his alcohol level and other labs. With signs of head trauma with the eyebrow laceration I o rdered a head CT although I do not see any signs of severe head trauma such as forehead or scalp contusion. Discussed with my oncoming partner, Dr. Lopez who will follow up on the patient's out setting labs and imaging. She will observe the patient here in the ER until he is clinically sober. At that point he can be assessed by [facility]. I have placed the patient on a 72 hour hold because of his erratic behavior. He understands this means he cannot leave the ER until he is cleared by his physician. Lab Data Labs: Lab Results 04/02/25 Range/Units 20:23 Ur Drug Screen Comment See Note Discharge Plan Discharge Clinical Impression: Complex laceration of left eyebrow, Acute alteration in mental status Condition: Stable Instructions: Skin Adhesive Care (ED), Facial Laceration (ED) Additional Instructions: As we discussed, keep the laceration and the skin glue clean and dry. Come back to the ER right away if he develops signs of infection such as redness, swelling , pus draining from your wound or any problems. The glue should peel off on its own in about 7-10 days. Prescriptions: New amoxicillin-pot clavulanate 875-125 mg tablet 1 tab PO BID Qty: 10 0RF No Action fluoxetine 40 mg capsule 60 mg PO QAM hydroxyzine HCl PO PRN divalproex 500 mg tablet,delayed release (DR/EC) 500 mg PO BID diazepam 10 mg tablet 10 mg PO BID PRN lamotrigine 200 mg tablet extended release 24hr 400 mg PO DAILY diazepam 5 mg tablet 5 mg PO DAILY PRN ibuprofen 600 mg tablet 600 mg PO Q6H PRNQty: 30 0RF Follow Up/Referrals: Vannessa Alas DO [Primary Care Provider, Family Practice] Stand Alone [facility]: [facility] Inst[facility] Procedures Laceration Left upper eyelid laceration: Pre procedure diagnosis: Left upper eyelid laceration Verification/time out: correct patient and correct site Site: face (Left upper eyelid) Side (If applicable): left Size (cm): 0.6 Description: linear Depth: simple, single layer Skin layer closed with: other (Dermabond. Careful attention was paid to not get Dermabond the patient's eyelids or glue his eyes shut. No complications were noted.)
--- NOTE | 2025-04-02 20:24 | CRLHL7_ITS ---
For Patients: As a result of the Century Cures Act, medical imaging exams and procedure reports are released immediately into your electronic medical record. You may view this report before your referring provider. If you have questions, please contact your health care provider. INDICATION: Eyebrow laceration, AMS. TECHNIQUE: CT head without contrast. COMPARISON: None. FINDINGS: CSF spaces: Within normal limits for age. Brain parenchyma and extra-axial spaces: The wu-white differentiation is unremarkable. No sign of mass, hemorrhage, or midline shift. No extra-axial fluid collection. Skull base and calvarium: The visualized paranasal sinuses and mastoid air cells demonstrate no acute or significant findings. The visualized orbits are grossly unremarkable. No skull fractures. IMPRESSION: No acute intracranial abnormality. No acute fracture. Please note that all CT scans at this facility use dose modulation, iterative reconstruction, and/or weight-based dosing when appropriate to reduce radiation dose to as low as reasonably achievable. Dictated by Jame Carolina MD @ 04/02/2025 9:09:45 PM (Electronically Signed)
[2025-04-02 20:57] LABS: Cannabinoid Screen Urine POSITIVE (Negative); Methamphetamines Screen Urine Negative (Negative); Tricyclic Antidepressant Urine Negative (Negative)
[2025-04-02 21:13] LABS: Hematocrit 44.7 % (37.0-53.0); Hemoglobin* 15.4 gm/dL (13.5-17.5); Immature Granulocytes Abs Auto 0.01 K/uL (0.00-0.30); Immature Granulocytes Pct Auto 0.1 %; Lymphocytes Absolute Auto 2.64 K/uL (0.90-2.90); Mean Corpuscular HGB Conc 35 gm/dL (32-36); Mean Corpuscular Hemoglobin 32 pg (26-34); Mean Corpuscular Volume 93 fL (80-100); RDW Coefficient of Variation % 12.3 % (11.5-15.5); Red Blood Count 4.81 m/uL (4.30-5.90); White Blood Count* 7.08 K/uL (4.50-11.00)
[2025-04-02 21:20] LABS: Slide Review Reflex No
[2025-04-02 21:26] LABS: Albumin* 5.1 g/dL (3.3-5.0); Chloride* 106 mmol/L (96-114); Potassium* 4.0 mmol/L (3.6-5.1); Sodium* 145 mmol/L (135-149)
[2025-04-02 21:28] LABS: Alanine Aminotransferase* 24 U/L (4-50); Aspartate Amino Transferase* 40 U/L (12-35); Blood Urea Nitrogen* 10 mg/dL (5-24); Creatinine* 1.1 mg/dL (0.5-1.5); Est. Creatinine Clearance* 103.23; Estimated Glomerular Filt Rate 94 ml/min
[2025-04-02 21:29] LABS: Alkaline Phosphatase* 63 U/L (40-150); Anion Gap 13 mEq/L (7-15); Bilirubin Total* 0.5 mg/dL (0.1-1.5); Calcium* 9.8 mg/dL (8.4-10.6); Carbon Dioxide* 26 mmol/L (20-32); Ethanol* 0.25 % (0.01-0.03); Glucose* 94 mg/dL (60-115); Total Protein* 8.1 g/dL (6.0-8.3)
[2025-04-02 21:30] VITALS: BP 125/74; PULSE 90; RESP 18; TEMP 36.7; O2SAT 99
[2025-04-02 21:31] LABS: Acetaminophen* < 10.0 ug/mL (10.0-30.0); Salicylate* < 1.0 mg/dL (1.0-10)
[2025-04-02 21:31] LABS: SARS PCR* Negative SARS-CoV-2 (Negative)
[2025-04-02 22:28] VITALS: BP 130/72; PULSE 99; RESP 18; TEMP 36.7
[2025-04-02 22:29] VITALS: O2SAT 99
[2025-04-02 22:34] VITALS: BP 124/70; PULSE 85; RESP 18; TEMP 36.7; O2SAT 99
== END 2025-04-02 22:54 | disposition home or self-care (01) ==
PROVIDERS: Emergency Provider Emergency Medicine; PCP Family Medicine
DX: S01.112A Laceration without foreign body of left eyelid and periocular area, initial encounter (principal); R41.82 Altered mental status, unspecified; R45.1 Restlessness and agitation; F10.129 Alcohol abuse with intoxication, unspecified
CPT/HCPCS: 12011; 36415; 70450; 80053; 80143; 80179; 80306; 82077; 85025; 87635; 94761; 99284; 99285; A9270

== ENCOUNTER 2025-04-20 18:26 | Outpatient (CLI) | payer MEDICARE, BC, SELFPAY | END 2025-04-20 18:27 | disposition home or self-care (01) | PROVIDERS: PCP Family Medicine; Visit Provider Family Medicine | DX: S09.93XA Unspecified injury of face, initial encounter (principal); R41.82 Altered mental status, unspecified; Y04.8XXA Assault by other bodily force, initial encounter; Y92.039 Unspecified place in apartment as the place of occurrence of the external cause | CPT/HCPCS: A0425; A0427 ==

== ENCOUNTER 2025-04-20 18:47 | Emergency (ER) | payer MEDICARE, BC, SELFPAY ==
[2025-04-20] VITALS (27 sets, daily range): BP systolic 103–141; BP diastolic 27–90; PULSE 87–115; RESP 10–30; TEMP 37.3–38.1; O2SAT 89–100; BMI 23.0
--- OUTSIDE RECORDS SUMMARY | 2025-04-20 18:49 | XMS_ITS | Clinical Summary ---
Author Organization [facility] Address [address] [address] Phone Care Team Providers Care Conference Center Coordinator Name Role Phone Choice, No Pcp-Patient Primary [...] Comments Blood Pressure 140/85 11/28/2022 8:45 PM INTERVENTIONAL RADIOLOGIST Pulse 89 11/28/2022 8:45 PM INTERVENTIONAL RADIOLOGIST Temperature 37.1 C (98.8 F) 11/28/2022 6:56 PM INTERVENTIONAL RADIOLOGIST Respiratory Rate 11 11/28/2022 8:45 PM INTERVENTIONAL RADIOLOGIST Oxygen Saturation 97% 11/28/2022 8:45 PM INTERVENTIONAL RADIOLOGIST Inhaled Oxygen Concentration - - Weight 81.6 kg (180 lb) 11/25/2022 10:35 PM INTERVENTIONAL RADIOLOGIST Height 177.8 cm (5' 10) 11/25/2022 10:35 PM INTERVENTIONAL RADIOLOGIST Body Mass Index 25.83 11/25/2022 10:35 PM INTERVENTIONAL RADIOLOGIST Plan of Treatment Health Maintenance Due Date [...] patient's age to complete this topic Insurance [address] [address] [facility] Commercial Address: [facility] [id number] [place] [id number] Care Teams Conference Center Coordinator Relationship Specialty Start Date End Date Choice, No Pcp-Patient PCP - General 11/25/22
--- OUTSIDE RECORDS SUMMARY | 2025-04-20 18:50 | XMS_ITS | Clinical Summary ---
Author Organization [employer] [facility] [employer] [facility] Address [address] [place] [address] Care Team Providers Care Casting Wheel Operator Name Role Phone Bishop Vannessa Ramirez DO Primary Care Provider [phone] Remedios Thomas MD Unavail able Allergies Active [...] [facility] [place] [facility] [place] [address] [place] [address] Elvira Hernandez, [facility] Individual Therapy 02/05/2025 Travel 02/04/2025 Travel 02/04/2025 Telephone [facility] [address] [place] [address] Elvira Hernandez [facility] Care Coordination 02/02/2025 Refill [facility] [place] [address] [place] [address] Remedios Thomas MD Refill Request (Diazepam 10 mg, denied, needs appt.) 01/31/2025 Telephone [facility] [address] [place] [address] Remedios Thomas MD Appointment (SAME DAY ) 01/27/2025 Telephone [facility] [address] [place] [address] Elvira Hernandez, [facility] Care Coordination from Last 3 Months Immunizations Immunization Administration [...] 20-valent (Prevnar 20) 08/02/2022 Polio Virus, Unspecified 07/04/2001,0503/1998,05/03/1997,03/01 Smallpox-Monkeypox (Jynneos) Live, PF 05/12/2024 Tdap 03/04/2022,05/15/2009 [...] on file Legal Sex Male 12:29 PM SENIOR TRIAL ATTORNEY Gender Identity Not on file Sexual Orientation [...] ANTI HIV 1/2 STAT 08/31/2015 9:25 PM SENIOR TRIAL ATTORNEY ANTI HCV STAT 08/31/2015 9:25 PM SENIOR TRIAL ATTORNEY from Last 3 Months or Most Recently Relevant to Health Maintenance Results * ANTI HCV (08/31/2015 9:25 PM SENIOR TRIAL ATTORNEY) HEPATITIS C ANTIBODY Non-Reacti ve Non-Reacti ve 09/01/2015 12:40 PM SENIOR TRIAL ATTORNEY [facility] Blood specimen (specimen) BLOOD SPECIMEN / Unknown Venipuncture / Unknown 08/31/2015 9:25 PM SENIOR TRIAL ATTORNEY 08/31/2015 9:29 PM SENIOR TRIAL ATTORNEY Narrative [facility] - 09/01/2015 12:40 PM SENIOR TRIAL ATTORNEY Antibodies to HCV not detected; does not exclude the possibility of exposure to HCV. Stanley GRIGGS SEND OUTS Final Resu lt [facility] [address] [place] [address], * ANTI HIV 1/2 (08/31/2015 9:25 PM SENIOR TRIAL ATTORNEY) HIV-1/HIV-2 ANTIBODY Non-Reacti ve Non-Reacti ve 09/01/2015 12:38 PM SENIOR TRIAL ATTORNEY [facility] Blood specimen (specimen) BLOOD SPECIMEN / Unknown Venipuncture / Unknown 08/31/2015 9:25 PM SENIOR TRIAL ATTORNEY 08/31/2015 9:29 PM SENIOR TRIAL ATTORNEY Narrative [facility] - 09/01/2015 12:38 PM SENIOR TRIAL ATTORNEY HIV-1 p24 and HIV-1/HIV-2 Ab not detected Stanley GRIGGS SEND OUTS Final Resu lt [facility] [address] [place] [address], from Last 3 Months or Most Recently Relevant to Health Maintenance Insurance MEDICARE PART A HB ONLY [employer] HB ONLY BL[employer] BLUE MR PB ONLY WORKERS COMP Care Teams Casting Wheel Operator Relationship Specialty Start Date End Date Vannessa Alas DO [address] [place] [address] PCP - General Family Practice 10/04/24 Remedios Thomas MD [address] [place] [address] [place], [place] [id number] Psychiatry 10/19/24
--- OUTSIDE RECORDS SUMMARY | 2025-04-20 18:50 | XMS_ITS | Clinical Summary ---
Author Organization [facility] Address [address] [place] [address] Care Team Providers Care Director Strategic Account Management Name Role Phone Lucy Augustine MEGHAN Primary Care Provider [phone] Allergies No known active allergies Social History [...] (once per calendar year) 2024 INFLUENZA VACCINE (#1) 2025 3, 08/02/2022, 08/29/2020, Additional history exists DTAP/TDAP/TD VACCINE [...] topic HIV SCREENING Completed 12/02/2022, 08/31/2015 [facility] [employer] Care Teams Director Strategic Account Management Relationship Specialty Start Date End Date Lucy Augustine [address] [place] [id number] PCP - General 05/05/24
--- OUTSIDE RECORDS SUMMARY | 2025-04-20 18:50 | XMS_ITS | Clinical Summary ---
Author Organization [facility] Address [address] [place] [address] Care Team Providers Care Scientific Linguist Name Role Phone Rodney Pearson MD Primary Care Provider [phone] Allergies Active Allergy Reactions Criticality Noted Date [...] Comments Blood Pressure 132/88 08/02/2022 9:52 AM ALUMNI RELATIONS OFFICER Pulse 88 08/02/2022 9:40 AM ALUMNI RELATIONS OFFICER Temperature 36.4 C (97.5 F) 08/02/2022 9:40 AM ALUMNI RELATIONS OFFICER Respiratory Rate - - Oxygen Saturation 99% 08/02/2022 9:40 AM ALUMNI RELATIONS OFFICER Inhaled Oxygen Concentration - - Weight 88.5 kg (195 lb) 08/02/2022 9:40 AM ALUMNI RELATIONS OFFICER Height 177.8 cm (5' 10) 08/02/2022 9:40 AM ALUMNI RELATIONS OFFICER Body Mass Index 27.98 08/02/2022 9:40 AM ALUMNI RELATIONS OFFICER Plan of Treatment Health Maintenance Due Date [...] age to complete this topic Care Teams Scientific Linguist Relationship Specialty Start Date End Date Rodney Pearson MD [address] [facility] [address] [place] [address] PCP - General Family Medicine - 07/25/22
--- OUTSIDE RECORDS SUMMARY | 2025-04-20 18:50 | XMS_ITS | Clinical Summary ---
Author Organization [facility] Address [address] [place] [address] Care Team Providers Care Truck Driver Flatbed Name Role Phone Lucy Augustine APRN C.N.P. Primary Care Provide r Source Comments Patient records contain information from all sites at [facility]. For routine questions regarding patient records, call [phone] during business hours, M-F 8:00 AM - 5:00 PM Central Time. Record requests for emergency care only can be directed to [phone] at any time.[facility] Allergies Active Allergy Reactions Criticality Noted [...] (06/23/2020): Added automatically from request for surgery [id number] Encephalitis And Encephalomy elitis Unspecified 05/18/2020 10/20/2023 Rhabdomyolysis 05/16/2020 06/01/2020 Encephalopathy Toxic 05/15/2020 020 Encounters Date Type Department Care Team Description 01/25/2025 Orders Only [facility] PCP [facility] Lucy Augustine APRN, C.N.P. from Last 3 Months Immunizations Immunization Administration [...] oz pur e alcohol) last used 03/08 [facility] Utilities Answer Date Recorded In the past 12 months has e [employer], gas, oil, or water Immunovaccine threatened to shut off services in your [...] your living situation today? I have a [facility] place to live 06/08/2024 Education Answer Date Recorded What is the highest level of school you have completed or the highest degree you have received? 12th grade 03/30/2020 Sex and Gender Information Value Date Recorded Sex Assigned at Male 07/01/2021 9:57 AM CDT Legal Sex Male 10:06 PM SALESPERSON [employer] Gender Identity Male 06/03/2020 8:27 AM CDT Sexual Orientation Lesbian or Singh 06/03/2020 8: 27 AM CDT Last Filed Vital Signs Vital Sign Reading Time Taken Comments Blood Pressure 122/76 08/12/2024 11:18 AM SALESPERSON [employer] Pulse 75 08/12/2024 11:18 AM SALESPERSON [employer] Temperature 36 C (96.8 F) 08/12/2024 11:18 AM SALESPERSON [employer] Respiratory Rate 29 04/10/2024 12:15 AM CDT Oxygen Saturation 96% 08/12/2024 11:18 AM SALESPERSON [employer] Inhaled Oxygen Concentration - - Weight 110 kg (241 lb 11.2 oz) 08/12/2024 11:18 AM SALESPERSON [employer] Height 177.8 cm (5' 10) 04/09/2024 9:18 [...] M.D. LAB BLOOD ADD-ON Final Res ult [facility] [address] [place] [address], [facility] [place] [address] * Hepatitis B Surface Antigen (12/02/2022 8:10 PM CDT) HBs Antigen, S Negative Negative 12/03/2022 7:59 AM CDT [facility] Blood (Blood, Venous) 12/02/2022 8:10 PM CDT 12/03/2022 6:57 AM CDT us Yvette Carrera M.D., M.S. LAB MICROBIOLOGY - BLOOD ORDERABLES Final Result [facility] [address] [place] [address] [facility] [address] [place] [address] from Last 3 Months or Most Recently Relevant to Health Maintenance Insurance MEDICARE [facility] Advance Directives For more information, please contact: [phone] * Full Code (Latest Code Status on [...] Due to: Patient does not have the [facility] Care Teams Truck Driver Flatbed Relationship Specialty Start Date End Date Lucy Augustine APRN, C.N.P. [address] [place] [id number] PCP - General Family Medicine 03/14/22
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
[2025-04-20 19:39] LABS: Hematocrit 39.5 % (37.0-53.0); Hemoglobin* 14.1 gm/dL (13.5-17.5); Immature Granulocytes Pct Auto 0.8 %; Mean Corpuscular HGB Conc 36 gm/dL (32-36); Mean Corpuscular Hemoglobin 33 pg (26-34); Mean Corpuscular Volume 93 fL (80-100); RDW Coefficient of Variation % 12.9 % (11.5-15.5); Red Blood Count 4.27 m/uL (4.30-5.90); White Blood Count* 15.47 K/uL (4.50-11.00)
[2025-04-20 19:50] LABS: Immature Granulocytes Abs Auto 0.10 K/uL (0.00-0.30); Lymphocytes Absolute Auto 0.70 K/uL (0.90-2.90); Slide Review Reflex No
[2025-04-20 19:53] LABS: Chloride* 98 mmol/L (96-114); Potassium* 4.1 mmol/L (3.6-5.1); Sodium* 133 mmol/L (135-149)
[2025-04-20 19:56] LABS: Anion Gap 13 mEq/L (7-15); Blood Urea Nitrogen* 12 mg/dL (5-24); Calcium* 9.9 mg/dL (8.4-10.6); Carbon Dioxide* 22 mmol/L (20-32); Creatinine* 0.8 mg/dL (0.5-1.5); Est. Creatinine Clearance* 141.12; Estimated Glomerular Filt Rate 124 ml/min; Glucose* 82 mg/dL (60-115)
[2025-04-20 20:06] LABS: INR 0.97 (0.91-1.10); Prothrombin Time 13.6 Seconds
[2025-04-20 20:07] LABS: Ethanol* < 0.01 % (0.01-0.03)
[2025-04-20] MEDS: MIDAZOLAM HCL 1 MG/ML inj 5 MG IM (20:27)
[2025-04-20] MEDS: LEVETIRACETAM 1,000 mg/100 ml INFUSION 2000 MG IVPB (21:20)
[2025-04-20] MEDS: cefTRIAXone 2 GM in 0.9 % SODIUM CHLORIDE Mini-bag 100 ML IVPB (23:30)
[2025-04-21 00:02] VITALS: BP 115/61; PULSE 100; RESP 20; O2SAT 94
[2025-04-21 00:30] VITALS: PULSE 96; O2SAT 96
[2025-04-21] MEDS: VANCOMYCIN 1.5 GM/300 ML 1.5 GM/300 ML PIGGYBACK IVPB (00:37)
== END 2025-04-21 00:44 | disposition short-term general hospital (02) ==
PROVIDERS: Emergency Provider Emergency Medicine; PCP Family Medicine
DX: R56.9 Unspecified convulsions (principal); F10.129 Alcohol abuse with intoxication, unspecified; R50.9 Fever, unspecified; S01.511A Laceration without foreign body of lip, initial encounter; S61.212A Laceration without foreign body of right middle finger without damage to nail, initial encounter; S02.5XXA Fracture of tooth (traumatic), initial encounter for closed fracture; R23.3 Spontaneous ecchymoses; X58.XXXA Exposure to other specified factors, initial encounter
CPT/HCPCS: 36415; 70450; 70486; 71260; 72125; 74177; 80048; 82077; 85025; 85610; 87040; 94761; 99285; 99291; J0696; J1790; J1953; J2060; J2250; J3375; J7030; Q9967

== ENCOUNTER 2025-04-21 00:20 | Outpatient (CLI) | payer MEDICARE, BC, SELFPAY | END 2025-04-21 00:21 | disposition home or self-care (01) | LOC: AMB 04-27 15:27 | PROVIDERS: PCP Family Medicine; Visit Provider Family Medicine | DX: R56.9 Unspecified convulsions (principal); R41.82 Altered mental status, unspecified; R50.9 Fever, unspecified; S01.511A Laceration without foreign body of lip, initial encounter; S02.5XXA Fracture of tooth (traumatic), initial encounter for closed fracture; S61.219A Laceration without foreign body of unspecified finger without damage to nail, initial encounter | CPT/HCPCS: A0425; A0434 ==